=== PATIENT | female | born 2000 | race African-American/Black ===

== ENCOUNTER 2021-12-08 13:44 | Emergency (ER) | payer OTHER ==
--- OUTSIDE RECORDS SUMMARY | 2021-12-08 13:51 | XMS REPORT | Continuity of Care Document ---
:2000 Author Organization [facility] t Address [address] [place] [address] Care Team Providers Name Role Phone No, Pcp [facility] Primary Care Physician Unavailable TONI ALMARAZ Attending Clinician Unavailable TISH LONG Attending Clinician Unavailable KNOW, DOES_NOT Admitting Clinician Unavailable Payers Payer Name Policy Type Policy Number Effective Date Expiration Date S ource Problems Condition Condition Condition Status Onset Resolution Last Treating Co mments Source Name Details Category Date Date Treatment Clinician Date Anxiety Anxiety Disease Active 2018-[address] [facility] LOC (loss LOC (loss Disease Active 2018-[address] [facility] consciousn consciousn 00:00: Me dical ess) ess) 00 Center Seizure-li Seizure-li Disease Active 2018-[address] [facility] activity activity 00:00[facility] Medica l 00 Center Allergies, Adverse Reactions, Alerts Allergy Allergy Status Severity Reaction(s) Onset Inactive Treating Comm ents Source Name Type Date Date Clinician No Known DA Active [facility] 12[facility]20 [facility] d 00 [facility] No Known DA Active [facility] All[facility] 9-28 [facility] d 00 [facility] Social History Social Habit Start Date Stop Date Quantity Comments Source History SDOH [facility] Alcohol Std Drinks [facility]ica [facility] Center History SDOH [facility] Alcohol Binge [facility] History SDOH [facility] Alcohol Comment Medical C enter History of tobacco Smokes tobacco [facility] use daily Hospital Cigarettes smoked 2019-05-20 2019-05-20 Methodi current (pack per 00:00:00 00:00:00 Hospita l day) - Reported Tobacco use and 2019-02-24 2019-02-[address] [facility] [address] [facility] kes exposure 00:00:00 00:00:00 [facility] Alcohol intake 2019-02-24 2019-02-[address] [facility] [facility] es 00:00:00 00:00:00 non-drinker of Medical Ce nter alcohol (finding) History SDOH 2019-02-24 2019-02-[address] [facility] Alcohol Frequency 00:00:00 00:00:00 [facility] Sex [facility]igned At [birth year] [facility] Smoking Status Start Date Stop Date Source Smokes tobacco daily 2019-05-20 00:00:00 [facility] Light tobacco smoker 2019-02-24 00:00:00 [facility] Medications Ordered Filled Start Stop Current Ordering Indication Dosage Frequency Signature Comments Components Source Medication Medication Date Date Medication? Clinician (SIG) Name Name levETIRAcet 2019-0 Yes 500mg Q.5D Take 500 M ethodi am (KEPPRA) 2-[address] 500 MG 22:58: mouth 2 Hospita tablet 51 (two) l times a day. naproxen 2019-0 Yes 250mg Q.5D Take 250 Meth ml (NAPROSYN) 2-[address] 250 MG 22:58: mouth 2 [facility]osp[facility] tablet 51 (two) l times a day with meals. Procedures This patient has no known procedures. Plan of Care Planned Activity Planned Date Details Comments Source Future Scheduled 2021-11-23 INFLUENZA VACCINE (#1) [facility] 00:00[facility]00 [code = INFLUENZA Medical Ce nter VACCINE (#1)] Future Scheduled 2021-03-[address] [facility] Test 00:00:00 (12+) [code = [facility] DEPRESSION SCREENING (12+)] Future Scheduled [address] [facility] Test 00:00:00 (procedure) [code = [facility] [id number]] Future Scheduled 2020-01-29 DTAP/TDAP/TD VACCINES [facility] 00:00[facility]00 (1 - Tdap) [code = Medical C enter DTAP/TDAP/TD VACCINES (1 - Tdap)] Future Scheduled 2019 HEPATITIS C [facility]CRE[facility]ING [facility] 00:00[facility]00 [code = HEPATITIS C Medical Center SCREENING] Future Scheduled [address] [facility] Test 00:00:00 0-64 YRS (1 - PCV) Medical C enter [code = PNEUMOCOCCAL VACCINE 0-64 YRS (1 - PCV)] Future Scheduled 2001 COVID-19 VACCINE (#1) [facility] 00:[facility]:00 [code = COVID-[address] VACCINE (#1)] Encounters Start End Encounter Admission Attending Care Care Encounter Source Date/Time Date/Time Type Type Clinicians Facility Department ID 2019-04-05 Inpatient [facility] KARINA [id number] [facility] 15:40:00 [facility] 2019-05-20 2019-05-20 Emergency [facility] [id number] [place] 00:00:00 00:00:00 [address]ON[address] Results Test Description Test Time Test Comments Results Result Sourc e Comments - XR HAND 3 + V RT 2019-04-05 [place]: St: 18:07:00 REG Name: ALLI GUIDO [facility] : 2000 Age/S: 19/F [address] Unit #: [id number] Loc: [place] [address] Phys: Alfredo Jasso MD Acct: [id number] Dis Date: Status: [facility] ER PHONE #: [phone] Exam Date: 04/05/2019 1740 FAX #: [phone] Reason: [facility] EXAMS: CPT CODE: [id number] XR HAND 3 + V RT [id number] EXAM: Right wrist 3 views Location code: A1 HISTORY: Punched wall COMPARISON: None available FINDINGS: There is no acute fracture or dislocation. There is normal mineralization of the osseous structures. Joint spaces are maintained. Soft tissues are within normal limits. . IMPRESSION: Right wrist No acute osseous abnormality. EXAM: Right hand 3 views Location code: A1 HISTORY: punched wall COMPARISON: None available FINDINGS: There is no acute fracture or dislocation. There is normal mineralization of the osseous structures. Joint spaces are maintained. There is mild soft tissue swelling along the dorsum of the hand. PAGE 1 Signed Report (CONTINUED) [place]: [facility]: REG Name: ALLI GUIDO [facility] : 2000 Age/S: 19/F [address] Unit #: [id number] Loc: [place] [address] Phys: Alfredo Jasso MD Acct: [id number] Dis Date: Status: [facility] ER PHONE #: [phone] Exam Date: 04/05/2019 174 FAX #: [phone] Reason: [facility] EXAMS: CPT CODE: [id number] XR HAND 3 + V RT [id number] (Continued) IMPRESSION: Right hand 1. No acute osseous abnormality. 2. Soft tissue swelling along the dorsum of the hand. at 1807 Reported and signed by: Matthieu Salmeron MD CC: Technologist: Yisel Lin; CEASAR CONNELLY PAGE 2 Signed Report [place]: [facility]: REG Name: ALLI GUIDO [facility] : 2000 Age/S: 19/F [address] Unit #: [id number] Loc: [place] [address] Phys: Alfredo Jasso MD Acct: [id number] Dis Date: Status: REG ER PHONE #: [phone] Exam Date: 04/05/20191739 FAX #: [phone] Reason: puncehd wall EXAMS: CPT CODE: [id number] XR HAND 3 + V RT [id number] (Continued) [facility] Date/Time/By: 04/05/2019 (180) : By: [email or web address] PAGE 3 Signed Report - XR WRIST 3 + V 2019-04-05 [place]: [facility]: RT 18:07:00 REG Name: ALLI GUIDO [facility] : 2000 Age/S: 19/F [address] Unit #: [id number] Loc: [place] [address] Phys: Alfredo Jasso MD Acct: [id number] Dis Date: Status: REG ER PHONE #: [phone] Exam Date: 04/05/20191739 FAX #: [phone] Reason: pain s/p punchthroug wall EXAMS: CPT CODE: [id number] XR WRIST 3 + V RT [id number] EXAM: Right wrist 3 views Location code: A1 HISTORY: Punched wall COMPARISON: None available FINDINGS: There is no acute fracture or dislocation. There is normal mineralization of the osseous structures. Joint spaces are maintained. Soft tissues are within normal limits. . IMPRESSION: Right wrist No acute osseous abnormality. EXAM: Right hand 3 views Location code: A1 HISTORY: punched wall COMPARISON: None available FINDINGS: There is no acute fracture or dislocation. There is normal mineralization of the osseous structures. Joint spaces are maintained. There is mild soft tissue swelling along the dorsum of the hand. PAGE 1 Signed Report (CONTINUED) [place]: [facility]: REG Name: ALLI GUIDO [facility] : 2000 Age/S: 19/F [address] Unit #: [id number] Loc: [place] [address] Phys: Alfredo Jasso MD Acct: [id number] Dis Date: Status: REG ER PHONE #: [phone] Exam Date: 04/05/2019 4130 FAX #: [phone] Reason: pain s/p punchthroug wall EXAMS: CPT CODE: [id number] XR WRIST 3 + V RT [id number] (Continued) IMPRESSION: Right hand 1. No acute osseous abnormality. 2. Soft tissue swelling along the dorsum of the hand. at 1807 Reported and signed by: Matthieu Salmeron MD CC: Technologist: Corina Lin PAGE 2 Signed Report [place]: [facility]: REG Name: ALLI GUIDO [facility] : 2000 Age/S: 19/F [address] Unit #: [id number] Loc: [place] [address] Phys: Alfredo Jasso MD Acct: [id number] Dis Date: Status: REG ER PHONE #: [phone] Exam Date: 04/05/2019 1740 FAX #: [phone] Reason: pain s/p punchthroug wall EXAMS: CPT CODE: [id number] XR WRIST 3 + V RT [id number] (Continued) Trnscrd Date/Time/By: 04/05/2019 (180) : By: [email or web address] PAGE 3 Signed Report HCG POC 2019-04-05 16:36:00 Test Item Value Reference Range Interpretation Comme nts HCG POC <5.0 0-4.9 N Results of (test IU/L 5.0-25.0 IU/L a re indeterminate and do not ruleout . Because code = HCG values doub le approximately every48 hours in a normal , HCGPOC) patients with l ow levels ofHCG should be resampled and retested after 48 hours toconf irm . URINALYSIS [id number] 16:21:00 Test Item Value Reference Range Interpretation Comments UA COLOR (test code = COLU) Straw Yellow UA APPEARANCE (test code = Clear Clear APPU) UA GLUCOSE DIPSTICK (test Negative Negative code = DGLUU) UA BILIRUBIN DIPSTICK (test Negative Negative code = BILU) UA KETONE DIPSTICK (test code Negative mg/dL Negative = KETU) UA SPECIFIC GRAVITY (test 1.002 <1.030 code = SGU) UA BLOOD DIPSTICK (test code Negative Negative = YAS) UA PH DIPSTICK (test code = 7.0 5.0-8.0 MARIANO) UA PROTEIN DIPSTICK (test NEGATIVE mg/dL Negative code = PROU) UA UROBILINOGEN DIPSTICK Negative mg/dL Negative (test code = URO) UA NITRITE DIPSTICK (test Negative Negative code = ONEYDA) UA LEUKOCYTE ESTERASE NEGATIVE Negative DIPSTICK (test code = LEUU) UA WBC (test code = WBCU) 0-3 /HPF <4-5 UA RBC (test code = RBCU) 0-3 /HPF <4-5 UA BACTERIA (test code = Rare /HPF None-Rare BACU) UA SQUAMOUS CELLS (test code 0-5 (RARE) /HPF 0-5 (RARE) = SQU) BASIC METABOLIC [id number] 16:20:00 Test Item Value Reference Range Interpretation Comments SODIUM (test code = 136 mmol/L 137-145 L NA) POTASSIUM (test code 5.1 mmol/L 3.4-5.0 H IS THE SAMPLE = K) HEMOLYZED?:YHEM OLYSIS GRADE:2+ CHLORIDE (test code = 104 mmol/L 98-107 N CL) CARBON DIOXIDE (test 27 mmol/L 22-30 N code = CO2) GLUCOSE (test code = 89 mg/dL 74-106 N GLU) BLOOD UREA NITROGEN 12 mg/dL 7-17 N (test code = BUN) GLOMERULAR FILTRATION 140 >60 The es timated RATE (test code = glomerular filtration GFR) rate is compute d usingpatient ra ce, age (>18), sex, and serum creatinine. If anyof the needed data elements are mi ssing the Laboratory cannot compute an kenzie mation of the glomerul ar filtration rate . CREATININE (test code 0.7 mg/dL 0.5-1.0 N = CREAT) CALCIUM (test code = 8.9 mg/dL 8.4-10.2 N CA) CBC W/AUTO [id number] 16:11:00 Test Item Value Reference Range Interpretation Comments WHITE BLOOD CELL (test code = 5.9 x10 3/uL 5.0-12.0 N WBC) RED BLOOD CELL (test code = 4.52 x10 6/uL 4.20-5.40 N RBC) HEMOGLOBIN (test code = HGB) 11.3 g/dL 12.0-16.0 L HEMATOCRIT (test code = HCT) 33.3 % 36.0-46.0 L MEAN CELL VOLUME (test code = 74 fL 81-99 L MCV) MEAN CELL HGB (test code = MCH) 25.0 pg 27-31 L MEAN CELL HGB CONCENTRATION 33.9 g/dL 33-37 N (test code = MCHC) RED CELL DISTRIBUTION WIDTH 15.5 % 11.5-15.5 N (test code = RDW) PLATELET COUNT (test code = 357 x10 3/uL 130-400 N PLT) MEAN PLATELET VOLUME (test code 10.3 fL 9.4-16.4 N = MPV) NEUTROPHIL % (test code = NT%) 65.7 % 43-65 H IMMATURE GRANULOCYTE % (test 0.3 % 0.0-2.0 N code = IG%) LYMPHOCYTE % (test code = LY%) 24.2 % 20.5-45.5 N MONOCYTE % (test code = MO%) 8.0 % 5.5-11.7 N EOSINOPHIL % (test code = EO%) 1.5 % 0.9-2.9 N BASOPHIL % (test code = BA%) 0.3 % 0.2-1.0 N NUCLEATED RBC % (test code = 0.0 % 0-1.0 N NRBC%) NEUTROPHIL # (test code = NT#) 3.87 x10 3/uL 2.2-4.8 N IMMATURE GRANULOCYTE # (test 0.02 x10 3/uL 0-0.03 N code = IG#) LYMPHOCYTE # (test code = LY#) 1.43 x10 3/uL 1.3-2.9 N MONOCYTE # (test code = MO#) 0.47 x10 3/uL 0.3-0.8 N EOSINOPHIL # (test code = EO#) 0.09 x10 3/uL 0.0-0.2 N BASOPHIL # (test code = BA#) 0.02 x10 3/uL 0.0-0.1 N MR, BRAIN, [id number] 12:12:00Anesthesia:->NoneDeos the patient have an implanted electronic device?->NoFINAL REPORT MRI Brain with and without contrast Clinical History: Seizure, abnormal neuro examseizure protocol Technique: MRI of the brain utilizing axial T1, T2, FLAIR, GRE, DWI, coronal T1, T2, FLAIR, sagittal T1. Postgadolinium axial and coronal T1-weighted images. Comparisons: None Findings: There is no evidence for focal cortical dysplasia or heterotopia. The hippocampal formations are symmetrical in size, shape, and signal intensity. Brain parenchyma is otherwise normal in morphology. No midline shift. No restricted diffusion to suggest recent ischemic insult. No abnormal susceptibility. No hydrocephalus. Orbits are within normal limits. No obstructive paranasal sinus disease. IMPRESSION: No anatomic etiology of seizure identified. Signed: Davon Turnerort Verified Date/Time: 02/25/2019 12:12:10 Reading Location: [facility] B1 C013W Consult Reading Room RAPID DRUG SCREEN, [id number] 15:26:00 Test Item Value Reference Range Interpretation Comments BARBITURATE URINE (BEAKER) (test Negative Negative code = 725) BENZODIAZEPINE SCREEN URINE (BEAKER) Positive Negative A (test code = 726) COCAINE (METAB.) SCREEN (BEAKER) Negative Negative (test code = 1164) METHADONE SCREEN (BEAKER) (test code Negative Negative = 1436) OPIATE SCREEN URINE (BEAKER) (test Negative Negative code = 734) CANNABINOID SCREEN URINE (BEAKER) Positive Negative A (test code = 727) AMPH/METHAMPH SCREEN (BEAKER) (test Negative Negative code = 1438) PHENCYCLIDINE SCREEN URINE (BEAKER) Negative Negative (test code = 608) DRUG CUTOFF CONC.Cocaine 300 ng/mL Cannabinoid 50 ng/mLBenzodiazepine 200 ng/mLBarbiturate 200 ng/mLPhencyclidine 25 ng/mLOpiate 300 ng/mLMethadone 300 ng/mLAmphetamine/ 1000 ng/mL MethamphetamineThis assay provides an unconfirmed qualitative test result for the clinical management of patients in emergency situations. Chain of custody not maintained. Some pvsp-tji-qdzgjcs medications, as well as adulterants, may cause inaccurate results. Clinical correlation should be applied. A more comprehensive drug screen or confirmation of a detected drug may be performed upon request.COMPREHENSIVE METABOLIC PANEL 2019-02-24 14:54:00 Test Item Value Reference Range Interpretation Comments TOTAL PROTEIN 7.4 gm/dL 6.0-8.5 (BEAKER) (test code = 770) ALBUMIN (BEAKER) 4.3 g/dL 3.5-5.0 (test code = 1145) ALKALINE PHOSPHATASE 73 U/L 30-115 (BEAKER) (test code = 346) BILIRUBIN TOTAL 0.5 mg/dL 0.1-1.3 (BEAKER) (test code = 377) SODIUM (BEAKER) 143 meq/L 135-148 (test code = 381) POTASSIUM (BEAKER) 4.1 meq/L 3.5-5.5 (test code = 379) CHLORIDE (BEAKER) 107 meq/L 98-106 H (test code = 382) CO2 (BEAKER) (test 26 meq/L 20-31 code = 355) BLOOD UREA NITROGEN 11 mg/dL 10-26 (BEAKER) (test code = 354) CREATININE (BEAKER) 0.86 mg/dL 0.50-1.20 (test code = 358) GLUCOSE RANDOM 83 mg/dL 70-110 (BEAKER) (test code = 652) CALCIUM (BEAKER) 9.2 mg/dL 8.5-10.5 (test code = 697) AST (SGOT) (BEAKER) 15 U/L 5-40 (test code = 353) ALT (SGPT) (BEAKER) 9 U/L 6-50 (test code = 347) EGFR (BEAKER) (test 104 INSUFFIC IENT code = 1092) mL/min/1.73 sq CLINICAL DATA TO m CALCULATE ESTIM ATED GFR. URINALYSIS W/ [id number] 14:29:00 Test Item Value Reference Range Interpretation Comments COLOR (BEAKER) (test code = 470) Yellow CLARITY (BEAKER) (test code = 469) Hazy SPECIFIC GRAVITY UA (BEAKER) (test 1.030 1.001-1.035 code = 468) PH UA (BEAKER) (test code = 467) 6.0 5.0-8.0 PROTEIN UA (BEAKER) (test code = Negative Negative 464) GLUCOSE UA (BEAKER) (test code = Negative Negative 365) KETONES UA (BEAKER) (test code = Negative Negative 371) BILIRUBIN UA (BEAKER) (test code = Negative Negative 462) BLOOD UA (BEAKER) (test code = 461) Negative Negative NITRITE UA (BEAKER) (test code = Negative Negative 465) LEUKOCYTE ESTERASE UA (BEAKER) Negative Negative (test code = 466) UROBILINOGEN UA (BEAKER) (test code 2.0 mg/dL 0.2-1.0 H = 463) RBC UA (BEAKER) (test code = 519) 1 /HPF WBC UA (BEAKER) (test code = 520) 2 /HPF BACTERIA (BEAKER) (test code = 517) Moderate MUCUS (BEAKER) (test code = 1574) Many SQUAMOUS EPITHELIAL (BEAKER) (test 6 /HPF code = 516) HYALINE CASTS (BEAKER) (test code = 2 /LPF 514) SOURCE(BEAKER) (test code = 2905) CBC W/PLT COUNT & AUTO [id number] 14:22:00 Test Item Value Reference Range Interpretation Comments WHITE BLOOD CELL COUNT 5.5 K/ L 4.0-10.0 (BEAKER) (test code = 775) RED BLOOD CELL COUNT 5.00 M/ L 4.20-5.80 (BEAKER) (test code = 761) HEMOGLOBIN (BEAKER) 12.6 GM/DL 13.0-16.8 L (test code = 410) HEMATOCRIT (BEAKER) 37.0 % 36.0-50.0 (test code = 411) MEAN CORPUSCULAR VOLUME 74.0 fL 82.0-99.0 L (BEAKER) (test code = 753) MEAN CORPUSCULAR 25.2 pg 27.0-33.0 L HEMOGLOBIN (BEAKER) (test code = 751) MEAN CORPUSCULAR 34.1 GM/DL 32.0-36.0 HEMOGLOBIN CONC (BEAKER) (test code = 752) RED CELL DISTRIBUTION 16.0 % 12.0-15.0 H WIDTH (BEAKER) (test code = 412) PLATELET COUNT (BEAKER) 356 K/CU MM 150-430 (test code = 756) MEAN PLATELET VOLUME 10.0 fL 6.0-11.5 MPV-Danilo roximately (BEAKER) (test code = 20% po sitive bias 754) due to method change. NUCLEATED RED BLOOD 0 /100 WBC 0-0 CELLS (BEAKER) (test code = 413) NEUTROPHILS RELATIVE 56 % PERCENT (BEAKER) (test code = 429) LYMPHOCYTES RELATIVE 30 % PERCENT (BEAKER) (test code = 430) MONOCYTES RELATIVE 8 % PERCENT (BEAKER) (test code = 431) EOSINOPHILS RELATIVE 6 % PERCENT (BEAKER) (test code = 432) BASOPHILS RELATIVE 1 % PERCENT (BEAKER) (test code = 437) NEUTROPHILS ABSOLUTE 3.06 K/ L 1.80-8.00 COUNT (BEAKER) (test code = 670) LYMPHOCYTES ABSOLUTE 1.63 K/ L 1.48-4.50 COUNT (BEAKER) (test code = 414) MONOCYTES ABSOLUTE 0.45 K/ L 0.00-1.30 COUNT (BEAKER) (test code = 415) EOSINOPHILS ABSOLUTE 0.33 K/ L 0.00-0.50 COUNT (BEAKER) (test code = 416) BASOPHILS ABSOLUTE 0.03 K/ L 0.00-0.20 COUNT (BEAKER) (test code = 417) IMMATURE 0 % 0-0 GRANULOCYTES-RELATIVE PERCENT (BEAKER) (test code = 2801) CT, BRAIN, WITHOUT [id number] 14:15:00Reason for exam:->seizure activityReason for exam:->h/o pseudoseizuresWhat is the patient's sedation requirement?->No SedationFINAL REPORT CT, BRAIN, WITHOUT CONTRAST CLINICAL INDICATION: seizure activityh/o pseudoseizuresfall yesterday/ head contusion COMPARISON: None TECHNIQUE: Noncontrast axial CT imaging of the brain and skull. DOSE REDUCTION: Dose modulation, iterative reconstruction, and/or weight-based adjustment of the mA/kV was utilized to reduce the radiation dose to as low as reasonably achievable. FINDINGS:No intracranial hemorrhage, midline shift or mass effect. Midline structures are normally developed. No hydrocephalus. Orbits are within normal limits. No obstructive paranasal sinus disease. IMPRESSION: No acute intracranial findings If there is persistent clinical concern for intracranial pathology, MR examination is recommended for further characterization. Signed: Davon Turner MDReport Verified Date/Time: 02/24/2019 14:15:38 Reading Location: [facility] C013V Neuro Reading Room Elec tronically signed by: DAVON TURNER MD on 02/24/2019 02:15 PM
[2021-12-08 15:56] LABS: Urine Blood 1+ (Negative); Urine Glucose Negative (Negative); Urine Protein Trace (Negative); Urine Specific Gravity 1.025 (1.005-1.030)
[2021-12-08 16:19] LABS: Urine Mucus 1+ /HPF (None Seen); Urine RBC <5 /HPF (None Seen)
[2021-12-08] MEDS ORDERED: METOCLOPRAMIDE 10 MG/2mL INJ ONE (16:34)
[2021-12-08] MEDS ORDERED: DIPHENHYDRAMINE 50 MG/ML VIAL ONE (16:34)
[2021-12-08] MEDS ORDERED: NA CHLORIDE 0.9% 1,000 ML ONE (16:34)
[2021-12-08] MEDS ORDERED: dexAMETHasone 10 MG/ML VIAL ONE (16:34)
--- NOTE | 2021-12-08 17:00 | RAD REPORT ---
EXAM DESCRIPTION: CT - Head Brain Wo Cont - 12/08/2021 4:48 pm CLINICAL HISTORY: left side headache COMPARISON: No comparisons TECHNIQUE: All CT scans are performed using dose optimization technique as appropriate and may inclu de automated exposure control or mA/KV adjustment according to patient size. FINDINGS: No intracranial hemorrhage, hydrocephalus or extra-axial fluid collection.No areas of brai n edema or evidence of midline shift. The paranasal sinuses and mastoids are clear. The calvarium is intact. IMPRESSION: No acute intracranial abnormality.
[2021-12-08 17:05] LABS: Absolute Lymphocytes (CBC) 1.8 K/uL (0.7-4.9); Lymphocytes % 24.2 % (15.3-44.8); MCV 76.1 fL (80-100); MPV 8.1 fL (7.6-11.3); RBC Red Blood Cell Count 4.47 M/uL (3.86-4.86)
[2021-12-08] MEDS ORDERED: KETOROLAC 30 MG/ML INJ ONE (17:34)
[2021-12-08 17:35] LABS: Potassium 3.8 mmol/L (3.5-5.1)
--- NOTE | 2021-12-08 18:35 | ER ---
Nurse's Notes [facility] Name: Jocy Claros Age: 21 yrs Sex: Female : 2000 Arrival Date: 12/08/2021 Time: 14:15 Bed 28 Private MD: Diagnosis: Headache Presentation: 12/08 14:35 Chief complaint: Patient states: headache for 3 weeks, continued without relief after kr3 taking ibuprofen 400 mg and then taking anbother 400mg an 1 1/2 later. Coronavirus screen: Vaccine status: Patient reports being unvaccinated. Client denies travel out of the [place] in the last 14 days. Ebola Screen: Patient denies travel to an Ebola-affected area in the 21 days before illness onset. Initial Sepsis Screen: Does the patient meet any 2 criteria? No. Patient's initial sepsis screen is negative. Does the patient have a suspected source of infection? No. Patient's initial sepsis screen is negative. Risk Assessment: Do you want to hurt yourself or someone else? Patient reports no desire to harm self or others. Onset of symptoms was December 08, 2021. 14:35 Method Of Arrival: Ambulatory [facility] 14:35 Acuity: FILEMON 3 kr3 Triage Assessment: 14:41 Headache History: The patient has had previous headaches and this one is different than 3 previous episodes. General: Appears in no apparent distress. uncomfortable, Behavior is calm, cooperative, appropriate for age. Pain: Pain currently is 9 out of 10 on a pain scale. Pain began 3 weeks. Neuro: Level of Consciousness is awake, alert, obeys commands, Oriented to person, place, time. Historical: - Allergies: 14:38 No Known Allergies; kr3 - PMHx: 14:38 epilepsy; kr3 - Immunization history:: Adult Immunizations. - Social history:: Smoking status: Patient reports the use of cigarette tobacco products, denies chronic smoking, but will smoke occasionally, Reported history of juuling and/or vaping. Screenin:44 Abuse screen: Denies threats or abuse. Denies injuries from another. Nutritional hb screening: No deficits noted. Tuberculosis screening: No symptoms or risk factors identified. Fall Risk None identified. Assessment: 15:43 General: Appears in no apparent distress. Behavior is calm, cooperative. Pain: Pain hb currently is 9 out of 10 on a pain scale. Neuro: Level of Consciousness is awake, alert, obeys commands, Oriented to person, place, time, situation. Cardiovascular: Patient's skin is warm and dry. Respiratory: Respiratory effort is even, unlabored, Respiratory pattern is regular, symmetrical. GI: No signs and/or symptoms were reported involving the gastrointestinal system. : No signs and/or symptoms were reported regarding the genitourinary system. EENT: No signs and/or symptoms were reported regarding the EENT system. Derm: Skin is pink, warm \T\ dry. Musculoskeletal: No signs and/or symptoms reported regarding the musculoskeletal system. 16:45 Reassessment: Patient appears in no apparent distress at this time. Patient and/or hb family updated on plan of care and expected duration. Pain level reassessed. Patient is alert, oriented x 3, equal unlabored respirations, skin warm/dry/pink. 17:45 Reassessment: Patient appears in no apparent distress at this time. Patient and/or hb family updated on plan of care and expected duration. Pain level reassessed. Patient is alert, oriented x 3, equal unlabored respirations, skin warm/dry/pink. 18:19 Reassessment: Patient appears in no apparent distress at this time. Patient and/or hb family updated on plan of care and expected duration. Pain level reassessed. Patient is alert, oriented x 3, equal unlabored respirations, skin warm/dry/pink. Vital Signs: 14:35 BP 118 / 80; Pulse 68; Resp 16; Temp 98.4; Pulse Ox 100% on R/A; Weight 88.45 kg; kr3 Height 5 ft. 8 in. (172.72 cm); Pain 9/10; 17:45 BP 124 / 78; Pulse 66; Resp 15; Pulse Ox 99% on R/A; Pain 3/10; hb 14:35 Body Mass Index 29.65 (88.45 kg, 172.72 cm) kr3 ED Course: 14:15 Patient arrived in ED. mr 14:33 Noel Banuelos PA is PHCP. cp 14:33 Jefferson Nichols MD is Attending Physician. cp 14:38 Triage completed. kr3 14:42 Arm band placed on right wrist. kr3 15:36 Rola Chauhan, NICOLE is Primary Nurse. hb 15:44 Patient has correct armband on for positive identification. hb 16:35 Inserted saline lock: 22 gauge in left antecubital area, using aseptic technique. Blood hb collected. 16:50 CT Head Brain wo Cont In Process Unspecified. EDMS 18:33 Lam Chadwick MD is Referral Physician. cp 18:44 No provider procedures requiring assistance completed. IV discontinued, intact, hb bleeding controlled, No redness/swelling at site. Administered Medications: 16:35 Drug: NS 0.9% 1000 ml Route: IV; Rate: 1 bolus; Site: left antecubital; hb 16:35 Drug: Reglan (metoCLOPramide) 10 mg Route: IVP; Site: left antecubital; hb 16:35 Drug: Benadryl (diphenhydrAMINE) 25 mg Route: IVP; Site: left antecubital; hb 16:35 Drug: Dexamethasone 10 mg Route: IVP; Site: left antecubital; hb 18:10 Drug: Ketorolac 30 mg Route: IVP; Site: left antecubital; hb Medication: 18:44 VIS not applicable for this client. hb Outcome: 18:34 Discharge ordered by MD. cp 18:44 Discharged to home ambulatory. hb 18:44 Condition: stable 18:44 Discharge instructions given to patient, Instructed on discharge instructions, follow up and referral plans. medication usage, Demonstrated understanding of instructions, follow-up care, medications, Prescriptions given X 2. 18:45 Patient left the ED. hb Signatures: Dispatcher [employer] EDNY Desiree Beyer mr Noel Banuelos PA PA cp Rola Chauhan RN RN hb Irish Hansen RN RN kr3 Corrections: (The following items were deleted from the chart) 14:41 14:38 PMHx: Diabetes mellitus; kr3 kr3
--- NOTE | 2021-12-08 18:35 | EDPHYS ---
Physician Documentation [facility] Name: oJcy Claros Age: 21 yrs Sex: Female : 2000 Arrival Date: 12/08/2021 Time: 14:15 Bed 28 Private MD: ED Physician Jefferson Nichols HPI: 12/08 15:50 This 21 yrs old Black Female presents to ER via Ambulatory with complaints of Headache. cp 15:50 The patient complains of pain to the left bahai and behind left eye. The patient cp describes the headache as aching, waxing and waning. Onset: The symptoms/episode began/occurred 1 month(s) ago. 15:50 Associated signs and symptoms: Pertinent negatives: altered mental status, fever, neck cp stiffness, paresthesias, sinus congestion, sinus tenderness, vision changes, vomiting, weakness. Severity of symptoms: in the emergency department the pain is unchanged, despite home interventions. Patient reports history of epilepsy. Weaned herself off prescribed seizure meds about 6 months ago and reports last seizure approximately 4 months ago. Historical: - Allergies: 14:38 No Known Allergies; kr3 - PMHx: 14:38 epilepsy; kr3 - Immunization history:: Adult Immunizations. - Social history:: Smoking status: Patient reports the use of cigarette tobacco products, denies chronic smoking, but will smoke occasionally, Reported history of juuling and/or vaping. ROS: 15:55 Constitutional: Negative for body aches, chills, fever, poor PO intake. cp 15:55 Cardiovascular: Negative for chest pain, edema, palpitations. cp 15:55 Respiratory: Negative for cough, shortness of breath, wheezing. 15:55 Eyes: Negative for injury, pain, redness, and discharge. cp 15:55 ENT: Negative for drainage from ear(s), ear pain, sore throat, difficulty swallowing, difficulty handling secretions. 15:55 Abdomen/GI: Negative for abdominal pain, nausea, vomiting, and diarrhea. 15:55 : Negative for urinary symptoms. 15:55 Neuro: Positive for headache, Negative for altered mental status, dizziness, numbness, tingling, weakness. 15:55 All other systems are negative. Exam: 16:10 Constitutional: The patient appears in no acute distress, alert, awake, non-toxic, well cp developed, well nourished. 16:10 Head/Face: Normocephalic, atraumatic. cp 16:10 Eyes: Periorbital structures: appear normal, Pupils: equal, round, and reactive to light and accomodation, Extraocular movements: intact throughout, Conjunctiva: normal, no exudate, no injection, Sclera: no appreciated abnormality, Lids and lashes: appear normal, bilaterally. 16:10 ENT: External ear(s): are unremarkable, Ear canal(s): are normal, clear, TM's: dullness, bilaterally, Nose: is normal, Mouth: Lips: moist, Oral mucosa: pink and intact, moist, Posterior pharynx: Airway: no evidence of obstruction, patent, Tonsils: are normal in appearance, Uvula: normal, erythema, is not appreciated, exudate, is not appreciated. 16:10 Neck: ROM/movement: is normal, is supple, without pain, no range of motions limitations, no meningismus, no nuchal rigidity, Lymph nodes: no appreciated lymphadenopathy. 16:10 Chest/axilla: Inspection: normal. 16:10 Cardiovascular: Rate: normal, Rhythm: regular. 16:10 Respiratory: the patient does not display signs of respiratory distress, Respirations: normal, no use of accessory muscles, no retractions, labored breathing, is not present, Breath sounds: are clear throughout, no decreased breath sounds, no stridor, no wheezing. 16:10 Abdomen/GI: Exam negative for discomfort, distension, guarding, Inspection: abdomen appears normal. 16:10 Back: pain, is absent, ROM is normal. 16:10 Neuro: Orientation: to person, place \T\ time. Mentation: is normal, Cerebellar function: is grossly normal, Motor: moves all fours, strength is normal, Sensation: is normal, Gait: is steady, at a normal pace, without difficulty. Vital Signs: 14:35 BP 118 / 80; Pulse 68; Resp 16; Temp 98.4; Pulse Ox 100% on R/A; Weight 88.45 kg; kr3 Height 5 ft. 8 in. (172.72 cm); Pain 9/10; 17:45 BP 124 / 78; Pulse 66; Resp 15; Pulse Ox 99% on R/A; Pain 3/10; hb 14:35 Body Mass Index 29.65 (88.45 kg, 172.72 cm) kr3 MDM: 15:42 Patient medically screened. cp 18:33 Data reviewed: vital signs, nurses notes, lab test result(s), radiologic studies, CT cp scan. 18:33 Counseling: I had a detailed discussion with the patient and/or guardian regarding: the cp historical points, exam findings, and any diagnostic results supporting the discharge/admit diagnosis, radiology results, the need for outpatient follow up, a neurologist, to return to the emergency department if symptoms worsen or persist or if there are any questions or concerns that arise at home. 12/08 15:42 Order name: Urine Microscopic Only; Complete Time: 17:08 12/08 15:57 Order name: Urine Dipstick-Ancillary; Complete Time: 16:18 EDMS 12/08 16:05 Order name: Urine --Ancillary (enter results) em1 12/08 16:20 Order name: CT Head Brain wo Cont; Complete Time: 17:08 cp 12/08 16:20 Order name: CBC with Diff; Complete Time: 17:08 12/08 17:08 Interpretation: Normal except: HGB 11.6; HCT 34.0; MCV 76.1; MCH 26.0; RDW 16.3; cp EOSINOPHIL % 4.6. 12/08 16:20 Order name: BMP; Complete Time: 18:07 cp 12/08 15:42 Order name: Urine Dipstick-Ancillary (obtain specimen); Complete Time: 16:03 12/08 15:42 Order name: Urine Test (obtain specimen); Complete Time: 16:03 12/08 16:20 Order name: IV; Complete Time: 16:48 cp Administered Medications: 16:35 Drug: NS 0.9% 1000 ml Route: IV; Rate: 1 bolus; Site: left antecubital; hb 16:35 Drug: Reglan (metoCLOPramide) 10 mg Route: IVP; Site: left antecubital; hb 16:35 Drug: Benadryl (diphenhydrAMINE) 25 mg Route: IVP; Site: left antecubital; hb 16:35 Drug: Dexamethasone 10 mg Route: IVP; Site: left antecubital; hb 18:10 Drug: Ketorolac 30 mg Route: IVP; Site: left antecubital; hb Disposition Summary: 12/08/21 18:34 Discharge Ordered Location: Home cp Problem: new cp Symptoms: have improved cp Condition: Stable cp Diagnosis - Headache cp Followup: cp - With: Lam Chadwick MD - When: 1 week - Reason: Recheck today's complaints Discharge Instructions: - Discharge Summary Sheet cp - Migraine Headache cp Forms: - Medication Reconciliation Form cp - Thank You Letter cp - Antibiotic Education cp - Prescription Opioid Use cp Prescriptions: - Fioricet 50-300-40 mg Oral capsule - take 1 capsule by ORAL route every 4 hours as needed; 20 capsule; Refills: 0, cp Product Selection Permitted - promethazine 25 mg Oral Tablet - take 1 tablet by ORAL route every 6 hours As needed; 20 tablet; Refills: 0, cp Product Selection Permitted Signatures: Dispatcher [employer] EDMS Noel Banuelos PA PA cp Rola Chauhan, RN RN Irish Hansen RN RN kr3 Corrections: (The following items were deleted from the chart) 14:41 14:38 PMHx: Diabetes mellitus; kr3 kr3
[2021-12-08 22:15] LABS: Urine Specific Gravity/Preg 1.025 (1.005-1.030)
[2021-12-10 02:16] VITALS: BP 118/80; TEMP 98.4; O2SAT 100
== END 2021-12-08 18:45 | disposition home or self-care (01) ==
LOC: ER 13:44
DX: R51.9 Headache, unspecified (principal); G40.909 Epilepsy, unspecified, not intractable, without status epilepticus; F17.210 Nicotine dependence, cigarettes, uncomplicated
CPT/HCPCS: 85025; 80048; 36415; 81025; 70450; 96375; 96374; 99284; J2765; J1200; J1100; J7030; 81003; 81015

== ENCOUNTER 2022-03-25 20:50 | Emergency (ER) | payer OTHER ==
--- OUTSIDE RECORDS SUMMARY | 2022-03-25 20:54 | XMS REPORT | Continuity of Care Document ---
:2000 Author Organization [facility] t Address [address] [place] [address] Care Team Providers Name Role Phone Asked, No Pcp Primary Care Physician Unavailable TONI ALMARAZ Attending Clinician Unavailable TISH LONG Attending Clinician Unavailable KNOW, DOES_NOT Admitting Clinician Unavailable Payers Payer Name Policy Type Policy Number Effective Date Expiration Date Reanna alvarez [facility] - [id number] [employer] [place] (MEDICAID REPLACEMENT - HMO) Problems Condition Condition Condition Status Onset Resolution [...] Known DA [facility] [place] [facility] No Known DA [facility] [place] [facility] Social History Social Habit Start Date Stop Date Quantity Comments Source History of tobacco Cigarette Smoker [facility] use Hospital History SDTX [facility] Alcohol Std Drinks Medica l Center History SDOH [facility] Alcohol Binge Medical [facility] History SDTX [facility] Alcohol Comment Medical C enter Cigarettes smoked 2019-05-20 2019-05-20 [facility] current (pack per 00:00:00 00:00:00 Hospita l day) - Reported Tobacco use and 2019-02-24 2019-02-[address] [facility] exposure 00:00:00 00:00:00 [facility] Center Alcohol intake 2019-02-24 2019-02-[address] [facility] 00:00:00 00:00:00 non-drinker of Medical Ce nter alcohol (finding) History SDOH 2019-02-24 2019-02-[address] [facility] Alcohol Frequency 00:00:00 00:00:00 [facility] Center Sex Assigned At [birth year] [facility] 00:00:00 00:00:00 Hospital Smoking Status Start Date Stop Date Source Smokes tobacco daily 2019-05-20 00:00:00 [facility] Light tobacco smoker 2019-02-24 00:00:00 [facility] Medications Ordered Filled Start Stop Current Ordering Indication Dosage Frequency Signature Comments Components Source Medication Medication Date Date Medication? Clinician (SIG) Name Name levETIRAcet 2020-0 Yes 500mg Q.5D Take 500 M ethodi am (KEPPRA) 2-[address] 500 MG 22:58: mouth 2 Hospita tablet 51 (two) l times a day. naproxen 2020-0 Yes 250mg Q.5D Take 250 Meth ml (NAPROSYN) 2-[address] 250 MG 22:58: mouth 2 Hospita tablet 51 (two) l times a day with meals. levETIRAcet 2020-0 Yes 500mg Q.5D Take 500 M ethodi am (KEPPRA) 2-[address] 500 MG 22:58: mouth 2 Hospita tablet 51 (two) l times a day. naproxen 2020-0 Yes 250mg Q.5D Take 250 Meth ml [...] [facility] 00:00[facility]00 (12+) [code = Medical Center DEPRESSION SCREENING (12+)] Future Scheduled [address] [facility] Test 00:00:00 (procedure) [code = Medical Center 61022830] Future Scheduled 2020-01-29 DTAP/TDAP/TD VACCINES [facility] [...] Facility Department ID 2019-04-05 Inpatient [facility] K[facility] [id number] [facility] 15:40:00 82 [facility] 2021-06-05 2021-06-05 Outpatient PRIV PRIV [id number] [facility] 12:38:00 12:38:00 [id number] Medica l 2021-06-03 2021-06-03 Outpatient PRIV PRIV [id number] [facility] 06:48:00 06:48:00 [id number] Medica l 2021-05-27 2021-05-27 Outpatient PRIV PRIV [id number] [id number] [facility] 07:06:00 07:06:00 [id number] Medica l 2021-05-27 2021-05-27 Outpatient PRIV PRIV [id number] [id number] [facility] 07:06:00 07:06:00 [id number] Medica l 2019-05-20 2019-05-20 Emergency [facility] [id number] [place] 00:00:00 00:00:00 [facility] [address] [facility] Results Test Description Test Time Test Comments Results Result Ángel e Comments - XR HAND 3 + V RT 2019-04-05 [place]: St: 18:07:00 REG Name: LATAALLI Lucian [facility] : 2000 Age/S: 19/F [address] Unit #: [id number] Loc: [place] [address] Phys: Alfredo Jasso MD Acct: [id number] Dis Date: Status: REG ER PHONE #: [phone] Exam Date: 04/05/2019 1740 FAX #: [phone] Reason: [facility] wall EXAMS: CPT CODE: [id number] XR HAND 3 + V RT [id number] EXAM: Right wrist 3 views Location code: [...] the hand. PAGE 1 Signed Report (CONTINUED) [place]: St: REG Name: ALLI GUIDO [facility] : 2000 Age/S: 19/F [address] Unit #: [id number] Loc: [place] [address] Phys: Alfredo Jasso MD Acct: [id number] Dis Date: Status: REG ER PHONE #: [phone] Exam Date: 04/05/2019 1740 FAX #: [phone] Reason: [place] wall EXAMS: CPT CODE: [id number] XR HAND 3 + V RT [id number] (Continued) IMPRESSION: Right hand 1. No acute osseous abnormality. 2. Soft tissue swelling along the dorsum of the hand. at 1807 Reported and signed by: Matthieu Salmeron MD CC: Technologist: Yisel Lin; CEASAR CONNELLY PAGE 2 Signed Report [place]: [facility]: REG Name: ALLI GUIDO [facility] : 2000 Age/S: 19/F [address] Unit #: [id number] Loc: [place] [address] Phys: Alfredo Jasso MD Acct: [id number] Dis Date: Status: REG ER PHONE #: [phone] Exam Date: 04/05/2019 1740 FAX #: [phone] Reason: [facility] wall EXAMS: CPT CODE: [id number] XR HAND 3 + V RT [id number] (Continued) [facility] Date/Time/By: 04/05/2019 (1807) : By: [email or web address] PAGE 3 Signed Report - XR WRIST 3 + V 2019-04-05 [place]: St: RT 18:07:00 REG Name: ALLI [place] : 2000 Age/S: 19/F [address] Unit #: [id number] Loc: [place] [address] Phys: Alfredo Jasso MD Acct: [id number] Dis Date: Status: REG ER PHONE #: [phone] Exam Date: 04/05/2019 1740 FAX #: [phone] Reason: pain s/p [place] wall EXAMS: CPT CODE: [id number] XR WRIST 3 + V RT [id number] EXAM: Right wrist 3 views Location code: [...] the hand. PAGE 1 Signed Report (CONTINUED) [place]: St: REG Name: ALLI [place]wood : 2000 Age/S: 19/F [address] Unit #: [id number] Loc: [place] [address] Phys: Alfredo Jasso MD Acct: [id number] Dis Date: Status: [facility] ER PHONE #: [phone] Exam Date: 04/05/2019 174 FAX #: [phone] Reason: pain s/p [place] wall EXAMS: CPT CODE: [id number] XR WRIST 3 + V RT [id number] (Continued) IMPRESSION: Right hand 1. No acute osseous abnormality. 2. Soft tissue swelling along the dorsum of the hand. at 1807 Reported and signed by: Matthieu Salmeron MD CC: Technologist: Yisel Lin; CEASAR CONNELLY PAGE 2 Signed Report [place]: St: REG Name: ALLI GUIDO [facility] : 2000 Age/S: 19/F [address] Unit #: [id number] Loc: [place] [address] Phys: Alfredo Jasso MD Acct: [id number] Dis Date: Status: REG ER PHONE #: [phone] Exam Date: 04/05/2019 1740 FAX #: [phone] Reason: pain s/p [place] wall EXAMS: CPT CODE: [id number] XR WRIST 3 + V RT [id number] (Continued) Trnncrd Date/Time/By: 04/05/2019 (180) : By: [email or web address] PAGE [...] after 48 hours toconf irm . URINALYSIS [id number] 16:21:00 Test Item Value Reference Range Interpretation [...] /HPF 0-5 (RARE) = SQU) BASIC METABOLIC [id number] 16:20:00 Test Item Value Reference Range Interpretation [...] 8.9 mg/dL 8.4-10.2 N CA) CBC W/AUTO [id number] 16:11:00 Test Item Value Reference Range Interpretation [...] 0.02 x10 3/uL 0.0-0.1 N MR, BRAIN, [id number] 12:12:00Anesthesia:->NoneDeos the patient have an implanted electronic [...] anatomic etiology of seizure identified. Signed: Davon Turner MDReport Verified Date/Time: 02/25/2019 12:12:10 Reading Location: [facility] C0[facility] Consult Reading Room RAPID DRUG SCREEN, [id number] 15:26:00 Test Item Value Reference Range Interpretation [...] situations. Chain of custody not maintained. Some nvrz-dzx-umuymoh medications, as well as adulterants, may cause [...] m CALCULATE ESTIM ATED GFR. URINALYSIS W/ [id number] 14:29:00 Test Item Value Reference Range Interpretation [...] 2 /LPF 514) SOURCE(BEAKER) (test code = 0426) CBC W/PLT COUNT & AUTO [id number] 14:22:00 Test Item Value Reference Range Interpretation [...] (test code = 2801) CT, BRAIN, WITHOUT [id number] 14:15:00Reason for exam:->seizure activityReason for exam:->h/o pseudoseizuresWhat [...] MDReport Verified Date/Time: 02/24/2019 14:15:38 Reading Location: [facility] C013V Neuro Reading Room Elec tronically signed by: DAVON TURNER MD on 02/24/2019 02:15 PM
[2022-03-25] MEDS ORDERED: LEVETIRACETAM 500 MG/5 ML VIAL IV ONE (22:26)
[2022-03-25] MEDS ORDERED: NA CHLORIDE 0.9% 100 ML IV ONE (22:26)
[2022-03-25] MEDS ORDERED: NA CHLORIDE 0.9% 1,000 ML ONE (22:26)
[2022-03-25 22:27] LABS: Absolute Lymphocytes (CBC) 2.3 K/uL (0.7-4.9); Hematocrit 39.9 % (36.0-45.0); Lymphocytes % 25.8 % (15.3-44.8); MCV 74.3 fL (80-100); MPV 8.5 fL (7.6-11.3); RBC Red Blood Cell Count 5.37 M/uL (3.86-4.86)
--- NOTE | 2022-03-25 22:34 | RAD REPORT ---
EXAM DESCRIPTION: CT - Head Brain Wo Cont - 03/25/2022 10:23 pm CLINICAL HISTORY: Seizure disorder, no clinical change COMPARISON: Head Brain Wo Cont dated 12/08/2021 TECHNIQUE: Axial 5 mm thick images of the head were obtained without IV contrast. All CT scans are performed using dose optimization technique as appropriate and may include automated exposure control or mA/KV adjustment according to patient size. FINDINGS: No intracranial hemorrhage, mass, edema or shift of mid-line structures. No acute infarcti on changes seen. No abnormal extra-axial fluid collections. Ventricles are normal. Mastoid air cells and visualized portions of the paranasal sinuses are clear. No acute bony findings. IMPRESSION: Negative non-contrast CT head examination.
[2022-03-25 22:36] LABS: Protime INR 1.28
[2022-03-25 22:45] LABS: ALT/SGPT 18 U/L (13-56); AST/SGOT 19 U/L (15-37); Albumin 3.8 g/dL (3.4-5.0); Alkaline Phosphatase 80 U/L (45-117); BUN Blood Urea Nitrogen 8 mg/dL (7-18); Bicarbonate 28 mmol/L (21-32); Bilirubin Direct 0.1 mg/dL (0-0.2); Bilirubin Total 0.4 mg/dL (0.2-1.0); Glomerular Filtration Rate 96 ml/min (=/>90); Glucose Level 74 mg/dL (74-106); Potassium 3.6 mmol/L (3.5-5.1); Protein, Total 7.5 g/dL (6.4-8.2); Sodium Level 138 mmol/L (136-145)
[2022-03-25 23:02] LABS: Urine Blood Negative (Negative); Urine Glucose Negative (Negative); Urine Protein 1+ (Negative); Urine Specific Gravity >=1.030 (1.005-1.030); Urine pH 6.5 (5.0-7.0)
--- NOTE | 2022-03-25 23:11 | ER ---
Nurse's Notes [facility] Name: Jocy Claros Age: 22 yrs Sex: Female : 2000 Arrival Date: 03/25/2022 Time: 20:56 Bed 10 Private MD: Diagnosis: Epileptic seizures related to external causes, not intractable;Bipolar disorder, unspecified Presentation: 03/25 21:21 Chief complaint: Patient states: she has been having seizures the last couple of months bb she was diagnosed in the past but did not take medication for years but her psychiatrist put her on Keppra 250mg BID last month. Coronavirus screen: At this time, the client does not indicate any symptoms associated with coronavirus-19. Ebola Screen: No symptoms or risks identified at this time. Initial Sepsis Screen: Does the patient meet any 2 criteria? No. Patient's initial sepsis screen is negative. Does the patient have a suspected source of infection? No. Patient's initial sepsis screen is negative. Risk Assessment: Do you want to hurt yourself or someone else? Patient reports no desire to harm self or others. Onset of symptoms is unknown. 21:21 Method Of Arrival: Ambulatory bb 21:21 Acuity: FILEMON 5 bb Triage Assessment: 21:23 General: Appears in no apparent distress. Behavior is calm, cooperative. Pain: Denies bb pain. Neuro: Level of Consciousness is awake, alert, obeys commands, Oriented to person, place, time, situation. Cardiovascular: No deficits noted. Respiratory: Respiratory effort is even, unlabored. GI: No signs and/or symptoms were reported involving the gastrointestinal system. Derm: Skin is dry, Skin is normal, Skin temperature is warm. Musculoskeletal: Circulation, motion, and sensation intact. 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 - Social history:: Smoking status: Patient reports the use of cigarette tobacco products. - Family history:: not pertinent. Screenin:00 [facility] ED Fall Risk Assessment (Adult) History of falling in the last 3 months, vc1 including since admission No falls in past 3 months (0 pts) Confusion or Disorientation Yes (5 pts) Intoxicated or Sedated No (0 pts) Impaired Gait No (0 pts) Mobility Assist Device Used No (0 pt) Altered Elimination No (0 pt) Score/Fall Risk Level 3 or more points = High Risk Maintained a safe environment, Educated pt \T\ family on fall prevention, incl call for assistance when getting out of bed, Assessed \T\ reinforced patient's understanding of fall precautions. Abuse screen: Denies threats or abuse. 22:00 Nutritional screening: No deficits noted. Tuberculosis screening: No symptoms or risk vc1 factors identified. Assessment: 23:00 Reassessment: Patient and/or family updated on plan of care and expected duration. Pain vc1 level reassessed. Patient is alert, oriented x 3, equal unlabored respirations, skin warm/dry/pink. Patient states feeling better. Patient states symptoms have improved. Vital Signs: 21:21 BP 140 / 73; Pulse 62; Resp 16 S; Temp 99.4(O); Pulse Ox 100% on R/A; Weight 90.72 kg bb (R); Height 5 ft. 8 in. (172.72 cm) (R); 22:00 BP 129 / 80; Pulse 65; Pulse Ox 100% ; vc1 23:00 BP 118 / 78; Pulse 66; Pulse Ox 100% ; vc1 21:21 Body Mass Index 30.41 (90.72 kg, 172.72 cm) bb [place] Coma Score: 21:23 Eye Response: spontaneous(4). Verbal Response: oriented(5). Motor Response: obeys bb commands(6). Total: 15. ED Course: 20:56 Patient arrived in ED. ja2 21:23 Triage completed. bb 21:23 Arm band placed on Patient placed in waiting room, Patient notified of wait time. bb 21:44 Noel Cobos MD is Attending Physician. nico 21:54 Felipa Murray RN is Primary Nurse. vc1 22:00 Patient has correct armband on for positive identification. Bed in low position. Call vc1 light in reach. Pulse ox on. NIBP on. 22:10 Inserted saline lock: 22 gauge in left forearm, using aseptic technique. Blood mb4 collected. 22:10 Initial lab(s) drawn, by nj, sent to lab. mb4 22:25 CT Head Brain wo Cont In Process Unspecified. EDHI 23:11 Lam Chadwick MD is Referral Physician. [facility] 23:18 EKG done, by ED staff, reviewed by Noel Cobos MD. mb4 23:40 No provider procedures requiring assistance completed. IV discontinued, intact, vc1 bleeding controlled, No redness/swelling at site. Pressure dressing applied. Administered Medications: 22:36 Drug: NS 0.9% 1000 ml Route: IV; Rate: 1 bolus; Site: left forearm; vc1 23:41 Follow up: IV Status: Completed infusion; IV Intake: 1000ml vc1 22:36 Drug: Keppra (levETIRAcetam) 1000 mg Route: IV; Rate: per protocol; Site: left forearm; vc1 22:51 Follow up: IV Status: Completed infusion; IV Intake: 100ml vc1 Medication: 23:40 VIS not applicable for this client. vc1 Intake: 22:51 IV: 100ml; Total: 100ml. vc1 23:41 IV: 1000ml; Total: 1100ml. vc1 Outcome: 23:11 Discharge ordered by . nico 23:40 Discharged to home ambulatory. vc1 23:40 Condition: good 23:40 Discharge instructions given to patient, Instructed on discharge instructions, follow up and referral plans. medication usage, Demonstrated understanding of instructions, follow-up care, medications, Prescriptions given X 1. 23:41 Patient left the ED. vc1 Signatures: Dispatcher [employer] EDHI Noel Cobos MD MD cha Ballard, Brenda, RN RN Jennifer Cramer mb4 Janeth Campoverde Vanessa RN RN vc1
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
[2022-03-25 23:56] VITALS: TEMP 99.4; O2SAT 100
[2022-03-25 23:58] VITALS: BP 118/78
--- NOTE | 2022-03-27 08:34 | EKG ---
Test Date: 2022-03-25 Test Time: 23:15:55 Certified Neurodiagnostic Technologist: MB MEASUREMENT RESULTS: Intervals: Rate: 70 CT: 160 QRSD: 78 QT: 380 QTc: 410 [place]: P: 73 CT: 160 QRS: 78 T: 23 INTERPRETIVE STATEMENTS: Normal sinus rhythm Nonspecific T wave abnormality Abnormal ECG No previous ECG available for comparison Electronically Signed On 03-27-22 08:31:23 RISK OFFICER by Eric Caruso
== END 2022-03-25 23:41 | disposition home or self-care (01) ==
LOC: ER 20:50
DX: G40.509 Epileptic seizures related to external causes, not intractable, without status epilepticus (principal); F31.9 Bipolar disorder, unspecified; Z72.0 Tobacco use
CPT/HCPCS: 96361; 93005; 85025; 80048; 36415; 80320; 80329 ×2; 85610; 80076; 85730; 81003; 70450; 96374; 99284; J1953; J7030

== ENCOUNTER 2022-11-13 11:29 | Emergency (ER) | payer OTHER ==
--- OUTSIDE RECORDS SUMMARY | 2022-11-13 11:33 | XMS REPORT | Continuity of Care Document ---
:2000 Author Organization [facility] t Address [address] [facility] [address] [place] [address] Care Team Providers Name Role Phone Asked, No Pcp Primary Care Physician Unavailable ILANA SIMEON Attending Clinician Unavailable Ilana Simeon MD Attending Clinician TONI ALMARAZ Attending Clinician Unavailable TISH LONG Attending Clinician Unavailable KNOW, DOES_NOT Admitting Clinician Unavailable Payers Payer Name Policy Type Policy Number Effective Date Expiration Date [facility] [id number] 2017 00:00:00 [facility] - [id number] [place]MEDICAID REPLACEMENT - HMO) Problems Condition Condition Condition Status Onset Resolution Last Treating Co mments Source Name Details Category Date Date Treatment Clinician Date 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 5-25 ity of [place] [address] [place] [address] 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 00:00: [address] Eating Eating Disease Active Univers disorder disorder 5-25 ity of 00:00: [address] LOC (loss LOC (loss Disease Recurre 2018-[address] [facility]04 [facility] conscious[facility]: Me dical ess) ess) 00 Center Anxiety Anxiety Disease Active 2018-[address] [facility] 00[facility] Medical [facility] Center Seizure-li Seizure-li Disease Recurre 2018-[address] ke ke nce 2-03 [facility] activity activity 00:00: Medica l 00 Center Allergies, Adverse Reactions, Alerts Allergy Allergy Status Severity Reaction(s) Onset Inactive Treating Comm ents Source Name Type Date Date Clinician No Known DA Active U [facility] All[facility]ie 12-20 [facility] s 00:00: d 00 [facility] Center No Known DA Active U [facility] Allergie 12-20 [facility] 00:00: d 00 Medical Center NO KNOWN Drug Active Univers ALLERGIE Class ity of S [facility] Social History Social Habit Start Date Stop Date Quantity Comments Source Gender identity [facility] Sexual orientation [facility] SDOH [facility] Alcohol Std Drinks [facility] History SDOH [facility] Alcohol Binge Medical [place] [facility] History of tobacco Cigarette Smoker University of use [facility] Exposure to 2022-08-06 2022-08-16 Not sure [facility] SARS-CoV-2 (event) 00:00:00 15:09:00 [facility] Cigarette 2022-08-16 2022-08-16 University of pack-years 00:00:00 00:00:00 [facility] Tobacco use and 2022-08-16 2022-08-16 Smokeless Universit y of exposure 00:00:00 00:00:00 tobacco non-user [facility] Alcohol Comment 2019-05-20 2019-05-20 couple of times Meth odist 00:00:00 00:00:00 a month Hospital Cigarettes smoked 2019-05-20 2019-05-[address] current (pack per 00:00:00 00:00:00 Hospita l day) - Reported History of Social 2019-05-20 2019-05-[address] function 00:00:00 00:00:00 Hospital Alcohol intake 2019-02-24 2019-02-[address] [facility] 00:00:00 00:00:00 non-drinker of Medical Ce nter alcohol (finding) History SDOH 2019-02-24 2019-02-24 1 [facility] Alcohol Frequency 00:00:00 00:00:00 [facility] Sex Assigned At [birth year] Muslim 00:00:00 00:00:00 Hospital Smoking Status Start Date Stop Date Source Ex-smoker 2022-08-16 00:00:00 2022-08-16 00:00:00 [facility] [place] Smokes tobacco daily 2019-05-20 00:00:00 [facility] Light tobacco smoker 2019-02-24 00:00:00 [facility] Medications Ordered Filled Start Stop Current Ordering Indication Dosage Frequency Signature Comments Components Source Medication Medication Date Date Medication? Clinician (SIG) Name Name omeprazole Yes [id number] 40mg Take 1 Univers 40 mg 5-25 capsule by ity of capsule 00:00: mouth in [place] 00 the Medical morning. Branch omeprazole Yes [id number] 40mg Take 1 Univers 40 mg 5-25 capsule by ity of capsule 00:00: mouth in [place] the . Branch DECARA Yes [id number] Take 1 Univers 1,250 mcg 5-16 capsule by ity of (50,000 00:00: mouth [place] unit) 00 weekly. Medical capsule Branch DECARA Yes [id number] Take 1 Univers 1,250 mcg 5-16 capsule by ity of (50,000 00:00: mouth [place] unit) 00 weekly. Medical capsule Branch traZODone Yes 1 (EACH) Univ ers 50 mg 5-15 BEDTIME ity of tablet 00:00: ( [place] 00 NEEDED) Medical NEEDED FOR Branch SLEEP ARIPiprazol Yes 5mg Take 1 Univ ers e 5 mg 5-15 tablet by ity of tablet 00:00: mouth at [place] 00 bedtime. Medical Branch traZODone Yes 1 (EACH) Univ ers 50 mg 5-15 BEDTIME ity of tablet 00:00: ( [place] 00 NEEDED) Medical NEEDED FOR Branch SLEEP ARIPiprazol Yes 5mg Take 1 Univ ers e 5 mg 5-15 tablet by ity of tablet 00:00: mouth at [place] 00 bedtime. Medical Branch risperiDONE 2022- No 2 (EACH) U nivers 0.5 mg 4-24 05-25 BEDTIME ity of tablet 00:00: 00:00 [place]KE [place] 00 :00 NIGHT FOR Medical 7 NIGHTS, Branch IF NO SIDE EFFECTS INCREASE TO 2 TABS. risperiDONE 2022- No 2 (EACH) U nivers 0.5 mg 4-24 05-25 BEDTIME ity of tablet 00:00: 00:00 [place]KE EVERY [place] 00 :00 NIGHT FOR Medical 7 NIGHTS, Branch IF NO SIDE EFFECTS INCREASE TO 2 TABS. testosteron Yes INJECT Univ ers e cypionate 4-14 0.25 ML ity o f 200 mg/mL 00:00: [place]AM[place]CU [place] injection 00 LARLY ONCE Medi gulshan WEEKLY Branch testosteron Yes INJECT Univ ers e cypionate 4-14 0.25 ML ity o f 200 mg/mL 00:00: [place]AM[place]CU [place] injection 00 LARLY ONCE Medi gulshan WEEKLY Branch levETIRAcet 2020-0 Yes 500mg Q.5D Take 500 [...] (two) l times a day with meals. Vital Signs Vital Name Observation Time Observation Value Comments Source Systolic blood 2022-08-16 20:14:00 118 mm[Hg] Univer sity of pressure [facility] Diastolic blood 2022-08-16 20:14:00 70 mm[Hg] Unive rsity of [facility] Heart rate 2022-08-16 20:14:00 76 /min General acute hospital Body temperature 2022-08-16 20:14:00 36.67 Trista [facility] Respiratory rate 2022-08-16 20:14:00 18 /min [facility] Body height 2022-08-16 20:14:00 172.7 cm General acute hospital Body weight 2022-08-16 20:14:00 86.773 kg General acute hospital BMI 2022-08-16 20:14:00 29.09 kg/m2 General acute hospital Oxygen saturation in 2022-08-16 20:14:00 99 /min [facility] Arterial blood by [facility] Pulse oximetry Branch Procedures This patient has no known procedures. [...] Test 00:00:00 (procedure) [code = Medical Center 59835171] Future Scheduled 2020-01-29 DTAP/TDAP/TD VACCINES CH I [...] Facility Department ID 2019-04-05 Inpatient HCAKW KARINA [id number] [facility] 15:40:00 82 [facility] 2022-10-11 2022-10-11 Outpatient R [facility] [id number] Univers 10:20:00 10:20:00 , ILANA it [facility] 2022-08-16 2022-08-16 Office [facility] [id number] Univers 15:40:00 15:53:34 Visit , Ilana [facility] [id number] ity Vince RAMÍREZ [id number] Malcolm as NANO?BLEA [id number] Ny t[address] MEDICAL OFFICE BUILDING 2022-08-16 2022-08-16 Outpatient R [facility] [id number] Univers 15:40:00 15:53:34 , ILANA [facility] 2021-06-05 2021-06-05 Outpatient PRIV PRIV [id number] [id number] [facility] 12:38:00 12:38:00 [id number] Medica l 2021-06-03 2021-06-03 Outpatient PRIV PRIV [id number] [id number] [facility] 06:48:00 06:48:00 [id number] Medica l 2021-05-27 2021-05-27 Outpatient PRIV PRIV [id number] [id number] [facility] 07:06:00 07:06:00 [id number] Medica l 2021-05-27 2021-05-27 Outpatient PRIV PRIV [id number] 4-2 [facility] 07:06:00 07:06:00 [id number] Medica l 2019-05-20 2019-05-20 Emergency [facility] [id number] 9986 [place] 00:00:00 00:00:[address] [place] [address] Results Test Description Test Time Test Comments Results Result Sour e Comments - XR HAND 3 + V RT 2019-04-05 [facility]: St: 18:07:00 REG Name: ALLI GUIDO : 2000 Age/S: 19/F [address] Unit #: [id number] Loc: [place] [address] Phys: Alfredo Jasso MD Acct: [id number] Dis Date: Status: [facility] PHONE #: [phone] Exam Date: 04/05/2019 1740 FAX #: [phone] Reason: puncehd wall EXAMS: CPT CODE: [id number] XR HAND 3 + V RT 76624 EXAM: Right wrist 3 views Location code: [...] the hand. PAGE 1 Signed Report (CONTINUED) [facility]: [facility]: REG Name: ALLI GUIDO : 2000 Age/S: 19/F [address] Unit #: [id number] Loc: [place] [address] Phys: Alfredo Jasso MD Acct: [id number] Dis Date: Status: [facility] PHONE #: [phone] Exam Date: 04/05/20191739 FAX #: [phone] Reason: puncehd wall EXAMS: CPT CODE: [id number] XR HAND 3 + V RT 05543 (Continued) IMPRESSION: Right hand 1. No acute osseous abnormality. 2. Soft tissue swelling along the dorsum of the hand. at 1807 Reported and signed by: Matthieu Salmeron MD CC: Technologist: Yisel Lin; CEASAR CONNELLY PAGE 2 Signed Report [facility]: [facility]: REG Name: ALLI GUIDO [facility] : 2000 Age/S: 19/F [address] Unit #: [id number] Loc: [place] [address] Phys: Alfredo Jasso MD Acct: [id number] Dis Date: Status: [facility] PHONE #: [phone] Exam Date: 04/05/20191739 FAX #: [phone] Reason: critical access hospital wall EXAMS: CPT CODE: [id number] XR HAND 3 + V RT 59123 (Continued) [facility] Date/Time/By: 04/05/2019 (1806) : By: [email or web address] PAGE 3 Signed Report - XR WRIST 3 + V 2019-04-05 [facility]: St: RT 18:07:00 REG Name: ALLI GUIDO [facility] : 2000 Age/S: 19/F [address] Unit #: [id number] Loc: [place] [address] Phys: Alfredo Jasso MD Acct: [id number] Dis Date: Status: REG ER PHONE #: [phone] Exam Date: 04/05/2019 1740 FAX #: [phone] Reason: pain s/p punchthroug wall EXAMS: CPT CODE: [id number] XR WRIST 3 + V RT 17936 EXAM: Right wrist 3 views Location code: [...] the hand. PAGE 1 Signed Report (CONTINUED) [facility]: St: REG Name: ALLI GUIDO [facility] : 2000 Age/S: 19/F [address] [facility] [address] Unit #: [id number] Loc: [place] [address] Phys: Alfredo Jasso MD Acct: [id number] Dis Date: Status: [facility] PHONE #: [phone] Exam Date: 04/05/2019 1740 FAX #: [phone] Reason: pain s/p punch[place] wall EXAMS: CPT CODE: [id number] XR WRIST 3 + V RT 60100 (Continued) IMPRESSION: Right hand 1. No acute osseous abnormality. 2. Soft tissue swelling along the dorsum of the hand. at 1807 Reported and signed by: Matthieu Salmeron MD CC: Technologist: Yisel Lin; CEASAR CONNELLY PAGE 2 Signed Report [facility]: St: REG Name: ALLI GUIDO [facility] : 2000 Age/S: 19/F [address] Unit #: [id number] Loc: [place] [address] Phys: Alfredo Jasso MD Acct: [id number] Dis Date: Status: REG ER PHONE #: [phone] Exam Date: 04/05/2019 1740 FAX #: [phone] Reason: pain s/p punchthr[place] wall EXAMS: CPT CODE: [id number] XR WRIST 3 + V RT 19503 (Continued) Trnscrd Date/Time/By: 04/05/2019 (1806) : By: [email or web address] PAGE 3 Signed Report HCG POC 2019-04-05 [...] after 48 hours toconf irm . URINALYSIS [id number] 16:21:00 Test Item Value Reference Range Interpretation [...] /HPF 0-5 (RARE) = SQU) BASIC METABOLIC [id number] 16:20:00 Test Item Value Reference Range Interpretation [...] 8.9 mg/dL 8.4-10.2 N CA) CBC W/AUTO [id number] 16:11:00 Test Item Value Reference Range Interpretation [...] 0.02 x10 3/uL 0.0-0.1 N MR, BRAIN, [id number] 12:12:00Anesthesia:->NoneDeos the patient have an implanted electronic [...] MDReport Verified Date/Time: 02/25/2019 12:12:10 Reading Location: [address] Consult Reading Room RAPID DRUG SCREEN, [id number] 15:26:00 Test Item Value Reference Range Interpretation [...] situations. Chain of custody not maintained. Some qjnx-rmi-lkhkism medications, as well as adulterants, may cause [...] m CALCULATE ESTIM ATED GFR. URINALYSIS W/ [id number] 14:29:00 Test Item Value Reference Range Interpretation [...] 2 /LPF 514) SOURCE(BEAKER) (test code = 2795) CBC W/PLT COUNT & AUTO [id number] 14:22:00 Test Item Value Reference Range Interpretation [...] (test code = 2801) CT, BRAIN, WITHOUT [id number] 14:15:00Reason for exam:->seizure activityReason for exam:->h/o pseudoseizuresWhat [...] MDReport Verified Date/Time: 02/24/2019 14:15:38 Reading Location: [facility] B1 C013V Neuro Reading Room Elec tronically signed by: DAVON TURNER MD on 02/24/2019 02:15 PM Notes Date/Time Note Provider Source 2019-04-05 15:47:00-00:00 [facility] EMERGENCY PROVIDER REPORT REPORT#:[id number] REPORT STATUS: Signed DATE:04/05/19 TIME: 1546 PATIENT: ALLI GUIDO UNIT #: [id number] ROOM/BED: AGE: 19 SEX: F PCP PHYS: No Primary or Family P hysician SERVICE AUTHOR: Alfredo Jasso MD * ALL edits or amendments must be made on the [facility]/computer document * HPI-Seizure General Confirmed Patient Yes Patient Type New patient Initial Greet Date/Time 04/05/19 154 Presentation Chief Complaint Seizure, generalized Seizure Anatomic Location Generalized Hx Obtained From Patient Onset Occurred Today Symptom Duration Brief Progression since Onset Intermittent Quality Painful Severity: Onset Moderate Associated with Reports: Headache. Denies: Bladder incontinence, Bleeding from mouth, Nausea, Shortness of breath, Vomiting. Exacerbated by Nothing Relieved by Nothing Free Text HPI Notes Free Text HPI Notes 19 y/o female with pmhx of Epilepsy presents to ED due to multiple seizures onset today. Pt notes associated [place]. Paramedics reports the pt had 7 seizures today and they were going take her this morning but she refused to come in by EMS. Paramedics also reports that the pt's father told the pt to stop messing up or he will put "a thumb up her but". Pt denies a ny urinary incontinence. Pt states she does not remember having the seizures . Portions of this section were scribed by Louis Hernandez on 04/05/19 at 1705 Review of Systems ROS Statements All systems rev neg except as marked. Focused Review of Systems Constitutional Denies: Chills, Fever. Eyes Denies: Photophobia, Redness bilat. Ears/Nose/Throat Denies: Nasal congestion, Sinus problem. Respiratory Denies: Cough, non-productive, Cough, productive , Shortness of breath. Cardiovascular Denies: Chest pain, Edema. Musculoskeletal Denies: Back pain, Neck pain. Skin Denies: Rash, Swelling. Neurologic Reports: Headache. Denies: Generalized weakness, Lightheaded. Additional Review of Systems GI Denies: Abdominal pain, Nausea, Vomiting. Female Denies: Urinary frequency, Urinary urgency. Portions of this section were scribed by Louis Hernandez on 04/05/19 at 1638 Past Medical History - Adult Stated Complaint SEIZURE Allergies Coded Allergies: No Known Allergies (12/21/15) Home Medications Reported Medications No Known Home Medications Review of Nursing Notes Rev avail, and agree Past Medical History: Reports: Seizure disorder (Epilepsy). Additional Medical History bipolar, depression Additional Surgical History denies Drug Use Marijuana Smoking status for patients 13 years old or olde r: Current some day smoker Other Social History Local resident Ambulatory Status Independent Portions of this section were scribed by Louis Hernandez on 04/05/19 at 1638 Physical Exam Vital Signs Vital Signs First Documented: Result Date Time Pulse Ox 100 04/05 1542 B/P 137/66 04/05 1542 B/P Mean 89 04/05 1542 O2 Delivery Room air 04/05 1542 Temp 36.9 04/05 1542 Pulse 85 04/05 1542 Resp 14 04/05 1542 Last Documented: Result Date Time Pulse Ox 100 04/05 1542 B/P 137/66 04/05 1542 B/P Mean 89 04/05 1542 O2 Delivery Room air 04/05 1542 Temp 36.9 04/05 1542 Pulse 85 04/05 1542 Resp 14 04/05 1542 Review of Vital Signs Reviewed Focused PE General/Const General/Const Awake, Alert, No acute distress, Cooperative MS Head Head Atraumatic, Normocephalic Eyes Eyes PERRL, EOMI, No nystagmus, Conjunctiva NL, Eyelids NL Ears/Nose/Throat Ears/Nose/Throat Atraumatic, Airway patent, Muc ous membranes moist, No sinus tenderness, No facial swelling MS Neck Neck Supple, No meningismus, Full range of patria on, No adenopathy Resp/Chest Respiratory/Chest Breath sounds NL, Breath soun ds = bilat, No respiratory distress, No rales, No rhonchi, No wheezing, No retractions Cardiovascular Cardiovascular Heart rate NL, Regular rhythm, H eart sounds NL, No gallop, No murmurs, No rubs Abdomen/GI Abdomen/GI Soft, Non-tender, McBurney's non-ten andrea, No guarding, No rebound, No distention Skin Skin Color NL, No rash, Warm, Dry, Intact Neurologic Neurologic Oriented X3, Speech NL, No m otor deficits, No sensory deficits, CN II - XII intact Portions of this section were scribed by Louis Hernandez on 04/05/19 at 1705 Interpretation Diagnostics Lab Results Interpretation Results Laboratory Tests 04/05/19 1555: [Embedded Image Not Available] Laboratory Tests: 04/05 04/05 1618 1555 Chemistry Sodium (137 - 145 mmol/L) 136 L Potassium (3.4 - 5.0 mmol/L) 5.1 H Chloride (98 - 107 mmol/L) 104 Carbon Dioxide (22 - 30 mmol/L) 27 BUN (7 - 17 mg/dL) 12 Creatinine (0.5 - 1.0 mg/dL) 0.7 Glomerular Filtr Rate (>60) 140 Glucose (74 - 106 mg/dL) 89 Calcium (8.4 - 10.2 mg/dL) 8.9 Beta HCG, Quant (0 - 4.9 IU/L) <5.0 Hematology WBC (5.0 - 12.0 x10 3/uL) 5.9 RBC (4.20 - 5.40 x10 6/uL) 4.52 Hgb (12.0 - 16.0 g/dL) 11.3 L Hct (36.0 - 46.0 %) 33.3 L MCV (81 - 99 fL) 74 L MCH (27 - 31 pg) 25.0 L MCHC (33 - 37 g/dL) 33.9 RDW (11.5 - 15.5 %) 15.5 Plt Count (130 - 400 x10 3/uL) 357 MPV (9.4 - 16.4 fL) 10.3 Neut % (Auto) (43 - 65 %) 65.7 H Lymph % (Auto) (20.5 - 45.5 %) 24.2 Iron % (Auto) (5.5 - 11.7 %) 8.0 Eos % (Auto) (0.9 - 2.9 %) 1.5 Baso % (Auto) (0.2 - 1.0 %) 0.3 Neut # (Auto) (2.2 - 4.8 x10 3/uL) 3.87 Lymph # (Auto) (1.3 - 2.9 x10 3/uL) 1.43 Iron # (Auto) (0.3 - 0.8 x10 3/uL) 0.47 Eos # (Auto) (0.0 - 0.2 x10 3/uL) 0.09 Baso # (Auto) (0.0 - 0.1 x10 3/uL) 0.02 Immature Gran % (0.0 - 2.0 %) 0.3 Nucleated RBC % (0 - 1.0 %) 0.0 Urines Urine Color (Yellow) Straw Urine Appearance (Clear) Clear Urine pH (5.0 - 8.0) 7.0 Ur Specific [place] (<1.030) 1.002 Urine Protein (Negative mg/dL) NEGATIVE Urine Glucose (UA) (Negative) Negative Urine Ketones (Negative mg/dL) Negative Urine Blood (Negative) Negative Urine Nitrite (Negative) Negative Urine Bilirubin (Negative) Negative Urine Urobilinogen (Negative mg/dL) Negative Ur Leukocyte Esterase (Negative) NEGATIVE Urine RBC (<4 - 5 /HPF) 0-3 Urine WBC (<4 - 5 /HPF) 0-3 Ur Squamous Epith Cells (0 - 5 (RARE) /HPF) 0-5 (RARE) Urine Bacteria (None - Rare /HPF) Rare Recent Impressions: RADIOLOGY - XR HAND 3 + V RT 04/05 1025 Report Impression - Status: SIGNED Entered: 04/05/2019 1810 IMPRESSION: Right wrist No acute osseous abnormality. EXAM: Right hand 3 views Location code: A1 HISTORY: punched wall COMPARISON: None available FINDINGS: There is no acute fracture or dislocation. There is normal mineralization of the osseous st ructures. Joint spaces are maintained. There is mild soft tissue swelling along the raquel sum of the hand. IMPRESSION: Right hand 1. No acute osseous abnormality. 2. Soft tissue swelling along the dorsum of the hand. Impression By: Matthieu Carrillo MD RADIOLOGY - XR WRIST 3 + V RT 04/05 1735 Report Impression - Status: SIGNED Entered: 04/05/2019 1810 IMPRESSION: Right wrist No acute osseous abnormality. EXAM: Right hand 3 views Location code: A1 HISTORY: punched wall COMPARISON: None available FINDINGS: There is no acute fracture or dislocation. There is normal mineralization of the osseous st ructures. Joint spaces are maintained. There is mild soft tissue swelling along the raquel sum of the hand. IMPRESSION: Right hand 1. No acute osseous abnormality. 2. Soft tissue swelling along the dorsum of the hand. Impression By: Matthieu Carrillo MD Lab Statement Laboratory studies reviewed and considered in e medical decision-making. Point of Care Testing Pulse Oximetry Pulse Ox % 100 On: Room air Interpretation Interpreted by me, Pulse oximetr y normal Time 1542 ECG #1 Interpretation Text/Dict Note T-wave inversion in V3 ECG Documented in MUSE Yes Date 04/05/19 Time 1610 Interpreted by ED physician NL ECG Interpretation Normal sinus rhythm, No ST ABIMAEL, Normal intervals Rate 71 Portions of this section were scribed by Louis Hernandez on 04/05/19 at 1705 Re-Evaluation MDM Re-Evaluation/Progress #1 Text/Dict Note I asked repeatedly about how she felt at home du e to the thumb in the but comment. Pt stated that her dad was just joking. Due to pt being 19, sound of mind, and able to maker her own decisions I have to take this at face value. EMS were concerned and will file a police report. I will refill kepra prescription. Time of Re-Eval 1631 ED Course Medication(s) Ordered Medication(s) Ordered: Central Nervous System Agents Sig/Jarett Start time Last Medication Dose Route Stop Time Status Admin Acetaminophen 650 MG X1ED STA 04/05 1635 DC PO 04/05 1636 Levetiracetam 1,000 MG X1ED STA 04/05 1632 DC 0 04/05 Sodium Chloride 90 ML IV 04/05 1646 1702 Electrolytic, Caloric, And Reid Sig/Jarett Start time Last Medication Dose Route Stop Time Status Admin Sodium Chloride 1,000 ML X1ED STA 04/05 1549 DC 04/05 IV 04/05 1550 1614 Portions of this section were scribed by Louis Hernandez on 04/05/19 at 1652 Patient Discharge Departure Vital Signs/Condition Vital Signs First Documented: Result Date Time Pulse Ox 100 04/05 1542 B/P 137/66 04/05 1542 B/P Mean 89 04/05 1542 O2 Delivery Room air 04/05 1542 Temp 36.9 04/05 1542 Pulse 85 04/05 1542 Resp 14 04/05 1542 Last Documented: Result Date Time Pulse Ox 100 04/05 1542 B/P 137/66 04/05 1542 B/P Mean 89 04/05 1542 O2 Delivery Room air 04/05 1542 Temp 36.9 04/05 1542 Pulse 85 04/05 1542 Resp 14 04/05 1542 All vital signs available at the time of this en try have been reviewed. Condition Stable Clinical Impression Clinical Impression Primary Impression: Seizure-like activity Disposition Decision Discharge )( Discharged to Home Yes )( Time 1633 )( Date 04/05/19 Discharge/Care Plan Counseled Regarding Diagnosis, Lab resul ts, Need for follow-up, When to return to ED Discharge Note I have spoken with the patie nt and/or caregivers. I have explained the patient's condition, diagnoses and sydni atment plan based on the information available to me at this time. I have answered the patient's and/ or caregiver's questions and addressed any concerns. The patient and/or careg vick have as good an understanding of the patient 's diagnosis, condition and treatment plan as can be expected at this point. The vital signs have bee n stable. The patient's condition is stable and appr opriate for discharge from the emergency department. The patient will pursue further outpatient evalu ation with the primary care physician or other designated or consulting phys ician as outlined in the discharge instructions. The patient and/or caregivers are agreeable to this plan of care and follow-up instructions have been exp lained in detail. The patient and/or caregivers have received these instructio ns in written format and have expressed an understanding of the discharge inst ructions. The patient and/or caregivers are aware that any significant change in condition or worsening of symptoms should prompt an immediate return to mather hospital or the closest emergency department or a call to 911. Supervising Physician Note Scribe Statement Louis Hernandez, 04/05/19 1547 , scribing for and in the presence of [Dr. Jasso]. Signed By: Louis Hernandez, 04/05/19 1547 Provider Scribed Statement I personally performed the s ervices described in this documentation and reviewed the documentation that was dictated to the scrib e(s) in my presence, and it accurately records my words and actions. Alfredo Jasso, 04/09/19 Portions of this section were scribed by Louis Hernandez on 04/05/19 at 1705 Electronically Signed by Alfredo Jasso MD on at 2100 RPT #:[id number] END OF REPORT
[2022-11-13 12:09] LABS: Specific Gravity 1.023 (1.005-1.030)
[2022-11-13 12:10] LABS: Specific Gravity 1.023 (1.005-1.030); Urine Bacteria <20 /HPF (<20); Urine Bilirubin NEGATIVE (Negative); Urine Blood Negative (Negative); Urine Clarity Turbid (Clear); Urine Color Light-Yellow (Yellow); Urine Glucose NEGATIVE (Negative); Urine Mucus Slight /HPF (None Seen); Urine Protein TRACE (Negative); Urine RBC <5 /HPF (None Seen); Urine Urobilinogen Normal (Normal); Urine pH 7.5 (5.0-7.0)
--- NOTE | 2022-11-13 12:49 | EDPHYS ---
Physician Documentation [facility] Name: Jocy Claros Age: 22 yrs Sex: Female : 2000 Arrival Date: 11/13/2022 Time: 11:29 Bed 9 Private MD: ED Physician Froilan Leblanc HPI: 11/13 11:44 This 22 yrs old Black Female presents to ER via Ambulatory with complaints of ms3 Lactating, Nausea. 11:44 22-year-old female with past medical history of anxiety, bipolar, epilepsy presents for ms3 nausea and . Patient is unsure how long she has had medicating as she just noticed it yesterday. Patient denies headache or vision changes. Patient states she may be . Patient states her last menstrual period was September 2022. Patient denies alleviating or inciting factors.. 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 - Social history:: Smoking status: Patient reports the use of cigarette tobacco products, 5 cigarettes a day . ROS: 11:44 Constitutional: Negative for fever, and chills. Cardiovascular: Negative for chest ms3 pain, and palpitations. Respiratory: Negative for shortness of breath, cough, wheezing, and pleuritic chest pain. 11:44 Skin: Negative for injury, rash, and discoloration. 11:44 Abdomen/GI: Positive for nausea. 11:44 Abdomen/GI: Positive for abdominal pain. 11:44 All other systems are negative. Exam: 11:44 Constitutional: This is a well developed, well nourished patient who is awake, alert, ms3 and in no acute distress. Head/Face: Normocephalic, atraumatic. Neck: Trachea midline, no cervical lymphadenopathy. Supple, full range of motion without nuchal rigidity, or vertebral point tenderness. No Meningismus. Chest/axilla: Normal chest wall appearance and motion. Nontender with no deformity. Cardiovascular: Regular rate and rhythm with a normal S1 and S2. No gallops, murmurs, or rubs. Normal PMI, no JVD. No pulse deficits. Respiratory: Lungs have equal breath sounds bilaterally, clear to auscultation and percussion. No rales, rhonchi or wheezes noted. No increased work of breathing, no retractions or nasal flaring. Abdomen/GI: Soft, non-tender, with normal bowel sounds. No distension or tympany. No guarding or rebound. No evidence of tenderness throughout. Skin: Warm, dry with normal turgor. Normal color with no rashes, no lesions, and no evidence of cellulitis. MS/ Extremity: Pulses equal, no cyanosis. Neurovascular intact. Full, normal range of motion. Vital Signs: 11:35 BP 117 / 91; Pulse 91; Resp 18 S; Temp 97.7(TE); Pulse Ox 97% on R/A; Weight 88.45 kg aa5 (R); Height 5 ft. 8 in. (R); 12:56 BP 97 / 55; Pulse 72; Resp 17; Pulse Ox 97% ; aa5 11:35 Body Mass Index 29.65 (88.45 kg, 172.72 cm) aa5 MDM: 11:41 Patient medically screened. ms3 11:44 Differential Diagnosis vs UTI vs Prolactinoma. ms3 12:48 Data reviewed: vital signs, nurses notes, lab test result(s), and as a result, I will ms3 discharge patient. Counseling: I had a detailed discussion with the patient and/or guardian regarding the historical points, exam findings, and any diagnostic results supporting the discharge/admit diagnosis, lab results, the need for outpatient follow up, to return to the emergency department if symptoms worsen or persist or if there are any questions or concerns that arise at home. Special discussion: I discussed with the patient/guardian in detail that at this point there is no indication for admission to the hospital. It is understood, however, that if the symptoms persist or worsen the patient needs to return immediately for re-evaluation. ED course: Discussed labs with patient. possibly secondary to patient's use of respite all which can increase prolactin levels. Patient to follow-up with Dr. Casiano in 2 to 3 days. Patient understands and agrees with plan. All questions were answered. Return precautions discussed include worsening symptoms, or any other concerns.. 11/13 11:42 Order name: Test, Urine; Complete Time: 12:41 ms3 11/13 11:47 Order name: Urinalysis W/Microscopic; Complete Time: 12:41 ms3 Administered Medications: No medications were administered Disposition Summary: 11/13/22 12:48 Discharge Ordered Location: Home ms3 Condition: Stable ms3 Diagnosis - Unspecified disorders of ms3 - Proteinuria, unspecified ms3 Followup: ms3 - With: Rolly Casiano MD - When: 2 - 3 days - Reason: Recheck today's complaints Discharge Instructions: - Discharge Summary Sheet ms3 - Proteinuria ms3 Forms: - Medication Reconciliation Form ms3 - Thank You Letter ms3 - Antibiotic Education ms3 - Prescription Opioid Use ms3 - Patient Portal Instructions ms3 - Leadership Thank You Letter ms3 Signatures: Dispatcher [employer] Nneka Drew, RN RN aa5 Froilan Leblanc DO DO ms3
--- NOTE | 2022-11-13 12:49 | ER ---
Nurse's Notes [facility] Name: Jocy Claros Age: 22 yrs Sex: Female : 2000 Arrival Date: 11/13/2022 Time: 11:29 Bed 9 Private MD: Diagnosis: Unspecified disorders of ;Proteinuria, unspecified Presentation: 11/13 11:35 Chief complaint: Patient states: abd pain that began yesterday. Pt states "I am also aa5 having some ". Pt also reports nausea and breast tenderness. 11:35 Method Of Arrival: Ambulatory aa5 11:35 Coronavirus screen: At this time, the client does not indicate any symptoms associated aa5 with coronavirus-19. Ebola Screen: Patient denies travel to an Ebola-affected area in the 21 days before illness onset. Initial Sepsis Screen: Does the patient meet any 2 criteria? No. Patient's initial sepsis screen is negative. Does the patient have a suspected source of infection? No. Patient's initial sepsis screen is negative. Risk Assessment: Do you want to hurt yourself or someone else? Patient reports no desire to harm self or others. Onset of symptoms was 2022. 11:35 Acuity: FILEMON 3 aa5 Triage Assessment: 12:57 General: Appears in no apparent distress. Behavior is calm, cooperative, appropriate aa5 for age. Pain: Denies pain. 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 - Social history:: Smoking status: Patient reports the use of cigarette tobacco products, 5 cigarettes a day . Screenin:56 [facility] ED Fall Risk Assessment (Adult) Score/Fall Risk Level 0 - 2 = Low Risk aa5 Oriented to surroundings, Maintained a safe environment, Educated pt \\T\\ family on fall prevention, incl call for assistance when getting out of bed, Hourly rounding (assess needs \\T\\ fall precautionary measures) done. Abuse screen: Denies threats or abuse. Nutritional screening: No deficits noted. Tuberculosis screening: No symptoms or risk factors identified. Assessment: 12:56 Reassessment: No changes from previously documented assessment. Patient and/or family aa5 updated on plan of care and expected duration. Pain level reassessed. Patient is alert, oriented x 3, equal unlabored respirations, skin warm/dry/pink. 12:57 GI: Bowel sounds present X 4 quads. Abd is soft and non tender X 4 quads. aa5 Vital Signs: 11:35 BP 117 / 91; Pulse 91; Resp 18 S; Temp 97.7(TE); Pulse Ox 97% on R/A; Weight 88.45 kg aa5 (R); Height 5 ft. 8 in. (R); 12:56 BP 97 / 55; Pulse 72; Resp 17; Pulse Ox 97% ; aa5 11:35 Body Mass Index 29.65 (88.45 kg, 172.72 cm) aa5 ED Course: 11:30 Patient arrived in ED. rg4 11:31 Froilan Leblanc DO is Attending Physician. ms3 11:35 Arm band placed on. aa5 11:37 Triage completed. aa5 12:03 Urinalysis W/Microscopic Sent. aa5 12:03 Test, Urine Sent. aa5 12:34 rBea Beckett, RN is Primary Nurse. tf2 12:47 Rolly Casiano MD is Referral Physician. ms3 12:57 No provider procedures requiring assistance completed. Patient did not have IV access aa5 during this emergency room visit. 12:58 Patient has correct armband on for positive identification. Bed in low position. aa5 Provided Education on: n/a. Administered Medications: No medications were administered Medication: 12:58 VIS not applicable for this client. aa5 Outcome: 12:48 Discharge ordered by . ms3 12:57 Discharged to home ambulatory. aa5 12:57 Condition: stable 12:57 Discharge instructions given to patient, Instructed on discharge instructions, follow up and referral plans. Demonstrated understanding of instructions, follow-up care. 12:58 Patient left the ED. aa5 Signatures: Nneka Alex, NICOLE RN aa5 Judy Sadler rg4 Froilan Leblanc DO DO ms3 Brea Beckett, NICOLE RN tf2 Corrections: (The following items were deleted from the chart) 11:37 11:35 Chief complaint: Patient states: abd pain that began yesterday. Pt states "I am aa5 also having some ". aa5
[2022-11-13 13:05] VITALS: TEMP 97.7; O2SAT 97
[2022-11-13 13:07] VITALS: BP 97/55
== END 2022-11-13 12:58 | disposition home or self-care (01) ==
LOC: ER 11:29
DX: R80.9 Proteinuria, unspecified (principal); O92.70 Unspecified disorders of lactation; F17.210 Nicotine dependence, cigarettes, uncomplicated; F31.9 Bipolar disorder, unspecified
CPT/HCPCS: 81001; 81025; 99283

== ENCOUNTER 2022-12-11 13:19 | Emergency (ER) | payer OTHER ==
--- OUTSIDE RECORDS SUMMARY | 2022-12-11 13:33 | XMS REPORT | Continuity of Care Document ---
:2000 Author Organization [facility] t Address [address] [place] [address] Care Team Providers Name Role Phone Asked, No Pcp Primary Care Physician Unavailable ILANA HAWKINS Attending Clinician Unavailable Ilana Hawkins MD Attending Clinician [phone] TONI ALMARAZ Attending Clinician Unavailable TISH LONG Attending Clinician Unavailable KNOW, DOES_NOT Admitting Clinician Unavailable Payers Payer Name Policy Type Policy Number Effective Date Expiration Date Reanna alvarez [facility] [id number] 2017 00:00:00 [facility] - [id number] [place] (MEDICA[place] REPLACEMENT - HMO) Problems Condition Condition Condition Status Onset Resolution Last Treating Co mments Source Name Details Category Date Date Treatment Clinician Date 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 5-25 [place] [place] [facility] [place] [address] [place] [address] 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 00:00: [address] Eating Eating Disease Active Univers disorder disorder 5-25 ity of 00:00: [address] LOC (loss LOC (loss Disease Recurre 2018-[address] [facility] conscious[facility] consciousn [facility]: Me dical ess) ess) 00 Center Anxiety Anxiety Disease Active 2018-[address] [facility] 00[facility] Medical 00 Center Seizure-li Seizure-li Disease Recurre 2018-[address] ke ke fle 2-03 [facility] activity activity 00:00: Medica l 00 Center Allergies, Adverse Reactions, Alerts Allergy Allergy Status Severity Reaction(s) Onset Inactive Treating Comm ents Source Name Type Date Date Clinician No Known DA Active [facility] [place] [facility] No Known DA Active U [facility] 12[facility]20 [place] [facility]:[place] NO KNOWN Drug Active Univers ALLERGIE Class ity of [facility] Social History Social Habit Start Date Stop Date Quantity Comments Source Gender identity [facility] Sexual orientation [facility] History [facility] Alcohol Std Drinks Medica l Center History [facility] Alcohol Binge Medical [address] [facility] History of tobacco Cigarette Smoker University of use [facility] Exposure to 2022-08-06 2022-08-16 Not sure [facility] SARS-CoV-2 (event) 00:00:00 15:09:00 [facility] Cigarette 2022-08-16 2022-08-16 University of pack-years 00:00:00 00:00:00 [facility] Tobacco use and 2022-08-16 2022-08-16 Smokeless Universit y of exposure 00:00:00 00:00:00 tobacco non-user [facility] Alcohol Comment 2019-05-20 2019-05-20 couple of [...] [facility] Alcohol Frequency 00:00:00 00:00:00 [facility] Sex Assigned At [birth year] Jew 00:00:00 00:00:00 Hospital Smoking Status Start Date Stop Date Source Ex-smoker 2022-08-16 00:00:00 2022-08-16 00:00:00 [facility] Branch Smokes tobacco daily 2019-05-20 00:00:00 [facility] Light tobacco smoker 2019-02-24 00:00:00 [facility] Medications Ordered Filled Start Stop Current Ordering Indication Dosage Frequency Signature Comments Components Source Medication Medication Date Date Medication? Clinician (SIG) Name Name omeprazole Yes [id number] 40mg Take 1 Univers 40 mg 5-25 capsule by ity of capsule 00:00: mouth in [place] 00 the Medical morning. Branch omeprazole Yes [id number] 40mg Take 1 Univers 40 mg 5-25 capsule by ity of capsule 00:00: mouth in [place] the morning. Branch DECARA Yes [id number] Take 1 Univers 1,250 mcg 5-16 capsule by ity of (50,000 00:00: mouth [place] unit) 00 weekly. Medical capsule Branch DECARA Yes [id number] Take 1 Univers 1,250 mcg 5-16 capsule by ity of (50,000 00:00: mouth [place] unit) 00 weekly. Medical capsule Branch traZODone Yes 1 (EACH) Univ ers 50 mg 5-15 BEDTIME ity of tablet 00:00: ( [place] 00 NEEDED) Medical NEEDED FOR Branch SLEEP ARIPiprazol Yes 5mg Take 1 Univ ers e 5 mg 5-15 tablet by ity of tablet 00:00: mouth at [place] 00 bedtime. Medical Branch traZODone Yes 1 (EACH) Univ ers 50 mg 5-15 BEDTIME ity of tablet 00:00: ( [place] 00 NEEDED) Medical NEEDED FOR Branch SLEEP ARIPiprazol Yes 5mg Take 1 Univ ers e 5 mg 5-15 tablet by ity of tablet 00:00: mouth at [place] 00 bedtime. Medical Branch risperiDONE 2022- No 2 (EACH) U nivers 0.5 mg 4-24 05-25 BEDTIME ity of tablet 00:00: 00:00 [place]KE [place]00 NIGHT FOR Medical 7 NIGHTS, Branch IF NO SIDE EFFECTS INCREASE TO 2 TABS. risperiDONE 2022- No 2 (EACH) U nivers 0.5 mg -24 05-25 BEDTIME ity of tablet 00:00: 00:00 [...] Source Systolic blood 2022-08-16 20:14:00 118 mm[Hg] [facility] [place] [facility] Diastolic blood 2022-08-16 20:14:00 70 mm[Hg] Unive [facility] [place] Heart rate 2022-08-16 20:14:00 76 /min [facility] Body temperature 2022-08-16 20:14:00 36.67 [facility] Respiratory rate 2022-08-16 20:14:00 18 /min [facility] Body height 2022-08-16 20:14:00 172.7 cm [facility] Body weight 2022-08-16 20:14:00 86.773 kg [facility] BMI 2022-08-16 20:14:00 29.09 kg/m2 [facility] Oxygen saturation in 2022-08-16 20:14:00 99 /min [facility] Arterial blood by [facility] Pulse oximetry Branch Procedures This patient has no known procedures. Plan of Care Planned Activity Planned Date Details Comments Source Future Scheduled 2021-11-23 INFLUENZA VACCINE (#1) [facility] 00:00:00 [code = INFLUENZA Medical Ce nter VACCINE (#1)] Future Scheduled 2021-03-[address] [facility] Test 00:00:00 (12+) [code = [facility] DEPRESSION SCREENING (12+)] Future Scheduled [address] [facility] Test 00:00:00 (procedure) [code = [facility] 07326846] Future Scheduled 2020-01-29 DTAP/TDAP/TD VACCINES CH I [...] Facility Department ID 2019-04-05 Inpatient HCAKW KARINA [id number] [facility] 15:40:[address] [place] [address] 2022-10-11 2022-10-11 Outpatient [facility] [id number] Univers 10:20:00 10:20:00 [facility] 2022-08-16 2022-08-[address] [facility] [id number] Univers 15:40:00 15:53:34 Visit Ilana [facility] [id number] Martinez RAMÍREZ [id number] Malcolm as NANO?BLEA [id number] [address] [facility] 2022-08-16 2022-08-16 Outpatient [facility] [id number] Univers 15:40:00 15:53:34 , ILANA york [facility] 2021-06-05 2021-06-05 Outpatient PRIV PRIV [id number] [facility] 12:38:00 12:38:00 [id number] Medica l 2021-06-03 2021-06-03 Outpatient PRIV PRIV [id number] [id number] [facility] 06:48:00 06:48:00 [id number] Medica l 2021-05-27 2021-05-27 Outpatient PRIV PRIV [id number] [id number] [facility] 07:06:00 07:06:00 [id number] Medica l 2021-05-27 2021-05-27 Outpatient [facility] [id number] [id number] [facility] 07:06:00 07:06:00 [id number] Medica l 2019-05-20 2019-05-[address] [facility] [id number] [place] 00:00:00 00:00:[address] [place] [address] Results Test Description Test Time Test Comments Results Result Sour e Comments - XR HAND 3 + V RT 2019-04-05 [place]: St: 18:07:00 REG Name: ALLI GUIDO [facility] : 2000 Age/S: 19/F [address] Unit #: [id number] Loc: [place] [address] Phys: Alfredo Jasso MD Acct: [id number] Dis Date: Status: REG ER PHONE #: [phone] Exam Date: 04/05/2019 1740 FAX #: [phone] Reason: punce[place] wall EXAMS: CPT CODE: [id number] XR HAND 3 + V RT [id number] EXAM: Right wrist 3 views Location code: [...] the hand. PAGE 1 Signed Report (CONTINUED) [place]: St: REG [facility] [place] [facility] 2000 Age/S: 19/F [address] Unit #: [id number] Loc: [place] [address] Phys: Alfredo Jasso MD Acct: [id number] Dis Date: Status: REG ER PHONE #: [phone] Exam Date: 04/05/2019 1740 FAX #: [phone] Reason: formerly [facility] wall EXAMS: CPT CODE: [id number] XR HAND 3 + V RT 68252 (Continued) IMPRESSION: Right hand 1. No acute osseous abnormality. 2. Soft tissue swelling along the dorsum of the hand. at 1807 Reported and signed by: Matthieu Salmeron MD CC: Technologist: Yisel Lin; CEASAR CONNELLY PAGE 2 Signed Report [place]: [facility]: REG Name: ALLI GUIDO [facility] : 2000 Age/S: 19/F [address] Unit #: [id number] Loc: [place] [address] Phys: Alfredo Jasso MD Acct: [id number] Dis Date: Status: REG ER PHONE #: [phone] Exam Date: 04/05/2019 1740 FAX #: [phone] Reason: formerly [facility] wall EXAMS: CPT CODE: [id number] XR HAND 3 + V RT 46650 (Continued) [facility] Date/Time/By: 04/05/2019 (1807) : By: [email or web address] PAGE 3 Signed Report - XR WRIST 3 + V 2019-04-05 [place]: St: RT 18:07:00 REG Name: ALLI GUIDO : 2000 Age/S: 19/F [address] Unit #: [id number] Loc: [place] [address] Phys: Alfredo Jasso MD Acct: [id number] Dis Date: Status: REG ER PHONE #: [phone] Exam Date: 04/05/2019 6600 FAX #: [phone] Reason: pain s/p [place] wall EXAMS: CPT CODE: [id number] XR WRIST 3 + V RT [id number] EXAM: Right wrist 3 views Location code: [...] the hand. PAGE 1 Signed Report (CONTINUED) [place]: St: REG Name: ALLI GUIDO : 2000 Age/S: 19/F [address] Unit #: [id number] Loc: [place] [address] Phys: Alfredo Jasso MD Acct: [id number] Dis Date: Status: REG ER PHONE #: [phone] Exam Date: 04/05/20191739 FAX #: [phone] Reason: pain s/p [place] wall EXAMS: CPT CODE: [id number] XR WRIST 3 + V RT 82975 (Continued) IMPRESSION: Right hand 1. No acute osseous abnormality. 2. Soft tissue swelling along the dorsum of the hand. at 1807 Reported and signed by: Matthieu Salmeron MD CC: Technologist: Yisel Lin; CEASAR CONNELLY PAGE 2 Signed Report [place]: St: REG Name: ALLI GUIDO [facility] : 2000 Age/S: 19/F [address] Unit #: [id number] Loc: [place] [address] Phys: Alfredo Jasso MD Acct: [id number] Dis Date: Status: REG ER PHONE #: [phone] Exam Date: 04/05/20191739 FAX #: [phone] Reason: pain s/p [place] wall EXAMS: CPT CODE: [id number] XR WRIST 3 + V RT 13952 (Continued) [facility] Date/Time/By: 04/05/2019 (1806) : By: [email or web address] PAGE 3 Signed Report HCG POC 2019-04-05 [...] after 48 hours toconf irm . URINALYSIS [id number] 16:21:00 Test Item Value Reference Range Interpretation [...] /HPF 0-5 (RARE) = SQU) BASIC METABOLIC [id number] 16:20:00 Test Item Value Reference Range Interpretation [...] 8.9 mg/dL 8.4-10.2 N CA) CBC W/AUTO [id number] 16:11:00 Test Item Value Reference Range Interpretation [...] 0.02 x10 3/uL 0.0-0.1 N MR, BRAIN, [id number] 12:12:00Anesthesia:->NoneDeos the patient have an implanted electronic [...] anatomic etiology of seizure identified. Signed: Davon Gallegos MDReport Verified Date/Time: 02/25/2019 12:12:10 Reading Location: [facility] C013W Consult Reading Room RAPID DRUG SCREEN, [id number] 15:26:00 Test Item Value Reference Range Interpretation [...] ng/mLOpiate 300 ng/mLMethadone 300 ng/mLAmphetamine/ 1000 ng/mL MethamphetamineThisassay provides an unconfirmed qualitative test result for the clinical management of patients in emergency situations. Chain of custody not maintained. Some itah-xpf-phlxdko medications, as well as adulterants, may cause [...] m CALCULATE ESTIM ATED GFR. URINALYSIS W/ [id number] 14:29:00 Test Item Value Reference Range Interpretation [...] 2 /LPF 514) SOURCE(BEAKER) (test code = 7199) CBC W/PLT COUNT & AUTO [id number] 14:22:00 Test Item Value Reference Range Interpretation [...] (test code = 2801) CT, BRAIN, WITHOUT [id number] 14:15:00Reason for exam:->seizure activityReason for exam:->h/o pseudoseizuresWhat [...] is recommended for further characterization. Signed: Davon Gallegos Verified Date/Time: 02/24/2019 14:15:38 Reading Location: [facility] C013 Neuro Reading Room Ama ctronically signed by: DAVON GALLEGOS MD on 02/24/2019 02:15 PM Notes Date/Time Note Provider Source 2019-04-05 15:47:00-00:00 [facility] EMERGENCY PROVIDER REPORT REPORT#:[id number] REPORT STATUS: Signed DATE:04/05/19 TIME: 1546 PATIENT: ALLI GUIDO UNIT #: [id number] ROOM/BED: AGE: 19 SEX: F PCP PHYS: No Primary or Family Ph ysician SERVICE AUTHOR: Alfredo Jasso MD * ALL edits or amendments must be made on the [place]/computer document * HPI-Seizure General Confirmed Patient Yes Patient Type New patient Initial Greet Date/Time 04/05/19 1547 Presentation Chief Complaint Seizure, generalized Seizure Anatomic [...] % (Auto) (20.5 - 45.5 %) 24.2 [place]alier % (Auto) (5.5 - 11.7 %) 8.0 Eos % (Auto) (0.9 - 2.9 %) 1.5 Baso % (Auto) (0.2 - 1.0 %) 0.3 Neut # (Auto) (2.2 - 4.8 x10 3/uL) 3.87 Lymph # (Auto) (1.3 - 2.9 x10 3/uL) 1.43 [place]alier # (Auto) (0.3 - 0.8 x10 3/uL) 0.47 Eos # (Auto) (0.0 - 0.2 x10 3/uL) 0.09 Baso # (Auto) (0.0 - 0.1 x10 3/uL) 0.02 Immature Gran % (0.0 - 2.0 %) 0.3 Nucleated RBC % (0 - 1.0 %) 0.0 Urines Urine Color (Yellow) Straw Urine Appearance (Clear) Clear Urine pH (5.0 - 8.0) 7.0 Ur Specific [place] (<1.030) 1.002 Urine Protein (Negative mg/dL) NEGATIVE [...] XR HAND 3 + V RT 04/05 3618 Report Impression - Status: SIGNED Entered: 04/05/2019 [...] 1735 Report Impression - Status: SIGNED Entered: 04/05/20191809 IMPRESSION: Right wrist No acute osseous abnormality. [...] symptoms should prompt an immediate return to [facility] or the closest emergency department or [...] by Alfredo Jasso MD on at 2100 [facility] #:[id number] END OF REPORT
--- NOTE | 2022-12-11 13:45 | RAD REPORT ---
EXAM DESCRIPTION: RAD - Chest Pa And Lat (2 Views) - 12/11/2022 1:39 pm CLINICAL HISTORY: CHEST PAIN Chest pain. COMPARISON: <Comparisons> FINDINGS: The lungs are clear. The heart is normal in size. No displaced fractures. IMPRESSION: No acute or concerning finding suspected.
[2022-12-11 14:26] LABS: Absolute Lymphocytes (CBC) 2.8 K/uL (0.7-4.9); Lymphocytes % 39.1 % (15.3-44.8); MCV 76.5 fL (80-100); MPV 8.6 fL (7.6-11.3); Platelets 267 thou/uL (152-406); RBC Red Blood Cell Count 5.36 M/uL (3.86-4.86)
[2022-12-11 14:53] LABS: Potassium 3.9 mEq/L (3.5-5.1); Troponin High Sensitivity 4.2 pg/mL (<58.9)
--- NOTE | 2022-12-11 15:45 | ER ---
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 My nose was running a couple days ago". Coronavirus screen: Vaccine status: Patient reports receiving the 2nd dose of the covid vaccine. Ebola Screen: No symptoms or risks identified at this time. Initial Sepsis Screen: Does the patient meet any 2 criteria? No. Patient's initial sepsis screen is negative. Does the patient have a suspected source of infection? No. Patient's initial sepsis screen is negative. Risk Assessment: Do you want to hurt yourself or someone else? Patient reports no desire to harm self or others. Onset of symptoms was December 11, 2022. 13:26 Method Of Arrival: Ambulatory mb9 13:26 Acuity: FILEMON 3 mb9 Triage Assessment: 13:28 General: Appears in no apparent distress. Behavior is calm, cooperative. Pain: mb9 Complains of pain in chest Quality of pain is described as tightness Pain began suddenly, Is continuous. Neuro: Santana Agitation-Sedation Scale (RASS): 0 - Alert and Calm Level of Consciousness is awake, alert, obeys commands, Oriented to person, place, time, situation, Appropriate for age. Cardiovascular: Reports chest pain, diaphoresis, Patient's skin is warm and dry. Respiratory: Airway is patent Respiratory effort is even, unlabored, Respiratory pattern is regular, symmetrical. GI: Reports nausea. Derm: Skin is pink, warm \\T\\ dry. Musculoskeletal: Range of motion: intact in all extremities. Historical: - Allergies: 13:27 No Known Allergies; mb9 - PMHx: 13:27 Anxiety; Bipolar disorder; epilepsy; mb9 - PSHx: 13:27 None; mb9 - Immunization history:: Adult Immunizations up to date. - Social history:: Smoking status: Reported history of juuling and/or vaping. Screenin:22 [facility] ED Fall Risk Assessment (Adult) History of falling in the last 3 months, cp4 including since admission No falls in past 3 months (0 pts) Confusion or Disorientation No (0 pts) Intoxicated or Sedated No (0 pts) Impaired Gait No (0 pts) Mobility Assist Device Used No (0 pt) Altered Elimination No (0 pt) Score/Fall Risk Level 0 - 2 = Low Risk. Abuse screen: Denies threats or abuse. Nutritional screening: No deficits noted. Tuberculosis screening: No symptoms or risk factors identified. Assessment: 13:34 Reassessment: EKG done in triage. mb9 14:22 General: Appears in no apparent distress. Behavior is calm, cooperative, appropriate cp4 for age. Pain: Complains of pain in chest pressure Pain does not radiate. Neuro: No deficits noted. Cardiovascular: No deficits noted. Respiratory: No deficits noted. GI: No deficits noted. : No deficits noted. EENT: No deficits noted. Derm: No deficits noted. Musculoskeletal: No deficits noted. Vital Signs: 13:26 BP 116 / 70; Pulse 66; Resp 18; Temp 97.9; Pulse Ox 96% on R/A; Weight 94.35 kg; Height mb9 5 ft. 8 in. ; Pain 8/10; 14:33 BP 111 / 71; Pulse 61; Resp 18; Pulse Ox 100% on R/A; ld1 15:12 BP 107 / 62; Pulse 65; Resp 18; Pulse Ox 100% on R/A; ld1 13:26 Body Mass Index 31.63 (94.35 kg, 172.72 cm) mb9 13:26 Pain Scale: Adult mb9 ED Course: 13:15 EKG done, by ED staff, reviewed by Froilan Leblanc DO. mb9 13:23 Patient arrived in ED. mg5 13:25 Adele Thomson, CARLOS is PHCP. aj3 13:25 Froilan Leblanc DO is Attending Physician. aj3 13:27 Triage completed. mb9 13:27 Arm band placed on. mb9 13:40 Chest Pa And Lat (2 Views) XRAY In Process Unspecified. EDMS 14:05 Corona Guerrero, NICOLE is Primary Nurse. jl7 14:21 Basic Metabolic Panel Sent. cp4 14:21 CBC with Diff Sent. cp4 14:21 Troponin HS Sent. cp4 14:22 Bed in low position. Call light in reach. Side rails up X 1. Client placed on cp4 continuous cardiac and pulse oximetry monitoring. NIBP monitoring applied. 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 Pulse ox on. NIBP on. 14:22 Inserted saline lock: 20 gauge in left antecubital area, using aseptic technique. Blood cp4 collected. 14:33 Patient maintains SpO2 saturation greater than 95% on room air. ld1 15:44 Radhames Good MD is Referral Physician. ms3 15:56 No provider procedures requiring assistance completed. IV discontinued, intact, kc6 bleeding controlled, No redness/swelling at site. Pressure dressing applied. Administered Medications: No medications were administered Medication: 14:22 VIS not applicable for this client. cp4 Outcome: 15:45 Discharge ordered by . ms3 15:56 Discharged to home ambulatory, kc6 15:56 Condition: stable 15:56 Discharge instructions given to patient, Instructed on discharge instructions, follow up and referral plans. Demonstrated understanding of instructions, follow-up care, 16:01 Patient left the ED. kc6 Signatures: Dispatcher [employer] EDMS Corona Guerrero RN RN jl7 Froilan Leblanc, DO ms3 Marina Leblanc RN RN ld1 Sobia Neff RN RN kc6 Adele Thomson, CARLOS GLOBAL RECRUITER Desiree Bye, RN RN mb9 Jillian De 5 Jennie Read cp4
--- NOTE | 2022-12-11 15:45 | EDPHYS ---
Physician Documentation [facility] Name: Jocy Claros Age: 22 yrs Sex: Female : 2000 Arrival Date: 12/11/2022 Time: 13:19 Bed 8 Private MD: ED Physician Froilan Leblanc HPI: 12/11 14:20 This 22 yrs old Black Female presents to ER via Ambulatory with complaints of Chest ms3 Pain, Abdominal Pain. 14:20 22-year-old female with past medical history of anxiety, bipolar, epilepsy presents for ms3 chest tightness that began while at work prior to arrival. Patient endorses nausea. Patient denies fevers or chills. Patient states her pain is an 8/10 located in the center of her chest. Patient denies alleviating or inciting factors. Patient denies family history of sudden cardiac .. Historical: - Allergies: 13:27 No Known Allergies; mb9 - PMHx: 13:27 Anxiety; Bipolar disorder; epilepsy; mb9 - PSHx: 13:27 None; mb9 - Immunization history:: Adult Immunizations up to date. - Social history:: Smoking status: Reported history of juuling and/or vaping. ROS: 14:20 Constitutional: Negative for fever, and chills. Neck: Negative for injury, pain, and ms3 swelling, 14:20 MS/Extremity: Negative for injury and deformity, Skin: Negative for injury, rash, and discoloration, 14:20 Cardiovascular: Positive for chest pain, 14:20 All other systems are negative, Exam: 14:20 Constitutional: This is a well developed, well nourished patient who is awake, alert, ms3 and in no acute distress. Head/Face: Normocephalic, atraumatic. Neck: Trachea midline, no cervical lymphadenopathy. Supple, full range of motion without nuchal rigidity, or vertebral point tenderness. No Meningismus. Chest/axilla: Normal chest wall appearance and motion. Nontender with no deformity. Cardiovascular: Regular rate and rhythm with a normal S1 and S2. No gallops, murmurs, or rubs. Normal PMI, no JVD. No pulse deficits. Respiratory: Lungs have equal breath sounds bilaterally, clear to auscultation and percussion. No rales, rhonchi or wheezes noted. No increased work of breathing, no retractions or nasal flaring. Abdomen/GI: Soft, non-tender, with normal bowel sounds. No distension or tympany. No guarding or rebound. No evidence of tenderness throughout. Skin: Warm, dry with normal turgor. Normal color with no rashes, no lesions, and no evidence of cellulitis. MS/ Extremity: Pulses equal, no cyanosis. Neurovascular intact. Full, normal range of motion. 14:20 ECG was reviewed by the Attending Physician. Vital Signs: 13:26 BP 116 / 70; Pulse 66; Resp 18; Temp 97.9; Pulse Ox 96% on R/A; Weight 94.35 kg; Height mb9 5 ft. 8 in. ; Pain 8/10; 14:33 BP 111 / 71; Pulse 61; Resp 18; Pulse Ox 100% on R/A; ld1 15:12 BP 107 / 62; Pulse 65; Resp 18; Pulse Ox 100% on R/A; ld1 13:26 Body Mass Index 31.63 (94.35 kg, 172.72 cm) mb9 13:26 Pain Scale: Adult mb9 MDM: 13:29 Patient medically screened. ms3 15:45 Differential diagnosis: abnormal EKG, acute myocardial infarction, coronary artery ms3 disease. HEART Score: History: Slightly Suspicious (0), ECG: Normal (0), Age: < or = 45 years (0), Risk Factors: No Risk Factors Known (0), Troponin: < or = 1 x Normal Limit (0), Total Score = 0. Data reviewed: vital signs, nurses notes, lab test result(s), EKG, radiologic studies, and as a result, I will discharge patient. Consideration of Admission/Observation Escalation of care including admission/observation considered. Heart score = 0. I considered the following discharge prescriptions or medication management in the emergency department. Independent interpretation of the following test(s) in the Emergency Department X-Ray: My interpretation is CXR images reviewed by me do not show PNA or PTX. Counseling: I had a detailed discussion with the patient and/or guardian regarding the historical points, exam findings, and any diagnostic results supporting the discharge/admit diagnosis, lab results, radiology results, the need for outpatient follow up, to return to the emergency department if symptoms worsen or persist or if there are any questions or concerns that arise at home. Special discussion: Based on the patient's history, exam, and Dx evaluation, there is no indication for emergent intervention or inpatient Tx. It is understood by the patient/guardian that if the Sx's persist or worsen they need to return immediately for re-evaluation. ED course: Discussed EKG, labs, chest x-ray findings with patient. Patient to follow-up with Dr. Good in 2 to 3 days. Patient understands and agrees with plan. All questions were answered. Return precautions discussed include worsening symptoms, or any other concerns. 12/11 14:05 Order name: Basic Metabolic Panel; Complete Time: 15:19 ms3 12/11 14:05 Order name: CBC with Diff; Complete Time: 15: ms3 12/11 14:05 Order name: Troponin HS; Complete Time: 15: ms3 12/11 13:28 Order name: Chest Pa And Lat (2 Views) XRAY; Complete Time: 14:03 ms3 12/11 13:28 Order name: EKG; Complete Time: 13:29 ms3 12/11 14:05 Order name: Cardiac monitoring; Complete Time: 14:11 ms3 12/11 14:05 Order name: EKG - Nurse/Tech; Complete Time: 14:11 ms3 12/11 14:05 Order name: IV Saline Lock; Complete Time: 14:21 ms3 12/11 14:05 Order name: Labs collected and sent; Complete Time: 14:21 ms3 12/11 14:05 Order name: O2 Per Protocol; Complete Time: 14:11 ms3 12/11 14:05 Order name: O2 Sat Monitoring; Complete Time: 14:11 ms3 EC:20 Rate is 83 beats/min. Rhythm is regular. QRS [place] is Normal. [place] interval is normal. QRS ms3 interval is normal. Clinical impression: NSR w/ Non-specific ST/T Changes. Interpreted by me. Reviewed by me. Administered Medications: No medications were administered Disposition Summary: 12/11/22 15:45 Discharge Ordered Notes: Location: Home ms3 Condition: Stable ms3 Diagnosis - Chest pain, unspecified ms3 Followup: ms3 - With: Radhames Good MD - When: 2 - 3 days - Reason: Recheck today's complaints Discharge Instructions: - Discharge Summary Sheet ms3 - Nonspecific Chest Pain, Adult ms3 Forms: - Medication Reconciliation Form ms3 - Thank You Letter ms3 - Antibiotic Education ms3 - Prescription Opioid Use ms3 - Patient Portal Instructions ms3 - Leadership Thank You Letter ms3 - Work release form kc6 Signatures: Dispatcher [employer] Dylon Huitron MD MD rn Froilan Leblanc DO DO ms3 Desiree Bailey RN RN mb9
[2022-12-11 16:53] VITALS: TEMP 97.9
[2022-12-11 16:54] VITALS: O2SAT 100
[2022-12-11 16:55] VITALS: BP 107/62
--- NOTE | 2022-12-12 14:33 | EKG ---
Test Date: 2022-12-11 Test Time: 13:34:00 Marketing Researcher: MB MEASUREMENT RESULTS: Intervals: Rate: 83 ME: 152 QRSD: 84 QT: 358 QTc: 420 [place]: P: 68 ME: 152 QRS: 68 T: 39 INTERPRETIVE STATEMENTS: Normal sinus rhythm Cannot rule out Anterior infarct, age undetermined Abnormal ECG Compared to ECG 03/25/2022 23:15:55 Myocardial infarct finding now present T-wave abnormality no longer present Electronically Signed On 12-12-22 14:31:12 CDT by Radhames Good
== END 2022-12-11 16:01 | disposition home or self-care (01) ==
LOC: ER 13:19
DX: R07.89 Other chest pain (principal)
CPT/HCPCS: 36415; 71046; 80048; 84484; 85025; 93005

== ENCOUNTER 2023-01-01 15:59 | Emergency (ER) | payer OTHER ==
--- OUTSIDE RECORDS SUMMARY | 2023-01-01 16:03 | XMS REPORT | Continuity of Care Document ---
:2000 Author Organization [facility] t Address [address] [place] [address] Care Team Providers Name Role Phone ILANA SIMEON Primary Care Physician Unavailable ILANA SIMEON Attending Clinician Unavailable Ilana Simeon MD Attending Clinician TONI ALMARAZ Attending Clinician Unavailable TISH LONG Attending Clinician Unavailable KNOW, DOES_NOT Admitting Clinician Unavailable Payers Payer Name Policy Type Policy Number Effective Date Expiration Date S kim [facility] [id number] 2017 00:00:00 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 00:00: [address] Eating Eating Disease Active Univers disorder disorder 5-25 ity of 00:00: [address] LOC (loss LOC (loss Disease Recurre [...] Known DA Active [facility] [facility] No Known DA Active U [facility] 12-20 [facility] 00:00: d 00 [facility] NO KNOWN Drug Active Univers ALLERGIE Class ity of S [facility] Social History Social Habit Start Date Stop Date Quantity Comments Source Sexual orientation [facility] History [facility] Alcohol Std Drinks Medica l [place] History [facility] Alcohol Binge Medical [facility] Gender identity [facility] History of tobacco Cigarette Smoker University of use [facility] Exposure to 2022-08-06 2022-08-16 Not sure University SARS-CoV-2 (event) 00:00:00 15:09:00 [facility] Cigarette 2022-08-16 2022-08-16 University of pack-years 00:00:00 00:00:00 [facility] Tobacco use and 2022-08-16 2022-08-16 Smokeless Universit y of exposure 00:00:00 00:00:00 tobacco non-user [facility] Alcohol Comment 2019-05-20 2019-05-20 couple of [...] alcohol (finding) History SDOH 2019-02-24 2019-02-24 1 [facility] Alcohol Frequency 00:00:00 00:00:00 [facility] Sex Assigned At [birth year] [facility] 00:00:00 00:00:00 Hospital Smoking Status Start Date Stop Date Source Ex-smoker 2022-08-16 00:00:00 2022-08-16 00:00:00 [facility] [place] Smokes tobacco daily 2019-05-20 00:00:00 [facility] Light tobacco smoker 2019-02-24 00:00:00 [facility] Medications Ordered Filled Start Stop Current Ordering Indication Dosage Frequency Signature Comments Components Source Medication Medication Date Date Medication? Clinician (SIG) Name Name omeprazole Yes [id number] 40mg Take 1 Univers 40 mg 5-25 capsule by ity of capsule 00:00: mouth in [place] 00 the morning. Branch omeprazole Yes [id number] 40mg Take 1 Univers 40 mg 5-25 capsule by ity of capsule 00:00: mouth in [place] the . Branch DECARA Yes [id number] Take 1 Univers 1,250 mcg 5-16 capsule by ity of (50,000 00:00: mouth [place] unit) 00 weekly. Medical capsule Branch DECARA Yes [id number] Take 1 Univers 1,250 mcg 5-16 capsule by ity of (50,000 00:00: mouth [place] unit) 00 weekly. Medical capsule Branch traZODone Yes 1 (EACH) Univ ers 50 mg 5-15 BEDTIME ity of tablet 00:00: ( [place] 00 NEEDED) Medical NEEDED FOR Branch SLEEP ARIPiprazol Yes 5mg Take 1 Univ ers e 5 mg 5-15 tablet by ity of tablet 00:00: mouth at [place] 00 bedtime. Medical Branch traZODone Yes 1 (EACH) Univ ers 50 mg 5-15 BEDTIME ity of tablet 00:00: ( [place] 00 NEEDED) Medical NEEDED FOR Branch SLEEP ARIPiprazol Yes 5mg Take 1 Univ ers e 5 mg 5-15 tablet by ity of tablet 00:00: mouth at [place] [address] bedtime. Medical Branch risperiDONE 2022- No 2 [...] Source Systolic blood 2022-08-16 20:14:00 118 mm[Hg] [facility] [place] Diastolic blood 2022-08-16 20:14:00 70 mm[Hg] [facility] Heart rate 2022-08-16 20:14:00 76 /min [facility] Body temperature 2022-08-16 20:14:00 36.67 Trista [facility] Respiratory rate 2022-08-16 20:14:00 18 /min [facility] Body height 2022-08-16 20:14:00 172.7 cm [facility] Body weight 2022-08-16 20:14:00 86.773 kg [facility] BMI 2022-08-16 20:14:00 29.09 kg/m2 [facility] Oxygen saturation in 2022-08-16 20:14:00 99 /min [facility] Arterial blood by [facility] Pulse oximetry Branch Procedures This patient has [...] Test 00:00:00 (procedure) [code = Medical Center 43525669] Future Scheduled 2020-01-29 DTAP/TDAP/TD VACCINES CH I [...] Facility Department ID 2019-04-05 Inpatient HCAKW KARINA [id number] [facility] 15:40:00 82 [facility] 2022-10-11 2022-10-11 Outpatient R [facility] [id number] Univers 10:20:00 10:20:00 ILANA [facility] 2022-08-16 2022-08-16 Office [facility] [id number] Univers 15:40:00 15:53:34 Visit , Ilana NOBLE [id number] ity of Ayah OBEDGOYO [id number] Malcolm as NANO?BLEA [id number] [address] MEDICAL OFFICE BUILDING 2022-08-16 2022-08-16 Outpatient R [facility] [id number] Univers 15:40:00 15:53:34 , ILANA collins [facility] 2021-06-05 2021-06-05 Outpatient PRIV PRIV [id number] [facility] 12:38:00 12:38:00 [id number] Medica l 2021-06-03 2021-06-03 Outpatient PRIV PRIV [id number] [facility] 06:48:00 06:48:00 [id number] Medica l 2021-05-27 2021-05-27 Outpatient PRIV PRIV [id number] [facility] 07:06:00 07:06:00 [id number] Medica l 2021-05-27 2021-05-27 Outpatient PRIV PRIV [id number] [facility] 07:06:00 07:06:00 [id number] Medica l 2019-05-20 2019-05-20 Emergency ESTIVEN, [facility] [id number] [address] [place] 00:00:00 00:00:[address] [place] [address] Results Test Description Test Time Test Comments Results Result [facility] e Comments - XR HAND 3 + V RT 2019-04-05 [place]: St: 18:07:00 REG Name: ALLI GUIDO [facility] : 2000 Age/S: 19/F [address] Unit #: [id number] Loc: [place] [address] Phys: Alfredo Jasso MD Acct: [id number] Dis Date: Status: REG ER PHONE #: [phone] Exam Date: 04/05/2019 1740 FAX #: [phone] Reason: puncehd wall EXAMS: CPT CODE: [id number] XR HAND 3 + V RT [id number] EXAM: Right wrist 3 views Location code: [...] the hand. PAGE 1 Signed Report (CONTINUED) [place]: [facility]: REG Name: ALLI GUIDO [facility] : 2000 Age/S: 19/F [address] Unit #: [id number] Loc: [place] [address] Phys: Alfredo Jasso MD Acct: [id number] Dis Date: Status: [facility] ER PHONE #: [phone] Exam Date: 04/05/2019 4015 FAX #: [phone] Reason: [facility] EXAMS: CPT CODE: [id number] XR HAND 3 + V RT [id number] (Continued) IMPRESSION: Right hand 1. No acute osseous abnormality. 2. Soft tissue swelling along the dorsum of the hand. at 1807 Reported and signed by: Matthieu Salmeron MD CC: Technologist: Yisel Lin; CEASAR CONNELLY PAGE 2 Signed Report [place]: [facility]: REG Name: ALLI GUIDO [facility] : 2000 Age/S: 19/F [address] Unit #: [id number] Loc: [place] [address] Phys: Alfredo Jasso MD Acct: [id number] Dis Date: Status: REG ER PHONE #: [phone] Exam Date: 04/05/20191739 FAX #: [phone] Reason: puncehd wall EXAMS: CPT CODE: [id number] XR HAND 3 + V RT 68874 (Continued) [facility] Date/Time/By: 04/05/2019 (1807) : By: [email or web address] PAGE 3 Signed Report - XR WRIST 3 + V 2019-04-05 [place]: St: RT 18:07:00 REG Name: ALLI GUIDO [facility] : 2000 Age/S: 19/F [address] Unit #: [id number] Loc: [place] [address] Phys: Alfredo Jasso MD Acct: [id number] Dis Date: Status: REG ER PHONE #: [phone] Exam Date: 04/05/20191739 FAX #: [phone] Reason: pain s/p punchthroug wall EXAMS: CPT CODE: [id number] XR WRIST 3 + V RT [id number] EXAM: Right wrist 3 views Location code: [...] the hand. PAGE 1 Signed Report (CONTINUED) [place]: St: REG Name: ALLI GUIDO [facility] : 2000 Age/S: 19/F [address] Unit #: [id number] Loc: [place] [address] Phys: Alfredo Jasso MD Acct: [id number] Dis Date: Status: REG ER PHONE #: [phone] Exam Date: 04/05/2019 174 FAX #: [phone] Reason: pain s/p punchthroug wall EXAMS: CPT CODE: [id number] XR WRIST 3 + V RT 40457 (Continued) IMPRESSION: Right hand 1. No acute osseous abnormality. 2. Soft tissue swelling along the dorsum of the hand. at 1807 Reported and signed by: Matthieu Salmeron MD CC: Technologist: Yisel Lin; CEASAR CONNELLY PAGE 2 Signed Report [place]: St: REG Name: ALLI GUIDO [facility] : 2000 Age/S: 19/F [address] Unit #: [id number] Loc: [place] [address] Phys: Alfredo Jasso MD Acct: [id number] Dis Date: Status: REG ER PHONE #: [phone] Exam Date: 04/05/2019 174 FAX #: [phone] Reason: pain s/p punchthroug wall EXAMS: CPT CODE: [id number] XR WRIST 3 + V RT 17338 (Continued) Trnsc[facility] Date/Time/By: 04/05/2019 (1807) : By: [email or web address] PAGE 3 Signed Report [facility] 2019-04-05 16:36:00 Test Item Value Reference Range Interpretation Comme nts HCG POC <5.0 0-4.9 N Results of (test IU/L 5.0-25.0 IU/L a re indeterminate and do not ruleout . Because code = HCG values doub le approximately every48 hours in a normal , HCGPOC) patients with l ow levels ofHCG should be resampled and retested after 48 hours toconf irm . URINALYSIS [id number] 16:21:00 Test Item Value Reference Range Interpretation [...] /HPF 0-5 (RARE) = SQU) BASIC METABOLIC [id number] 16:20:00 Test Item Value Reference Range Interpretation [...] 8.9 mg/dL 8.4-10.2 N CA) CBC W/AUTO [id number] 16:11:00 Test Item Value Reference Range Interpretation [...] 0.02 x10 3/uL 0.0-0.1 N MR, BRAIN, [id number] 12:12:00Anesthesia:->NoneDeos the patient have an implanted electronic [...] MDReport Verified Date/Time: 02/25/2019 12:12:10 Reading Location: [facility] C013W Consult Reading Room RAPID DRUG SCREEN, [id number] 15:26:00 Test Item Value Reference Range Interpretation [...] situations. Chain of custody not maintained. Some jrwh-bxq-hrujmlr medications, as well as adulterants, may cause [...] m CALCULATE ESTIM ATED GFR. URINALYSIS W/ [id number] 14:29:00 Test Item Value Reference Range Interpretation [...] 2 /LPF 514) SOURCE(BEAKER) (test code = 1897) CBC W/PLT COUNT & AUTO [id number] 14:22:00 Test Item Value Reference Range Interpretation [...] (test code = 2801) CT, BRAIN, WITHOUT [id number] 14:15:00Reason for exam:->seizure activityReason for exam:->h/o pseudoseizuresWhat [...] MDReport Verified Date/Time: 02/24/2019 14:15:38 Reading Location: [facility] C013V Neuro Reading Room Elec tronically signed by: DAVON TURNER MD on 02/24/2019 02:15 PM
--- NOTE | 2023-01-01 17:57 | ER ---
Nurse's Notes [facility] Name: Jocy Claros Age: 22 yrs Sex: Female : 2000 Arrival Date: 01/01/2023 Time: 15:59 Bed Waiting Private MD: Diagnosis: Presentation: 01/01 16:28 Note Not in WR when called by ED provider. nj1 16:35 Note Not in WR when called for triage. [facility] ED Course: 16:00 Patient arrived in ED. rg4 16:00 Becky Carr FNP-C [facility] kb 16:00 Dylon Turner MD is Attending Physician. kb 17:35 Patient's name was called from ER lobby. No response. hb 17:56 Patient's name was called from ER lobby. No response. Unable to locate patient. Will hb disposition as left without being seen by a provider. Administered Medications: No medications were administered Outcome: 17:57 Patient left the ED. hb Signatures: Becky Carr FNP-C FNP-Rola Ortiz, RN RN Judy Duffy 4 Anna Silva RN RN nj1
--- NOTE | 2023-01-01 17:57 | EDPHYS ---
Physician Documentation [facility] Name: Jocy Claros Age: 22 yrs Sex: Female : 2000 Arrival Date: 01/01/2023 Time: 15:59 Bed Waiting Private MD: ED Physician MDM: 01/01 16:16 ED course: Unable to located pt in the lobby. Called number on file and [facility] Administered Medications: No medications were administered Disposition Summary: 01/01/23 17:57 Eloped Notes: Disposition: Before Triage hb Reason: unknown hb Signatures: Becky Carr, BRENTON-C CHEMICAL MIXER-Rola Ortiz RN RN hb Corrections: (The following items were deleted from the chart) 16:16 16:03 Patient medically screened. kb kb
== END 2023-01-01 17:57 | disposition left against medical advice (07) ==
LOC: ER 15:59
DX: Z02.9 Encounter for administrative examinations, unspecified (principal)

== ENCOUNTER 2023-01-01 18:19 | Emergency (ER) | payer OTHER ==
--- OUTSIDE RECORDS SUMMARY | 2023-01-01 18:23 | XMS REPORT | Continuity of Care Document ---
:[address] [facility] t Address [address] [facility] [address] [place] [address] Care Team Providers Name Role Phone Asked, No Pcp Primary Care Physician Unavailable ILANA HAWKINS Attending Clinician Unavailable Ilana Hawkins MD Attending Clinician [phone] TONI ALMARAZ Attending Clinician Unavailable TISH LONG Attending Clinician Unavailable KNOW, DOES_NOT Admitting Clinician Unavailable Payers Payer Name Policy Type Policy Number Effective Date Expiration Date Reanna alvarez [employer] [id number] 2017 00:00:00 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 00:00: [address] Eating Eating Disease Active Univers disorder disorder 5-25 ity of 00:00: [address] LOC (loss LOC (loss Disease Recurre 2018-[address] [facility]04 [facility] conscious[facility] consciousn [facility]: Me dical ess) ess) 00 Center Anxiety Anxiety Disease Active 2018-[address] [facility] 00[facility] Medical 00 Center Seizure-li Seizure-li Disease Recurre 2018-[address] ke ke cae 2-03 [facility] activity activity 00:00: Medica l 00 Center Allergies, Adverse Reactions, Alerts Allergy Allergy Status Severity Reaction(s) Onset Inactive Treating Comm ents Source Name Type Date Date Clinician No Known DA Active U [facility] [place] [facility] No Known DA Active [facility] [place] [facility]:[place] [facility] NO KNOWN Drug Active Univers ALLERGIE Class ity of S [facility] Social History Social Habit Start Date Stop Date Quantity Comments Source Gender identity [facility] Sexual orientation Method ist Hospital History [facility] Alcohol Std Drinks Medica l Center History [facility] Alcohol Binge Medical [facility] [facility] History of tobacco Cigarette Smoker University of use [facility] Exposure to 2022-08-06 2022-08-16 Not sure [facility] SARS-CoV-2 (event) 00:00:00 15:09:00 [facility] Cigarette 2022-08-16 2022-08-16 University of pack-years 00:00:00 00:00:00 [facility] Tobacco use and 2022-08-16 2022-08-16 Smokeless Universit y of exposure 00:00:00 00:00:00 tobacco non-user [facility] Alcohol Comment 2019-05-20 2019-05-20 couple of times [...] [facility] Alcohol Frequency 00:00:00 00:00:00 [facility] Center Sex Assigned At [birth year] [facility] 00:00:00 00:00:00 Hospital Smoking Status Start Date Stop Date Source Ex-smoker 2022-08-16 00:00:00 2022-08-16 00:00:00 [facility] Smokes tobacco daily 2019-05-20 00:00:00 [facility] Light tobacco smoker 2019-02-24 00:00:00 [facility] Medications Ordered Filled Start Stop Current Ordering Indication Dosage Frequency Signature Comments Components Source Medication Medication Date Date Medication? Clinician (SIG) Name Name omeprazole Yes [id number] 40mg Take 1 Univers 40 mg 5-25 capsule by ity of capsule 00:00: mouth in [place] 00 the Medical morning. Branch omeprazole Yes [id number] 40mg Take 1 Univers 40 mg 5-25 capsule by ity of capsule 00:00: mouth in [place] the morning. Branch DECARA Yes [id number] Take 1 Univers 1,250 mcg 5-16 capsule by ity of (50,000 00:00: mouth [place] unit) 00 weekly. Medical capsule Branch DECARA Yes [id number] Take 1 Univers 1,250 mcg 5-16 capsule by ity of (50,000 00:00: mouth [place] unit) 00 weekly. Medical capsule Branch traZODone Yes 1 (EACH) Univ ers 50 mg 5-15 BEDTIME ity of tablet 00:00: ( [place] 00 NEEDED) Medical NEEDED FOR Branch SLEEP ARIPiprazol Yes 5mg Take 1 Univ ers e 5 mg 5-15 tablet by ity of tablet 00:00: mouth at [place] 00 bedtime. Medical Branch traZODone Yes 1 (EACH) Univ ers 50 mg 5-15 BEDTIME ity of tablet 00:00: ( [place] 00 NEEDED) Medical NEEDED FOR Branch SLEEP ARIPiprazol Yes 5mg Take 1 Univ ers e 5 mg 5-15 tablet by ity of tablet 00:00: mouth at [place] 00 bedtime. Medical Branch risperiDONE 2022- No [...] 00 LARLY ONCE Medi gulshan WEEKLY Branch naproxen 2020-0 Yes 250mg Q.5D Take 250 [...] 2020-0 Yes 250mg Q.5D Take 250 Meth lm (NAPROSYN) 2-[address] 250 MG 22:58: mouth 2 Hosp[facility] tablet 51 (two) l times a day with meals. levETIRAcet 2020-0 Yes 500mg Q.5D Take 500 M ethodi am (KEPPRA) 2-[address] 500 MG 22:58: mouth 2 Hospita tablet 51 (two) l times a day. Vital Signs Vital Name Observation Time Observation Value Comments Source Systolic blood 2022-08-16 20:14:00 118 [facility] Diastolic [facility] 2022-08-16 20:14:00 70 mm[facility]Hg[facility] [place] Heart rate 2022-08-16 20:14:00 76 /min [facility] Body temperature 2022-08-16 20:14:00 36.67 Trista [facility] Respiratory rate 2022-08-16 20:14:00 18 /min [facility] Body height 2022-08-16 20:14:00 172.7 cm [facility] Body weight 2022-08-16 20:14:00 86.773 kg [facility] BMI 2022-08-16 20:14:00 29.09 kg/m2 Universi ty of [facility] Oxygen saturation in 2022-08-16 20:14:00 99 /min [facility] Arterial blood by [facility] Pulse oximetry Branch Procedures This patient [...] Luke s Test 00:00:00 (procedure) [code = [facility] [id number]] Future Scheduled 2020-01-29 DTAP/TDAP/TD VACCINES CH I [...] Facility Department ID 2019-04-05 Inpatient HCAKW KARINA [id number] [facility] 15:40:[address] [place] [address] 2022-10-11 2022-10-11 Outpatient R SHRUTHI [facility] [id number] [facility] 10:20:00 10:20:00 ILANA of [facility] 2022-08-16 2022-08-16 Office Shruthi [facility] [id number] [facility] 15:40:00 15:53:34 Visit Ilana [id number] Martinez RAMÍREZ [id number] Malcolm as NANO?BLEA [id number] [place] [address] MEDICAL OFFICE BUILDING 2022-08-16 2022-08-16 Outpatient R SHRUTHI [facility] [id number] Univers 15:40:00 15:53:34 , ILANA [place] karina of [facility] 2021-06-05 2021-06-05 Outpatient PRIV PRIV [id number] [facility] 12:38:00 12:38:00 [id number] Medica l 2021-06-03 2021-06-03 Outpatient PRIV PRIV [id number] [facility] 06:48:00 06:48:00 [id number] Medica l 2021-05-27 2021-05-27 Outpatient PRIV PRIV [id number] [facility] 07:06:00 07:06:00 [id number] Medica l 2021-05-27 2021-05-27 Outpatient PRIV PRIV [id number] [facility] 07:06:00 07:06:00 [id number] Medica l 2019-05-20 2019-05-20 Emergency [facility] [id number] 1428 [place] 00:00:00 00:00:[address] Results Test Description Test Time Test Comments Results Result [facility] e Comments - XR HAND 3 + V RT 2019-04-05 [place]: St: 18:07:00 REG Name: JOCY CLAROS Lucian [facility] : 2000 Age/S: 19/F [address] Unit #: [id number] Loc: [place] [address] Phys: Alfredo Jasso MD Acct: [id number] Dis Date: Status: REG ER PHONE #: [phone] Exam Date: 04/05/2019 1740 FAX #: [phone] Reason: puncehd wall EXAMS: CPT CODE: [id number] XR HAND 3 + V RT [id number] EXAM: Right wrist 3 views Location code: [...] the hand. PAGE 1 Signed Report (CONTINUED) [place]: St: REG Name: JOCY CLAROS [facility] : 2000 Age/S: 19/F [address] Unit #: [id number] Loc: [place] [address] Phys: Alfredo Jasso MD Acct: [id number] Dis Date: Status: REG ER PHONE #: [phone] Exam Date: 04/05/2019 1740 FAX #: [phone] Reason: [facility] EXAMS: CPT CODE: [id number] XR HAND 3 + V RT [id number] (Continued) IMPRESSION: Right hand 1. No acute osseous abnormality. 2. Soft tissue swelling along the dorsum of the hand. at 1807 Reported and signed by: Matthieu Salmeron MD CC: Technologist: Yisel Lin; CEASAR CONNELLY PAGE 2 Signed Report [place]: St: REG Name: JOCY CLAROS [facility] : 2000 Age/S: 19/F [address] Unit #: [id number] Loc: [place] [address] Phys: Alfredo Jasso MD Acct: [id number] Dis Date: Status: REG ER PHONE #: [phone] Exam Date: 04/05/20191739 FAX #: [phone] Reason: puncehd wall EXAMS: CPT CODE: [id number] XR HAND 3 + V RT [id number] (Continued) [facility] Date/Time/By: 04/05/2019 (180) : By: [email or web address] PAGE 3 Signed Report - XR WRIST 3 + V 2019-04-05 [place]: St: RT 18:07:00 REG Name: JOCY CLAROS [facility] : 2000 Age/S: 19/F [address] Unit #: [id number] Loc: [place] [address] Phys: Alfredo Jasso MD Acct: [id number] Dis Date: Status: REG ER PHONE #: [phone] Exam Date: 04/05/20191739 FAX #: [phone] Reason: pain s/p punchthroug wall EXAMS: CPT CODE: [id number] XR WRIST 3 + V RT 10724 EXAM: Right wrist 3 views Location code: [...] the hand. PAGE 1 Signed Report (CONTINUED) [place]: [facility]: REG Name: JOCY CLAROS [facility] : 2000 Age/S: 19/F [address] Unit #: [id number] Loc: [place] [address] Phys: Alfredo Jasso MD Acct: [id number] Dis Date: Status: [facility] ER PHONE #: [phone] Exam Date: 04/05/2019 8029 FAX #: [phone] Reason: pain s/p punchthroug wall EXAMS: CPT CODE: [id number] XR WRIST 3 + V RT 55613 (Continued) IMPRESSION: Right hand 1. No acute osseous abnormality. 2. Soft tissue swelling along the dorsum of the hand. at 1807 Reported and signed by: Matthieu Salmeron MD CC: Technologist: Yisel Lin; CEASAR CONNELLY PAGE 2 Signed Report [place]: [facility]: REG Name: JOCY CLAROS [facility] : 2000 Age/S: 19/F [address] Unit #: [id number] Loc: [place] [address] Phys: Alfredo Jasso MD Acct: [id number] Dis Date: Status: [facility] ER PHONE #: [phone] Exam Date: 04/05/2019 1740 FAX #: [phone] Reason: pain s/p punchthroug wall EXAMS: CPT CODE: [id number] XR WRIST 3 + V RT 70738 (Continued) Trnscrd Date/Time/By: 04/05/2019 (180) : By: [...] after 48 hours toconf irm . URINALYSIS [id number] 16:21:00 Test Item Value Reference Range Interpretation [...] /HPF 0-5 (RARE) = SQU) BASIC METABOLIC [id number] 16:20:00 Test Item Value Reference Range Interpretation [...] 8.9 mg/dL 8.4-10.2 N CA) CBC W/AUTO [id number] 16:11:00 Test Item Value Reference Range Interpretation [...] 0.02 x10 3/uL 0.0-0.1 N MR, BRAIN, [id number] 12:12:00Anesthesia:->NoneDeos the patient have an implanted electronic [...] MDReport Verified Date/Time: 02/25/2019 12:12:10 Reading Location: [address] Consult Reading Room RAPID DRUG SCREEN, [id number] 15:26:00 Test Item Value Reference Range Interpretation [...] situations. Chain of custody not maintained. Some fmbn-jwi-qocpktz medications, as well as adulterants, may cause [...] m CALCULATE ESTIM ATED GFR. URINALYSIS W/ [id number] 14:29:00 Test Item Value Reference Range Interpretation [...] 2 /LPF 514) SOURCE(BEAKER) (test code = 7305) CBC W/PLT COUNT & AUTO [id number] 14:22:00 Test Item Value Reference Range Interpretation [...] (test code = 2801) CT, BRAIN, WITHOUT [id number] 14:15:00Reason for exam:->seizure activityReason for exam:->h/o pseudoseizuresWhat [...] recommended for further characterization. Signed: Davon Gallegos MDReport Verified Date/Time: 02/24/2019 14:15:38 Reading Location: [facility] Neuro Reading Room Elec tronically signed by: DAVON GALLEGOS MD on 02/24/2019 02:15 PM
[2023-01-01] MEDS ORDERED: METOCLOPRAMIDE 10 MG/2mL INJ ONE (19:06)
[2023-01-01] MEDS ORDERED: KETOROLAC 30 MG/ML INJ ONE (19:06)
[2023-01-01] MEDS ORDERED: dexAMETHasone 10 MG/ML VIAL ONE (19:06)
[2023-01-01] MEDS ORDERED: DIPHENHYDRAMINE 50 MG/ML VIAL ONE (19:07)
[2023-01-01] MEDS ORDERED: NA CHLORIDE 0.9% 1,000 ML ONE (19:07)
--- NOTE | 2023-01-01 20:02 | ER ---
Nurse's Notes [facility] Name: Jocy Claros Age: 22 yrs Sex: Female : 2000 Arrival Date: 01/01/2023 Time: 18:19 Bed 4 Private MD: Diagnosis: Headache Presentation: 01/01 18:23 Chief complaint: Patient states: headache to right congregational that started this morning. hb reports runny nose as well. 18:23 Method Of Arrival: Ambulatory hb 18:24 Coronavirus screen: At this time, the client does not indicate any symptoms associated hb with coronavirus-19. Ebola Screen: No symptoms or risks identified at this time. Initial Sepsis Screen: Does the patient meet any 2 criteria? No. Patient's initial sepsis screen is negative. Does the patient have a suspected source of infection? No. Patient's initial sepsis screen is negative. Risk Assessment: Do you want to hurt yourself or someone else? Patient reports no desire to harm self or others. Onset of symptoms was January 01, 2023. 18:24 Acuity: FILEMON 3 hb Historical: - Allergies: 18:25 No Known Allergies; hb - Home Meds: 18:25 testosterone cypionate intramuscular [Active]; Risperdal Oral [Active]; Invega Sustenna hb intramuscular [Active]; - PMHx: 18:25 Anxiety; Bipolar disorder; epilepsy; hb - PSHx: 18:25 None; hb - Immunization history:: Adult Immunizations up to date. - Social history:: Smoking status: Reported history of juuling and/or vaping. Screenin:40 [facility] ED Fall Risk Assessment (Adult) History of falling in the last 3 months, aa5 including since admission No falls in past 3 months (0 pts) Confusion or Disorientation No (0 pts) Intoxicated or Sedated No (0 pts) Impaired Gait No (0 pts) Mobility Assist Device Used No (0 pt) Altered Elimination No (0 pt) Score/Fall Risk Level 0 - 2 = Low Risk Oriented to surroundings, Maintained a safe environment, Educated pt \\T\\ family on fall prevention, incl call for assistance when getting out of bed. Abuse screen: Denies threats or abuse. Nutritional screening: No deficits noted. Tuberculosis screening: No symptoms or risk factors identified. Assessment: 18:45 General: Appears comfortable, Behavior is calm, cooperative. Pain: Complains of pain in aa5 forehead and right congregational Pain currently is 9 out of 10 on a pain scale. Quality of pain is described as aching, throbbing, Pain began today Is continuous. Neuro: Level of Consciousness is awake, alert, obeys commands, Oriented to person, place, time, situation, Deputy Court are equal bilaterally Moves all extremities. Gait is steady, Speech is normal, Facial symmetry appears normal, Pupils are PERRLA, Reports headache frontal area. Cardiovascular: Heart tones S1 S2 present Rhythm is regular. Respiratory: Airway is patent Respiratory effort is even, unlabored, Respiratory pattern is regular, symmetrical. GI: Abdomen is round non-distended, Bowel sounds present X 4 quads. Abd is soft and non tender X 4 quads. : No signs and/or symptoms were reported regarding the genitourinary system. EENT: Reports nasal discharge that is watery Pt states "I am pretty sure it's allergies". Pt denies feeling ill or recent illness. Derm: Skin is dry, Skin is normal, Skin temperature is warm. Musculoskeletal: Range of motion: intact in all extremities. 18:53 Reassessment: Pt refused swabs. FURNACE ROASTER notified. . aa5 19:52 General: Appears in no apparent distress. comfortable, Behavior is calm, cooperative. lg3 Pain: Complains of pain in right congregational Pain currently is 3 out of 10 on a pain scale. Quality of pain is described as aching, Alleviated by medications. Neuro: No deficits noted. Santana Agitation-Sedation Scale (RASS): 0 - Alert and Calm Level of Consciousness is awake, alert, obeys commands, Oriented to person, place, time, situation. Cardiovascular: No deficits noted. Denies chest pain, shortness of breath, Capillary refill < 3 seconds Clubbing of nail beds is absent JVD is absent Patient's skin is warm and dry. Respiratory: No deficits noted. Airway is patent Respiratory effort is even, unlabored, Respiratory pattern is regular, symmetrical. GI: No deficits noted. No signs and/or symptoms were reported involving the gastrointestinal system. : No deficits noted. No signs and/or symptoms were reported regarding the genitourinary system. EENT: No deficits noted. No signs and/or symptoms were reported regarding the EENT system. Derm: No deficits noted. No signs and/or symptoms reported regarding the dermatologic system. Skin is intact, is healthy with good turgor, Skin is dry, Skin is normal, Skin temperature is warm. Musculoskeletal: No deficits noted. No signs and/or symptoms reported regarding the musculoskeletal system. Circulation, motion, and sensation intact. Range of motion: intact in all extremities. Vital Signs: 18:24 BP 124 / 79; Pulse 71; Resp 16; Temp 98.2(TE); Pulse Ox 98% on R/A; Weight 94.35 kg; hb Height 5 ft. 8 in. ; Pain 9/10; 19:52 BP 122 / 84; Pulse 68; Resp 15 S; Pulse Ox 99% on R/A; Pain 3/10; lg3 20:29 BP 143 / 82; Pulse 63; Resp 16; Pulse Ox 100% on R/A; Pain 0/10; km8 18:24 Body Mass Index 31.63 (94.35 kg, 172.72 cm) hb 18:24 Pain Scale: Adult hb 19:52 Pain Scale: Adult lg3 20:29 Pain Scale: Adult km8 Artemio Coma Score: 21:09 Eye Response: spontaneous(4). Motor Response: obeys commands(6). Verbal Response: kb oriented(5). Total: 15. ED Course: 18:21 Patient arrived in ED. mr 18:22 Becky Carr, OLAYINKA [facility] kb 18:22 Daniel Velasco MD is Attending Physician. kb 18:25 Triage completed. hb 18:27 Arm band placed on. hb 18:40 Patient has correct armband on for positive identification. Bed in low position. Call aa5 light in reach. Side rails up X 1. Pulse ox on. NIBP on. 18:47 Inserted saline lock: 22 gauge in left antecubital area, using aseptic technique. aa5 18:52 Nneka Alex, RN is Primary Nurse. aa5 19:17 Primary Nurse role handed off by Nneka Alex, NICOLE km8 19:17 Marleni Ward, NICOLE is Primary Nurse. km8 19:52 Door closed. Noise minimized. Warm blanket given. lg3 19:52 Patient maintains SpO2 saturation greater than 95% on room air. lg3 20:39 No provider procedures requiring assistance completed. IV discontinued, intact, km8 bleeding controlled, No redness/swelling at site. Pressure dressing applied. Administered Medications: 09:02 Drug: diphenhydrAMINE IVP 12.5 mg IVP once Route: IVP; Site: left antecubital; rs5 19:50 Follow up: Response: No adverse reaction lg3 19:02 Drug: NS 0.9% IV 1000 ml IV at 1000 ml once Route: IV; Rate: 1000 ml; Site: left rs5 antecubital; 19:46 Follow up: Response: No adverse reaction; IV Status: Completed infusion; IV Intake: lg3 1000ml 19:02 Drug: metoCLOPramide IVP 10 mg IVP once; over 1 to 2 minutes Route: IVP; Site: left rs5 antecubital; 19:47 Follow up: Response: No adverse reaction lg3 19:02 Drug: Ketorolac IVP 15 mg IVP once Route: IVP; Site: left antecubital; rs5 19:50 Follow up: Response: No adverse reaction lg3 19:02 Drug: Decadron - Dexamethasone IVP 10 mg IVP once Route: IVP; Site: left antecubital; rs5 19:50 Follow up: Response: No adverse reaction lg3 Medication: 20:39 VIS not applicable for this client. km8 Intake: 19:46 IV: 1000ml; Total: 1000ml. lg3 Outcome: 20:01 Discharge ordered by MD. hughes 20:39 Discharged to home ambulatory, km8 20:39 Condition: good 20:39 Discharge instructions given to patient, Instructed on discharge instructions, follow up and referral plans. Demonstrated understanding of instructions, follow-up care, 20:40 Patient left the ED. km8 Signatures: Becky Carr, CREPING MACHINE OPERATOR HELPER-C CREPING MACHINE OPERATOR HELPER-Desiree Brady, [facility] Reg mr AlexNneka, RN RN aa5 Rola Chauhan RN RN Miriam Pugh RN RN lg3 Sarath Joshua RN RN rs5 Marleni Ward RN RN km8
--- NOTE | 2023-01-01 20:02 | EDPHYS ---
Physician Documentation [facility] Name: Jocy Claros Age: 22 yrs Sex: Female : 2000 Arrival Date: 01/01/2023 Time: 18:19 Bed 4 Private MD: ED Physician Daniel Velasco HPI: 01/01 21:10 This 22 yrs old Black Female presents to ER via Ambulatory with complaints of Headache. kb 21:10 The patient complains of pain to the right sikh. The patient describes the headache kb as constant. Onset: The symptoms/episode began/occurred this morning. Associated signs and symptoms: The patient has no apparent associated signs or symptoms. Severity of symptoms: At its worst the pain was moderate, in the emergency department the pain is unchanged. Headache History: The patient has had previous headaches and this one is similar to previous episodes. The symptoms are alleviated by nothing. the symptoms are aggravated by nothing. The patient has not experienced similar symptoms in the past. The patient has not recently seen a physician. Historical: - Allergies: 18:25 No Known Allergies; hb - Home Meds: 18:25 testosterone cypionate intramuscular [Active]; Risperdal Oral [Active]; Invega Sustenna hb intramuscular [Active]; - PMHx: 18:25 Anxiety; Bipolar disorder; epilepsy; hb - PSHx: 18:25 None; hb - Immunization history:: Adult Immunizations up to date. - Social history:: Smoking status: Reported history of juuling and/or vaping. ROS: 21:09 Constitutional: Negative for fever, chills, and weight loss, kb 21:09 Neuro: Positive for headache, 21:09 All other systems are negative, Exam: 21:09 Constitutional: This is a well developed, well nourished patient who is awake, alert, kb and in no acute distress. Head/Face: Normocephalic, atraumatic. Eyes: Pupils equal round and reactive to light, extra-ocular motions intact. Lids and lashes normal. Conjunctiva and sclera are non-icteric and not injected. Cornea within normal limits. Periorbital areas with no swelling, redness, or edema. ENT: Moist Mucous membranes Cardiovascular: Regular rate Respiratory: Respirations even and unlabored. No increased work of breathing. Talking in full sentences Abdomen/GI: Soft, non-tender. No distention Skin: Warm, dry with normal turgor. Normal color. MS/ Extremity: Pulses equal, no cyanosis. Neurovascular intact. Full, normal range of motion. Neuro: Awake and alert, GCS 15, oriented to person, place, time, and situation. Moves all extremities. Normal gait. Vital Signs: 18:24 BP 124 / 79; Pulse 71; Resp 16; Temp 98.2(TE); Pulse Ox 98% on R/A; Weight 94.35 kg; hb Height 5 ft. 8 in. ; Pain 9/10; 19:52 BP 122 / 84; Pulse 68; Resp 15 S; Pulse Ox 99% on R/A; Pain 3/10; lg3 20:29 BP 143 / 82; Pulse 63; Resp 16; Pulse Ox 100% on R/A; Pain 0/10; km8 18:24 Body Mass Index 31.63 (94.35 kg, 172.72 cm) hb 18:24 Pain Scale: Adult hb 19:52 Pain Scale: Adult lg3 20:29 Pain Scale: Adult km8 [place] Coma Score: 21:09 Eye Response: spontaneous(4). Motor Response: obeys commands(6). Verbal Response: kb oriented(5). Total: 15. MDM: 18:26 Patient medically screened. kb 21:09 Differential diagnosis: cluster headache, migraine, sinusitis, tension headache. Data kb reviewed: vital signs, nurses notes. Test considered but Not performed: CT: CT considered but pt has no neuro deficits. Counseling: I had a detailed discussion with the patient and/or guardian regarding the historical points, exam findings, and any diagnostic results supporting the discharge/admit diagnosis, the need for outpatient follow up, a family practitioner, to return to the emergency department if symptoms worsen or persist or if there are any questions or concerns that arise at home. Response to treatment: the patient's symptoms have resolved after treatment, the patient's pain is gone. 01/01 18:27 Order name: IV Start; Complete Time: 18:52 kb Administered Medications: 09:02 Drug: diphenhydrAMINE IVP 12.5 mg IVP once Route: IVP; Site: left antecubital; rs5 19:50 Follow up: Response: No adverse reaction lg3 19:02 Drug: NS 0.9% IV 1000 ml IV at 1000 ml once Route: IV; Rate: 1000 ml; Site: left rs5 antecubital; 19:46 Follow up: Response: No adverse reaction; IV Status: Completed infusion; IV Intake: lg3 1000ml 19:02 Drug: metoCLOPramide IVP 10 mg IVP once; over 1 to 2 minutes Route: IVP; Site: left rs5 antecubital; 19:47 Follow up: Response: No adverse reaction lg3 19:02 Drug: Ketorolac IVP 15 mg IVP once Route: IVP; Site: left antecubital; rs5 19:50 Follow up: Response: No adverse reaction lg3 19:02 Drug: Decadron - Dexamethasone IVP 10 mg IVP once Route: IVP; Site: left antecubital; rs5 19:50 Follow up: Response: No adverse reaction lg3 Disposition Summary: 01/01/23 20:01 Discharge Ordered Notes: Location: Home kb Condition: Stable kb Diagnosis - Headache kb Followup: kb - With: Emergency Department - When: As needed - Reason: Worsening of condition Followup: kb - With: Private Physician - When: 2 - 3 days - Reason: Recheck today's complaints, Continuance of care, Re-evaluation by your physician Discharge Instructions: - Discharge Summary Sheet kb - General Headache Without Cause, Hdht-bh-Hqeh kb Forms: - Work release form kb - Medication Reconciliation Form kb - Thank You Letter kb - Antibiotic Education kb - Prescription Opioid Use kb - Patient Portal Instructions kb - Leadership Thank You Letter kb Addendum: 01/02/2023 22:07 Co-signature as Attending Physician, Daniel Velasco MD I reviewed the patient's care r t provided by the Advanced Practice Provider and agree with the diagnosis and treatment plan. Signatures: Dispatcher [employer] EDMS Becky Carr, ADOPTION SPECIALIST-C ADOPTION SPECIALIST-Ckb Rola Chauhan, NICOLE RN Daniel Velasco MD MD rt Sarath Joshua RN RN rs5 Miriam Pugh RN lg3 Corrections: (The following items were deleted from the chart) 01/01 18:57 18:28 Influenza Screen (A \T\ B)+BA.LAB.BRZ ordered. EDMS EDMS 18:57 18:28 SARS-COV-2 RT PCR+MOL.LAB.BRZ ordered. EDMS EDMS
[2023-01-01 20:49] VITALS: TEMP 98.2
[2023-01-01 21:01] VITALS: BP 143/82; O2SAT 100
== END 2023-01-01 20:40 | disposition home or self-care (01) ==
LOC: ER 18:19
DX: R51.9 Headache, unspecified (principal); F31.9 Bipolar disorder, unspecified
CPT/HCPCS: 96361; 96375; 96374; 99285; J2765; J1200; J1100; J7030

== ENCOUNTER 2023-01-19 11:53 | Emergency (ER) | payer OTHER ==
--- OUTSIDE RECORDS SUMMARY | 2023-01-19 11:56 | XMS REPORT | Continuity of Care Document ---
:2000 Author Organization [facility] t Address [address] [place] [address] Care Team Providers Name Role Phone Asked, No Pcp Primary Care Physician Unavailable ILANA HAWKINS Attending Clinician Unavailable Ilana Hawkins MD Attending Clinician TONI ALMARAZ Attending Clinician Unavailable TISH LONG Attending Clinician Unavailable KNOW, DOES_NOT Admitting Clinician Unavailable Payers Payer Name Policy Type Policy Number Effective Date Expiration Date S kim [facility] [id number] 2017 00:00:00 [facility] - [id number] [place] (MEDICAID REPLACEMENT - HMO) Problems Condition Condition Condition Status Onset Resolution Last Treating Co mments Source Name Details Category Date Date Treatment Clinician Date 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 5-25 ity [place] [facility] [address] [place] [address] 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 Social History Social Habit Start Date Stop Date Quantity Comments Source Sexual orientation [facility] History [facility]SC [facility] Alcohol Std Drinks Medica l [place] History [facility] Alcohol Binge Medical [facility] [facility] Gender identity [facility] History of tobacco Cigarette Smoker University of use [facility] Exposure to 2022-08-06 2022-08-16 Not sure [facility] SARS-CoV-2 (event) 00:00:00 15:09:00 [facility] Cigarette 2022-08-16 2022-08-16 University of pack-years 00:00:00 00:00:00 [facility] Tobacco use and 2022-08-16 2022-08-16 Smokeless Universit y of exposure 00:00:00 00:00:00 tobacco non-user [facility] Alcohol Comment 2019-05-20 2019-05-20 couple of times [...] alcohol (finding) History SDOH 2019-02-24 2019-02-24 1 [facility] Alcohol Frequency 00:00:00 00:00:00 [facility] Sex Assigned At [birth year] [facility] Smoking Status Start Date Stop Date Source Ex-smoker 2022-08-16 00:00:00 2022-08-16 00:00:00 [facility] [place] Smokes tobacco daily 2019-05-20 00:00:00 [facility] tobacco smoker 2019-02-24 00:00:00 [facility] Medications Ordered Filled Start Stop Current Ordering Indication Dosage Frequency Signature Comments Components Source Medication Medication Date Date Medication? Clinician (SIG) Name Name omeprazole Yes [id number] 40mg Take 1 Univers 40 mg 5-25 capsule by ity of capsule 00:00: mouth in [place] 00 the morning. Branch omeprazole Yes [id number] 40mg Take 1 Univers 40 mg 5-25 capsule by ity of capsule 00:00: mouth in [place] the . Branch DECARA Yes [id number] Take 1 Univers 1,250 mcg 5-16 capsule by ity of (50,000 00:00: mouth [place] unit) 00 weekly. Medical capsule Branch DECARA Yes [id number] Take 1 Univers 1,250 mcg 5-16 capsule by ity of (50,000 00:00: mouth [place] unit) 00 weekly. Medical capsule Branch traZODone Yes 1 (EACH) Univ ers 50 mg 5-15 BEDTIME ity of tablet 00:00: ( [place] 00 NEEDED) Medical NEEDED FOR Branch SLEEP ARIPiprazol Yes 5mg Take 1 Univ ers e 5 mg 5-15 tablet by ity of tablet 00:00: mouth at [place] 00 bedtime. Medical Branch traZODone Yes 1 (EACH) Univ ers 50 mg 5-15 BEDTIME ity of tablet 00:00: ( [place] 00 NEEDED) Medical NEEDED FOR Branch SLEEP ARIPiprazol Yes 5mg Take 1 Univ ers e 5 mg 5-15 tablet by ity of tablet 00:00: mouth at [place] 00 bedtime. Medical Branch risperiDONE 2022- No [...] tablet 51 (two) l times a day. levETIRAcet 2020-0 Yes 500mg Q.5D Take 500 M ethodi am (KEPPRA) 2-[address] 500 MG 22:58: mouth [facility] Hosp[facility] tablet 51 (two) l times a day. naproxen 2020-0 Yes 250mg Q.5D Take 250 Meth ml (NAPROSYN) 2-[address] 250 MG 22:58: mouth 2 Hospita tablet 51 (two) l times a day with meals. naproxen 2020-0 Yes 250mg Q.5D Take 250 [...] blood 2022-08-16 20:14:00 118 mm[Hg] Univer sity [facility] Diastolic blood 2022-08-16 20:14:00 70 mm[Hg] Unive [facility] Heart rate 2022-08-16 20:14:00 76 /min [facility] Body temperature 2022-08-16 20:14:00 36.67 Trista [facility] Respiratory rate 2022-08-16 20:14:00 18 /min [facility] Body height 2022-08-16 20:14:00 172.7 cm [facility] Body weight 2022-08-16 20:14:00 86.773 kg [facility] BMI 2022-08-16 20:14:00 29.09 kg/m2 [facility] Oxygen saturation in 2022-08-16 20:14:00 99 /min [facility] Arterial blood by [facility] Pulse oximetry Branch Procedures This patient has no known procedures. Plan of Care Planned Activity Planned Date Details Comments Source Future Scheduled 2021-11-23 INFLUENZA VACCINE (#1) [facility] 00:[facility]00 [code = INFLUENZA Medical Ce nter VACCINE (#1)] Future Scheduled 2021-03-[address] [facility] Test 00:00:00 (12+) [code = [facility] DEPRESSION SCREENING (12+)] Future Scheduled [address] [facility] Test 00:00:00 (procedure) [code = [facility] [id number]] Future Scheduled 2020-01-29 DTAP/TDAP/TD VACCINES CH I [...] Clinicians Facility Department ID 2019-04-05 Inpatient [facility] [id number] [facility] 15:40:00 82 [facility] 2022-10-11 2022-10-11 Outpatient R [facility] [id number] Univers 10:20:00 10:20:00 , ILANA collins [facility] 2022-08-16 2022-08-16 Office [facility] [id number] Univers 15:40:00 15:53:34 Visit , Ilana [facility] [id number] ity Vince RAMÍREZ [id number] Malcolm as NANO?BLEA [id number] [address] MEDICAL OFFICE BUILDING 2022-08-16 2022-08-16 Outpatient R [facility] [id number] Univers 15:40:00 15:53:34 , ILANA collins [facility] 2021-06-05 2021-06-05 Outpatient PRIV PRIV [id number] [facility] 12:38:00 12:38:00 [id number] Medica l 2021-06-03 2021-06-03 Outpatient PRIV PRIV [id number] [id number] [facility] 06:48:00 06:48:00 [id number] Medica l 2021-05-27 2021-05-27 Outpatient PRIV PRIV [id number] 4-2 [facility] 07:06:00 07:06:00 [id number] Medica l 2021-05-27 2021-05-27 Outpatient PRIV PRIV [id number] 4-2 [facility] 07:06:00 07:06:00 [id number] Medica l 2019-05-20 2019-05-20 Emergency [facility] [id number] [address] [place] 00:00:00 00:00:[address] [place] [address] Results Test Description Test Time Test Comments Results Result [facility] e Comments - XR HAND 3 + V RT 2019-04-05 [place]: St: 18:07:00 REG Name: ALLI GUIDOH [place] : 2000 Age/S: 19/F [address] Unit #: [id number] Loc: [place] [address] Phys: Alfredo Jasso MD Acct: [id number] Dis Date: Status: REG ER PHONE #: [phone] Exam Date: 04/05/2019 1740 FAX #: [phone] Reason: [facility] wall EXAMS: CPT CODE: [id number] XR HAND 3 + V RT [id number] EXAM: Right wrist 3 views Location code: [...] the hand. PAGE 1 Signed Report (CONTINUED) [place]: St: REG Name: ALLI GUIDO [facility] : 2000 Age/S: 19/F [address] Unit #: [id number] Loc: [place] [address] Phys: Alfredo Jasso MD Acct: [id number] Dis Date: Status: REG ER PHONE #: [phone] Exam Date: 04/05/2019 1740 FAX #: [phone] Reason: [facility] EXAMS: CPT CODE: [id number] XR HAND 3 + V RT [id number] (Continued) IMPRESSION: Right hand 1. No acute osseous abnormality. 2. Soft tissue swelling along the dorsum of the hand. at 1807 Reported and signed by: Matthieu Salmeron MD CC: Technologist: Yisel Lin; CEASAR CNONELLY PAGE 2 Signed Report [place]: [facility]: REG Name: ALLI GUIDO [facility] : 2000 Age/S: 19/F [address] Unit #: [id number] Loc: [place] [address] Phys: Alfredo Jasso MD Acct: [id number] Dis Date: Status: [facility] ER PHONE #: [phone] Exam Date: 04/05/2019 174 FAX #: [phone] Reason: [facility] EXAMS: CPT CODE: [id number] XR HAND 3 + V RT [id number] (Continued) [facility] Date/Time/By: 04/05/2019 (1806) : By: [email or web address] PAGE 3 Signed Report - XR WRIST 3 + V 2019-04-05 [place]: [facility]: RT 18:07:00 REG Name: LATAALLI Epstein [facility] : 2000 Age/S: 19/F [address] Unit #: [id number] Loc: [place] [address] Phys: Alfredo Jasos MD Acct: [id number] Dis Date: Status: [facility] ER PHONE #: [phone] Exam Date: 04/05/2019 1740 FAX #: [phone] Reason: pain s/p [place] [facility] EXAMS: CPT CODE: [id number] XR WRIST 3 + V RT [id number] EXAM: Right wrist 3 views Location code: [...] the hand. PAGE 1 Signed Report (CONTINUED) [place]: St: REG Name: ALLI GUIDO [facility] : 2000 Age/S: 19/F [address] Unit #: [id number] Loc: [place] [address] Phys: Alfredo Jasso MD Acct: [id number] Dis Date: Status: REG ER PHONE #: [phone] Exam Date: 04/05/2019 1740 FAX #: [phone] Reason: pain s/p [place] [facility] EXAMS: CPT CODE: [id number] XR WRIST 3 + V RT [id number] (Continued) IMPRESSION: Right hand 1. No acute osseous abnormality. 2. Soft tissue swelling along the dorsum of the hand. at 1807 Reported and signed by: Matthieu Salmeron MD CC: Technologist: Corina Lin PAGE 2 Signed Report [place]: St: REG Name: ALLI GUIDO [facility] [place] : 2000 Age/S: 19/F [address] Unit #: [id number] Loc: [place] [address] Phys: Alfredo Jasso MD Acct: [id number] Dis Date: Status: REG ER PHONE #: [phone] Exam Date: 04/05/2019 4886 FAX #: [phone] Reason: pain s/p [place] [facility] EXAMS: CPT CODE: [id number] XR WRIST 3 + V RT 89953 (Continued) [facility] Date/Time/By: 04/05/2019 (1806) : By: [email or web address] PAGE [...] after 48 hours toconf irm . URINALYSIS [id number] 16:21:00 Test Item Value Reference Range Interpretation [...] /HPF 0-5 (RARE) = SQU) BASIC METABOLIC [id number] 16:20:00 Test Item Value Reference Range Interpretation [...] 8.9 mg/dL 8.4-10.2 N CA) CBC W/AUTO [id number] 16:11:00 Test Item Value Reference Range Interpretation [...] 0.02 x10 3/uL 0.0-0.1 N MR, BRAIN, [id number] 12:12:00Anesthesia:->NoneDeos the patient have an implanted electronic [...] etiology of seizure identified. Signed: Davon Gallegos Verified Date/Time: 02/25/2019 12:12:10 Reading Location: [facility] C013W Consult Reading Room RAPID DRUG SCREEN, [id number] 15:26:00 Test Item Value Reference Range Interpretation [...] situations. Chain of custody not maintained. Some ajwv-zzv-fesrcqu medications, as well as adulterants, may cause [...] m CALCULATE ESTIM ATED GFR. URINALYSIS W/ [id number] 14:29:00 Test Item Value Reference Range Interpretation [...] = 2795) CBC W/PLT COUNT & AUTO [id number] 14:22:00 Test Item Value Reference Range Interpretation [...] (test code = 2801) CT, BRAIN, WITHOUT [id number] 14:15:00Reason for exam:->seizure activityReason for exam:->h/o pseudoseizuresWhat [...] MDReport Verified Date/Time: 02/24/2019 14:15:38 Reading Location: [facility] C013V Neuro Reading Room Elec tronically signed by: DAVON GALLEGOS MD on 02/24/2019 02:15 PM
[2023-01-19] MEDS ORDERED: KETOROLAC 30 MG/ML INJ ONE (12:38)
[2023-01-19] MEDS ORDERED: METOCLOPRAMIDE 5 MG TAB ONE (12:38)
[2023-01-19 13:51] LABS: Specific Gravity > 1.030 (1.005-1.030)
[2023-01-19 13:56] LABS: Specific Gravity > 1.030 (1.005-1.030); Transitional Epithelial <5 /HPF (None Seen); Urine Bacteria 20-50 /HPF (<20); Urine Bilirubin NEGATIVE (Negative); Urine Blood 1+ (Negative); Urine Clarity Extremely Turbid (Clear); Urine Color Yellow (Yellow); Urine Glucose NEGATIVE (Negative); Urine Mucus 4+ /HPF (None Seen); Urine Protein 2+ (Negative); Urine RBC >50 /HPF (None Seen); Urine Urobilinogen 2+ (Normal)
--- NOTE | 2023-01-19 14:25 | ER ---
Nurse's Notes [facility] Name: Jocy Claros Age: 22 yrs Sex: Female : 2000 Arrival Date: 01/19/2023 Time: 11:53 Bed DIS1 Private MD: Diagnosis: UTI/ Urinary tract infection, site not specified Presentation: 01/19 12:17 Chief complaint: Fever, headache, sinus congestion, nausea, and pain with urination x 2 hb days. Coronavirus screen: At this time, the client does not indicate any symptoms associated with coronavirus-19. Ebola Screen: No symptoms or risks identified at this time. 12:17 Method Of Arrival: Ambulatory hb 12:18 Initial Sepsis Screen: Does the patient meet any 2 criteria? No. Patient's initial hb sepsis screen is negative. Does the patient have a suspected source of infection? No. Patient's initial sepsis screen is negative. Risk Assessment: Do you want to hurt yourself or someone else? Patient reports no desire to harm self or others. Onset of symptoms was January 17, 2023. 12:18 Acuity: FILEMON 4 hb Historical: - Allergies: 12:18 No Known Allergies; hb - Home Meds: 12:18 Invega Sustenna intramuscular [Active]; Risperdal Oral [Active]; testosterone cypionate hb intramuscular [Active]; - PMHx: 12:18 Anxiety; Bipolar disorder; epilepsy; hb 14:51 Transitioning from female to male; jl7 - PSHx: 12:18 None; hb - Immunization history:: Adult Immunizations up to date. - Social history:: Smoking status: Patient denies any tobacco usage or history of. Screenin:49 [facility] ED Fall Risk Assessment (Adult) Score/Fall Risk Level 0 - 2 = Low Risk jl7 Oriented to surroundings, Maintained a safe environment. Abuse screen: Denies threats or abuse. Denies injuries from another. Nutritional screening: No deficits noted. Tuberculosis screening: No symptoms or risk factors identified. Vital Signs: 12:17 BP 121 / 71; Pulse 76; Resp 16; Temp 99; Pulse Ox 98% on R/A; Weight 90.72 kg; Height 5 hb ft. 8 in. ; Pain 8/10; 12:17 Body Mass Index 30.41 (90.72 kg, 172.72 cm) hb 12:17 Pain Scale: Adult hb ED Course: 11:55 Patient arrived in ED. im 11:59 Ramon Gonzalez MD is Attending Physician. ec2 12:18 Arm band placed on. hb 12:19 Triage completed. hb 14:42 Corona Guerrero, RN is Primary Nurse. jl7 14:49 Patient has correct armband on for positive identification. Provided Education on: use jl7 of medication. 14:49 No provider procedures requiring assistance completed. Patient did not have IV access jl7 during this emergency room visit. Administered Medications: 12:29 Drug: Ketorolac IM 30 mg IM once Route: IM; Site: right deltoid; hb 14:49 Follow up: Response: No adverse reaction jl7 12:29 Drug: MetoCLOPramide PO 10 mg PO once Route: PO; hb 14:49 Follow up: Response: No adverse reaction jl7 14:48 Drug: Cephalexin PO 500 mg PO once Route: PO; jl7 14:49 Follow up: Response: Medication administered at discharge. jl7 Medication: 14:49 VIS not applicable for this client. jl7 Outcome: 14:24 Discharge ordered by . ec2 14:49 Discharged to home ambulatory, jl7 14:49 Condition: stable 14:49 Discharge instructions given to patient, Instructed on discharge instructions, follow up and referral plans. medication usage, Demonstrated understanding of instructions, follow-up care, medications, Prescriptions given X 1, 14:53 Patient left the ED. jl7 Signatures: Rola Chauhan RN RN Corona Guerrero, NICOLE RIVERA jl7 Gabrielle Geiger Ramon Gonzalez MD MD ec2 Corrections: (The following items were deleted from the chart) 12:20 12:17 BP 121 / 71; Pulse 76bpm; Resp 16bpm; Pulse Ox 98% RA; Temp 99F; hb hb 14:53 14:52 LMP N/A - transgender, Not jl7 jl7
--- NOTE | 2023-01-19 14:25 | EDPHYS ---
Physician Documentation [facility] Name: Jocy Claros Age: 22 yrs Sex: Female : 2000 Arrival Date: 01/19/2023 Time: 11:53 Bed DIS1 Private MD: ED Physician Ramon Gonzalez HPI: 01/19 12:21 This 22 yrs old Black Female presents to ER via Ambulatory with complaints of Pain With ec2 Urination, Urinary Retention, Fever. 12:21 Patient arrives today due to concern for dysuria as well as cough and cold symptoms. ec2 Patient is having subjective fevers and chills with associated increased urinary frequency and discomfort. Some associated nausea as well as headache, no vomiting, no diarrhea, no abdominal pain. Patient with no medical problems.. Historical: - Allergies: 12:18 No Known Allergies; hb - Home Meds: 12:18 Invega Sustenna intramuscular [Active]; Risperdal Oral [Active]; testosterone cypionate hb intramuscular [Active]; - PMHx: 12:18 Anxiety; Bipolar disorder; epilepsy; hb 14:51 Transitioning from female to male; jl7 - PSHx: 12:18 None; hb - Immunization history:: Adult Immunizations up to date. - Social history:: Smoking status: Patient denies any tobacco usage or history of. ROS: 12:21 Constitutional: as per hpi ec2 Exam: 12:21 Constitutional: GEN: NAD Head: atraumatic Eyes: EOMI Ears: External ears are ec2 normal. CV: regular rate LUNGS: no respiratory distress ABD: non-distended, soft, nontender, no guarding, not rigid, negative flanks bilaterally. SKIN: no evidence of rashes MSK: no evidence of trauma NEURO: moves all extremities equally Vital Signs: 12:17 BP 121 / 71; Pulse 76; Resp 16; Temp 99; Pulse Ox 98% on R/A; Weight 90.72 kg; Height 5 hb ft. 8 in. ; Pain 8/10; 12:17 Body Mass Index 30.41 (90.72 kg, 172.72 cm) hb 12:17 Pain Scale: Adult hb MDM: 11:59 Patient medically screened. ec2 12:21 ED course: Patient arrives today due to concern for cough and cold symptoms as well as ec2 dysuria. Examination remarkable for well-appearing nontoxic dividual is otherwise in no acute distress with a benign abdomen. From a cough and cold symptom perspective I suspect she has a viral process, I do not feel viral swabs will be beneficial in this setting. From a urinary standpoint I will send urine studies to evaluate for UTI.. 14:24 ED course: Urine is infectious appearing. We will start the patient on antibiotics and ec2 discharged home. Return precautions given. . 14:27 Data reviewed: vital signs. ec2 01/19 11:59 Order name: Urinalysis w/ reflexes; Complete Time: 14:24 ec2 01/19 11:59 Order name: Test, Urine; Complete Time: 14:24 ec2 01/19 14:00 Order name: Urine Culture EDMS Administered Medications: 12:29 Drug: Ketorolac IM 30 mg IM once Route: IM; Site: right deltoid; hb 14:49 Follow up: Response: No adverse reaction jl 12:29 Drug: MetoCLOPramide PO 10 mg PO once Route: PO; hb 14:49 Follow up: Response: No adverse reaction jl 14:48 Drug: Cephalexin PO 500 mg PO once Route: PO; jl 14:49 Follow up: Response: Medication administered at discharge. jl7 Disposition Summary: 01/19/23 14:24 Discharge Ordered Notes: Location: Home ec2 Condition: Stable ec2 Diagnosis - UTI/ Urinary tract infection, site not specified ec2 Discharge Instructions: - Discharge Summary Sheet ec2 - Urinary Tract Infection, Adult ec2 Forms: - Work release form ec2 - Medication Reconciliation Form ec2 - Thank You Letter ec2 - Antibiotic Education ec2 - Prescription Opioid Use ec2 - Patient Portal Instructions ec2 - Leadership Thank You Letter ec2 Prescriptions: - Cephalexin 500 mg Oral Capsule - take 1 capsule ORAL route every 12 hours for 10 days; 20 capsule; Refills: 0, ec2 Product Selection Permitted Signatures: Dispatcher [employer] Rola Malcolm RN RN Corona Guerrero RN RN jl7 Ramon Gonzalez MD MD ec2
[2023-01-19 14:57] VITALS: BP 121/71; TEMP 99; O2SAT 98
[2023-01-19] MEDS ORDERED: CEPHALEXIN 250 MG CAP ONE (14:59)
== END 2023-01-19 14:53 | disposition home or self-care (01) ==
LOC: ER 11:53
DX: N39.0 Urinary tract infection, site not specified (principal); F31.9 Bipolar disorder, unspecified
CPT/HCPCS: 81001; 81025; 87086; 87088; 96372; 99284

== ENCOUNTER 2023-01-22 15:38 | Emergency (ER) | payer OTHER ==
--- OUTSIDE RECORDS SUMMARY | 2023-01-22 15:42 | XMS REPORT | Continuity of Care Document ---
:2000 Author Organization [facility] t Address [address] [place] [address] Care Team Providers Name Role Phone Asked, No Pcp Primary Care Physician Unavailable ILANA SIMEON Attending Clinician Unavailable Ilana Simeon MD Attending Clinician TONI ALMARAZ Attending Clinician Unavailable TISH LONG Attending Clinician Unavailable KNOW, DOES_NOT Admitting Clinician Unavailable Payers Payer Name Policy Type Policy Number Effective Date Expiration Date Reanna alvarez [facility] [id number] 2017 00:00:00 [facility] - [id number] [place] (MEDICAID REPLACEMENT - HMO) Problems Condition Condition Condition Status Onset Resolution Last Treating Co mments Source Name Details Category Date Date Treatment Clinician Date 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 5-25 ity [place] [facility] [place] [address] [place] [address] 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 00:00: [address] Eating Eating Disease Active Univers disorder disorder 5-25 ity of 00:00: [address] LOC (loss LOC (loss Disease Recurre 2018-[address] [facility]04 [facility] conscious[facility] consciousn [facility]:00: Me dical ess) ess) 00 Center Anxiety Anxiety Disease Active 2018-[address] [facility] 00[facility] Medical [facility] Center Seizure-li Seizure-li Disease Recurre 2018-[address] ke ke tne 2[facility]03 [facility] activity activity 00:00: Medica l 00 Center Allergies, Adverse Reactions, Alerts Allergy Allergy Status Severity Reaction(s) Onset Inactive Treating Comm ents Source Name Type Date Date Clinician No Known DA Active [facility] No Known DA Active U [facility] 12-20 [facility] 00:00: d 00 [facility] NO KNOWN Drug Active Univers ALLERGIE Class ity of S [facility] Social History Social Habit Start Date Stop Date Quantity Comments Source Sexual orientation Method ist Hospital History SDOH [facility] Alcohol Std Drinks Medica l Salters History SDOH [facility] Alcohol Binge [facility] Gender identity [facility] History of tobacco Cigarette Smoker University of use [facility] Exposure to 2022-08-06 2022-08-16 Not sure [facility] SARS-CoV-2 (event) 00:00:00 15:09:00 [facility] Cigarette 2022-08-16 2022-08-16 University of pack-years 00:00:00 00:00:00 [facility] Tobacco use and 2022-08-16 2022-08-16 Smokeless Universit y of exposure 00:00:00 00:00:00 tobacco non-user [facility] Alcohol Comment 2019-05-20 2019-05-20 couple of times [...] [facility] Alcohol Frequency 00:00:00 00:00:00 [facility] Center Sex Assigned At [birth year] [facility] 00:00:00 00:00:00 Hospital Smoking Status Start Date Stop Date Source Ex-smoker 2022-08-16 00:00:00 2022-08-16 00:00:00 [facility] [place] Smokes tobacco daily 2019-05-20 00:00:00 [facility] Light tobacco smoker 2019-02-24 00:00:00 [facility] Medications Ordered Filled Start Stop Current Ordering Indication Dosage Frequency Signature Comments Components Source Medication Medication Date Date Medication? Clinician (SIG) Name Name omeprazole Yes [id number] 40mg Take 1 Univers 40 mg 5-25 capsule by ity of capsule 00:00: mouth in [place] 00 the Medical morning. Branch omeprazole Yes [id number] 40mg Take 1 Univers 40 mg 5-25 capsule by ity of capsule 00:00: mouth in [place] the . Branch DECARA Yes [id number] Take 1 Univers 1,250 mcg 5-16 capsule by ity of (50,000 00:00: mouth [place] unit) 00 weekly. Medical capsule Branch DECARA Yes [id number] Take 1 Univers 1,250 mcg 5-16 capsule by ity of (50,000 00:00: mouth [place] unit) 00 weekly. Medical capsule Branch traZODone Yes 1 (EACH) Univ ers 50 mg 5-15 BEDTIME ity of tablet 00:00: ( [place] 00 NEEDED) Medical NEEDED FOR Branch SLEEP ARIPiprazol Yes 5mg Take 1 Univ ers e 5 mg 5-15 tablet by ity of tablet 00:00: mouth at [place] 00 bedtime. Medical Branch traZODone Yes 1 (EACH) Univ ers 50 mg 5-15 BEDTIME ity of tablet 00:00: ( [place] 00 NEEDED) Medical NEEDED FOR Branch SLEEP ARIPiprazol Yes 5mg Take 1 Univ ers e 5 mg 5-15 tablet by ity of tablet 00:00: mouth at [place] 00 bedtime. Medical Branch risperiDONE 2022- No [...] 20:14:00 118 mm[Hg] Univer sity of pressure [facility] Diastolic blood 2022-08-16 20:14:00 70 mm[Hg] Unive rsity of [facility] Heart rate 2022-08-16 20:14:00 76 /min [facility] Body temperature 2022-08-16 20:14:00 36.67 [facility] Respiratory rate 2022-08-16 20:14:00 18 /min [facility] Body height 2022-08-16 20:14:00 172.7 cm [facility] Body weight 2022-08-16 20:14:00 86.773 kg [facility] BMI 2022-08-16 20:14:00 29.09 kg/m2 [facility] Oxygen saturation in 2022-08-16 20:14:00 99 /min [facility] Arterial blood by [facility] Pulse oximetry Branch Procedures This patient has [...] Test 00:00:00 (procedure) [code = Medical Center 44209965] Future Scheduled 2020-01-29 DTAP/TDAP/TD VACCINES CH I [...] Facility Department ID 2019-04-05 Inpatient [facility] KARINA [id number] [facility] 15:40:00 82 [facility] 2022-10-11 2022-10-11 Outpatient R [facility] [id number] Univers 10:20:00 10:20:00 , ILANA [facility] 2022-08-16 2022-08-16 Office [facility] [id number] Univers 15:40:00 15:53:34 Visit , Ilana [facility] [id number] ity Vince RAMÍREZ [id number] Malcolm as NANO?BLEA [id number] [address] MEDICAL OFFICE BUILDING 2022-08-16 2022-08-16 Outpatient R [facility] [id number] Univers 15:40:00 15:53:34 , ILANA [facility] 2021-06-05 2021-06-05 Outpatient PRIV PRIV [id number] [facility] 12:38:00 12:38:00 [id number] Medica l 2021-06-03 2021-06-03 Outpatient PRIV PRIV [id number] 4-2 [facility] 06:48:00 06:48:00 [id number] Medica l 2021-05-27 2021-05-27 Outpatient PRIV PRIV [id number] 4-2 [facility] 07:06:00 07:06:00 [id number] Medica l 2021-05-27 2021-05-27 Outpatient PRIV PRIV [id number] [id number] [facility] 07:06:00 07:06:00 [id number] Medica l 2019-05-20 2019-05-20 Emergency [facility] [id number] [place] 00:00:00 00:00:[address] [place] [address] Results Test Description Test Time Test Comments Results Result Sourc e Comments - XR HAND 3 + V RT 2019-04-05 [place]: St: 18:07:00 REG Name: ALLI GUIDOwood : 2000 Age/S: 19/F [address] Unit #: [id number] Loc: [place] [address] Phys: Alfredo Jasso MD Acct: [id number] Dis Date: Status: REG ER PHONE #: [phone] Exam Date: 04/05/2019 174 FAX #: [phone] Reason: puncehd wall EXAMS: CPT CODE: [id number] XR HAND 3 + V RT [id number] EXAM: Right wrist 3 views Location code: [...] the hand. PAGE 1 Signed Report (CONTINUED) [place]: [facility]: REG Name: ALLI GUIDO : 2000 Age/S: 19/F [address] Unit #: [id number] Loc: [place] [address] Phys: Alfredo Jasso MD Acct: [id number] Dis Date: Status: REG ER PHONE #: [phone] Exam Date: 04/05/20191739 FAX #: [phone] Reason: punce wall EXAMS: CPT CODE: [id number] XR HAND 3 + V RT 33455 (Continued) IMPRESSION: Right hand 1. No acute osseous abnormality. 2. Soft tissue swelling along the dorsum of the hand. at 1807 Reported and signed by: Matthieu Salmeron MD CC: Technologist: Yisel Lin; CEASAR CONNELLY PAGE 2 Signed Report [place]: [facility]: REG Name: ALLI GUIDO [facility] : 2000 Age/S: 19/F [address] Unit #: [id number] Loc: [place] [address] Phys: Alfredo Jasso MD Acct: [id number] Dis Date: Status: [facility] ER PHONE #: [phone] Exam Date: 04/05/20191739 FAX #: [phone] Reason: [facility] wall EXAMS: CPT CODE: [id number] XR HAND 3 + V RT 40020 (Continued) [facility] Date/Time/By: 04/05/2019 (1806) : By: [email or web address] PAGE 3 Signed Report - XR WRIST 3 + V 2019-04-05 [place]: St: RT 18:07:00 REG Name: ALLI GUIDO [facility] : 2000 Age/S: 19/F [address] Unit #: [id number] Loc: [place] [address] Phys: Alfredo Jasso MD Acct: [id number] Dis Date: Status: [facility] ER PHONE #: [phone] Exam Date: 04/05/2019 1740 FAX #: [phone] Reason: pain s/p [place] wall EXAMS: CPT CODE: [id number] XR WRIST 3 + V RT [id number] EXAM: Right wrist 3 views Location code: [...] the hand. PAGE 1 Signed Report (CONTINUED) [place]: St: REG Name: ALLI GUIDO [facility] : 2000 Age/S: 19/F [address] Unit #: [id number] Loc: [place] [address] Phys: Alfredo Jasso MD Acct: [id number] Dis Date: Status: [facility] ER PHONE #: [phone] Exam Date: 04/05/2019 1740 FAX #: [phone] Reason: pain s/p [place] wall EXAMS: CPT CODE: [id number] XR WRIST 3 + V RT [id number] (Continued) IMPRESSION: Right hand 1. No acute osseous abnormality. 2. Soft tissue swelling along the dorsum of the hand. at 1807 Reported and signed by: Matthieu Salmeron MD CC: Technologist: Yisel Lin; CEASAR CONNELLY PAGE 2 Signed Report [place]: St: REG Name: ALLI GUIDO [facility] : 2000 Age/S: 19/F [address] Unit #: [id number] Loc: [place] [address] Phys: Alfredo Jasso MD Acct: [id number] Dis Date: Status: REG ER PHONE #: [phone] Exam Date: 04/05/2019 1740 FAX #: [phone] Reason: pain s/p [place] wall EXAMS: CPT CODE: [id number] XR WRIST 3 + V RT 31473 (Continued) Trnscrd Date/Time/By: 04/05/2019 (1806) : By: [email or web address] PAGE [...] after 48 hours toconf irm . URINALYSIS [id number] 16:21:00 Test Item Value Reference Range Interpretation [...] /HPF 0-5 (RARE) = SQU) BASIC METABOLIC [id number] 16:20:00 Test Item Value Reference Range Interpretation [...] 8.9 mg/dL 8.4-10.2 N CA) CBC W/AUTO [id number] 16:11:00 Test Item Value Reference Range Interpretation [...] 0.02 x10 3/uL 0.0-0.1 N MR, BRAIN, [id number] 12:12:00Anesthesia:->NoneDeos the patient have an implanted electronic [...] MDReport Verified Date/Time: 02/25/2019 12:12:10 Reading Location: [address] Consult Reading Room RAPID DRUG SCREEN, [id number] 15:26:00 Test Item Value Reference Range Interpretation [...] situations. Chain of custody not maintained. Some ztsk-loh-lppinzr medications, as well as adulterants, may cause [...] m CALCULATE ESTIM ATED GFR. URINALYSIS W/ [id number] 14:29:00 Test Item Value Reference Range Interpretation [...] = 2795) CBC W/PLT COUNT & AUTO [id number] 14:22:00 Test Item Value Reference Range Interpretation [...] (test code = 2801) CT, BRAIN, WITHOUT [id number] 14:15:00Reason for exam:->seizure activityReason for exam:->h/o pseudoseizuresWhat [...] recommended for further characterization. Signed: Davon Turner Verified Date/Time: 02/24/2019 14:15:38 Reading Location: [facility] C013 Neuro Reading Room Elec tronically signed by: DAVON TURNER MD on 02/24/2019 02:15 PM
--- NOTE | 2023-01-22 17:11 | EDPHYS ---
Physician Documentation [facility] Name: Jocy Claros Age: 22 yrs Sex: Female : 2000 Arrival Date: 01/22/2023 Time: 15:38 Bed IW2 Private MD: ED Physician Dylon Turner HPI: 01/22 17:20 This 22 yrs old Black Female presents to ER via Ambulatory with complaints of Pain With snw Urination. 17:20 The patient's rash thought to be caused by Dermatitis. The rash is located on the groin snw bilaterally. The rash can be described as erythematous, papular, patchy. Onset: The symptoms/episode began/occurred acutely. Associated signs and symptoms: Pertinent positives: burning sensation, itching. Severity of symptoms: At their worst the symptoms were moderate. The patient has not experienced similar symptoms in the past. The patient has been recently seen by a physician: The patient has been recently seen at the [facility] Emergency Department, this week, for unrelated complaints, started abx for UTI, fever resolved but pt with rash to groin. Historical: - Allergies: 15:53 No Known Allergies; jl7 - Home Meds: 15:55 Invega Sustenna intramuscular [Active]; Risperdal Oral [Active]; testosterone cypionate jl7 intramuscular [Active]; - PMHx: 15:53 Anxiety; Bipolar disorder; epilepsy; Transitioning from female to male; jl7 - Immunization history:: Adult Immunizations up to date. - Social history:: Smoking status: Patient denies any tobacco usage or history of. ROS: 16:49 Constitutional: Negative for fever, chills, and weight loss, Eyes: Negative for injury, snw pain, redness, and discharge, ENT: Negative for injury, pain, and discharge, Neck: Negative for injury, pain, and swelling, Cardiovascular: Negative for chest pain, palpitations, and edema, Respiratory: Negative for shortness of breath, cough, wheezing, and pleuritic chest pain, Abdomen/GI: Negative for abdominal pain, nausea, vomiting, diarrhea, and constipation, Back: Negative for injury and pain, : Negative for injury, bleeding, discharge, and swelling, MS/Extremity: Negative for injury and deformity, Neuro: Negative for headache, weakness, numbness, tingling, and seizure, Psych: Negative for depression, anxiety, suicide ideation, homicidal ideation, and hallucinations, 16:49 Skin: Positive for rash, tx for UTI 48 hours ago, no fever today, + red, raised, pruritic rash to perineum, Exam: 15:59 Constitutional: This is a well developed, well nourished patient who is awake, alert, snw and in no acute distress. Head/Face: Normocephalic, atraumatic. Eyes: Pupils equal round and reactive to light, extra-ocular motions intact. Lids and lashes normal. Conjunctiva and sclera are non-icteric and not injected. Cornea within normal limits. Periorbital areas with no swelling, redness, or edema. Neck: Trachea midline, no thyromegaly or masses palpated, and no cervical lymphadenopathy. Supple, full range of motion without nuchal rigidity, or vertebral point tenderness. No Meningismus. Chest/axilla: Normal chest wall appearance and motion. Nontender with no deformity. No lesions are appreciated. Cardiovascular: Regular rate and rhythm with a normal S1 and S2. No gallops, murmurs, or rubs. Normal PMI, no JVD. No pulse deficits. Respiratory: Lungs have equal breath sounds bilaterally, clear to auscultation and percussion. No rales, rhonchi or wheezes noted. No increased work of breathing, no retractions or nasal flaring. Abdomen/GI: Soft, non-tender, with normal bowel sounds. No distension or tympany. No guarding or rebound. No evidence of tenderness throughout. Back: No spinal tenderness. No costovertebral tenderness. Full range of motion. MS/ Extremity: Pulses equal, no cyanosis. Neurovascular intact. Full, normal range of motion. Neuro: Awake and alert, GCS 15, oriented to person, place, time, and situation. Cranial nerves II-XII grossly intact. Motor strength 5/5 in all extremities. Sensory grossly intact. Cerebellar exam normal. Normal gait. Psych: Awake, alert, with orientation to person, place and time. Behavior, mood, and affect are within normal limits. 15:59 Skin: Appearance: normal except for affected area, grisel, Vital Signs: 15:51 BP 116 / 71; Pulse 87; Resp 16; Temp 98.5; Pulse Ox 98% on R/A; Weight 90.72 kg; Height jl7 5 ft. 8 in. ; Pain 10; 15:51 Body Mass Index 30.41 (90.72 kg, 172.72 cm) [facility] 15:51 Pain Scale: Adult jl7 MDM: 15:58 Patient medically screened. snw 17:21 Differential diagnosis: grisel, uti. Data reviewed: vital signs, nurses notes. I snw considered the following discharge prescriptions or medication management in the emergency department Medications were administered in the Emergency Department. See MAR. Counseling: I had a detailed discussion with the patient and/or guardian regarding the historical points, exam findings, and any diagnostic results supporting the discharge/admit diagnosis, the need for outpatient follow up, for definitive care, to return to the emergency department if symptoms worsen or persist or if there are any questions or concerns that arise at home. Special discussion: Based on the history and exam findings, there is no indication for further emergent testing or inpatient evaluation. I discussed with the patient/guardian the need to see the primary care provider for further evaluation of the symptoms. Administered Medications: 17:34 Drug: Fluconazole PO 200 mg PO once Route: PO; cp4 Disposition Summary: 01/22/23 17:11 Discharge Ordered Notes: Continue antibiotics for urinary infection Location: Home snw Condition: Stable snw Diagnosis - Candidiasis, unspecified snw Followup: snw - With: Emergency Department - When: As needed - Reason: Worsening of condition Followup: snw - With: Private Physician - When: As needed - Reason: Worsening of condition Discharge Instructions: - Discharge Summary Sheet snw - Skin Yeast Infection snw Forms: - Work release form snw - Medication Reconciliation Form snw - Thank You Letter snw - Antibiotic Education snw - Prescription Opioid Use snw - Patient Portal Instructions snw - Leadership Thank You Letter snw Prescriptions: - Fluconazole 200 mg Oral tablet - take 1 tablet ORAL route once wkly; 2 tablet; Refills: 0, Product Selection snw Permitted Addendum: 01/25/2023 07:00 Co-signature as Attending Physician, Dylon Turner MD I reviewed the patient's care r n provided by the Advanced Practice Provider and agree with the diagnosis and treatment plan. Signatures: Dispatcher [facility] EDBlaire Jiménez, [place]-C OUTBOUND SALES SPECIALIST-Csnw Dylon Turner MD MD rn Leal, Jahala, RN RN jl7 Potter, Jennie cp4
--- NOTE | 2023-01-22 17:11 | ER ---
Nurse's Notes [facility] Name: Jocy Claros Age: 22 yrs Sex: Female : 2000 Arrival Date: 01/22/2023 Time: 15:38 Bed IW2 Private MD: Diagnosis: Candidiasis, unspecified Presentation: 01/22 15:51 Chief complaint: Burning rash on groin and nausea x 2 days, vomit x 1 today. On Keflex jl7 day 4 for UTI. Coronavirus screen: At this time, the client does not indicate any symptoms associated with coronavirus-19. Ebola Screen: No symptoms or risks identified at this time. Initial Sepsis Screen: Does the patient meet any 2 criteria? No. Patient's initial sepsis screen is negative. Does the patient have a suspected source of infection? No. Patient's initial sepsis screen is negative. Risk Assessment: Do you want to hurt yourself or someone else? Patient reports no desire to harm self or others. Onset of symptoms was January 21, 2023. 15:51 Method Of Arrival: Ambulatory jl7 15:51 Acuity: FILEMON 4 jl7 Historical: - Allergies: 15:53 No Known Allergies; jl7 - Home Meds: 15:55 Invega Sustenna intramuscular [Active]; Risperdal Oral [Active]; testosterone cypionate jl7 intramuscular [Active]; - PMHx: 15:53 Anxiety; Bipolar disorder; epilepsy; Transitioning from female to male; jl7 - Immunization history:: Adult Immunizations up to date. - Social history:: Smoking status: Patient denies any tobacco usage or history of. Vital Signs: 15:51 BP 116 / 71; Pulse 87; Resp 16; Temp 98.5; Pulse Ox 98% on R/A; Weight 90.72 kg; Height jl7 5 ft. 8 in. ; Pain 10/10; 15:51 Body Mass Index 30.41 (90.72 kg, 172.72 cm) jl7 15:51 Pain Scale: Adult jl7 ED Course: 15:43 Patient arrived in ED. im 15:49 Blaire Jones [facility]NP-C [facility] snw 15:49 Dylon Turner MD is Attending Physician. snw 15:53 Triage completed. jl7 15:53 Arm band placed on. jl7 Administered Medications: 17:34 Drug: Fluconazole PO 200 mg PO once Route: PO; cp4 Outcome: 17:11 Discharge ordered by MD. carballo 17:34 Patient left the ED. cp4 Signatures: Blaire Jones FNP-C FNP-Corona Locke RN RN jl7 Gabrielle Geiger Christina cp4 Corrections: (The following items were deleted from the chart) 15:53 15:50 Chief complaint: mireya gomes
[2023-01-22] MEDS ORDERED: FLUCONAZOLE 100 MG TAB ONE (17:23)
[2023-01-22 17:41] VITALS: BP 116/71; TEMP 98.5; O2SAT 98
== END 2023-01-22 17:34 | disposition home or self-care (01) ==
LOC: ER 15:38
DX: B37.9 Candidiasis, unspecified (principal); F31.9 Bipolar disorder, unspecified
CPT/HCPCS: 99282

== ENCOUNTER 2023-01-23 22:30 | Emergency (ER) | payer OTHER, SELFPAY ==
--- OUTSIDE RECORDS SUMMARY | 2023-01-23 22:33 | XMS REPORT | Continuity of Care Document ---
:2000 Author Organization [facility] t Address [address] [facility] [address] [place] [address] Care Team Providers Name Role Phone ILANA HAWKINS Primary Care Physician Unavailable ILANA HAWKINS Attending Clinician Unavailable Ilana Hawkins MD Attending Clinician TONI ALMARAZ Attending Clinician Unavailable TISH LONG Attending Clinician Unavailable KNOW, DOES_NOT Admitting Clinician Unavailable Payers Payer Name Policy Type Policy Number Effective Date Expiration Date Reanna alvarez [facility] [id number] 2017 00:00:00 [facility] - [id number] [place] (MEDICAID REPLACEMENT - HMO) Problems Condition Condition Condition Status Onset Resolution Last Treating Co mments Source Name Details Category Date Date Treatment Clinician Date 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 5-25 [facility]y [place] hormone [place] [facility] [address] [place] [address] 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 00:00: [address] Eating Eating Disease Active Univers disorder disorder 5-25 ity of 00:00: [address] LOC (loss LOC (loss Disease Recurre [...] Known DA Active U [facility]ie 12-20 [facility] 00:[facility]: d [facility] NO KNOWN Drug Active Univers ALLERGIE Class ity of S [facility] Social History Social Habit Start Date Stop Date Quantity Comments Source Sexual orientation [facility] Hospital History [facility] Alcohol Std Drinks [facility] History [facility] Alcohol Binge Medical [facility] Gender identity [facility] History of tobacco Cigarette Smoker University of use [facility] Exposure to 2022-08-06 2022-08-16 Not sure University of SARS-CoV-2 (event) 00:00:00 15:09:00 [facility] Cigarette 2022-08-16 2022-08-16 University of pack-years 00:00:00 00:00:00 [facility] Tobacco use and 2022-08-16 2022-08-16 Smokeless Universit y of exposure 00:00:00 00:00:00 tobacco non-user [facility] Alcohol Comment 2019-05-20 2019-05-20 couple of times Meth odist 00:00:00 00:00:00 a month Hospital Cigarettes smoked 2019-05-20 2019-05-[address] current (pack per 00:00:00 00:00:00 Hospita l day) - Reported History of Social 2019-05-20 2019-05-[address] function 00:00:00 00:00:00 Hospital Alcohol intake 2019-02-24 2019-02-[address] [facility] [facility] 00:00:00 00:00:00 non-drinker of Medical Ce nter alcohol (finding) History SDDC 2019-02-24 2019-02-24 1 [facility] Alcohol Frequency 00:00:00 00:00:00 [facility] Sex Assigned At [birth year] [facility] 00:00:00 00:00:00 Hospital Smoking Status Start Date Stop Date Source Ex-smoker 2022-08-16 00:00:00 2022-08-16 00:00:00 [facility] Smokes tobacco daily 2019-05-20 00:00:00 [facility] Light tobacco smoker 2019-02-24 00:00:00 [facility] Medications Ordered Filled Start Stop Current Ordering Indication Dosage Frequency Signature Comments Components Source Medication Medication Date Date Medication? Clinician (SIG) Name Name omeprazole Yes [id number] 40mg Take 1 Univers 40 mg 5-25 capsule by ity of capsule 00:00: mouth in [place] 00 the morning. Branch omeprazole Yes [id number] 40mg Take 1 Univers 40 mg 5-25 capsule by ity of capsule 00:00: mouth in [place] the . Branch DECARA Yes [id number] Take 1 Univers 1,250 mcg 5-16 capsule by ity of (50,000 00:00: mouth [place] unit) 00 weekly. Medical capsule Branch DECARA Yes [id number] Take 1 Univers 1,250 mcg 5-16 capsule by ity of (50,000 00:00: mouth [place] unit) 00 weekly. Medical capsule Branch traZODone Yes 1 (EACH) Univ ers 50 mg 5-15 BEDTIME ity of tablet 00:00: ( [place] 00 NEEDED) Medical NEEDED FOR Branch SLEEP ARIPiprazol Yes 5mg Take 1 Univ ers e 5 mg 5-15 tablet by ity of tablet 00:00: mouth at [place] 00 bedtime. Medical Branch traZODone 0 Yes 1 (EACH) Univ ers 50 mg 5-15 BEDTIME ity of tablet 00:00: ( [place] 00 NEEDED) Medical NEEDED FOR Branch SLEEP ARIPiprazol Yes 5mg Take 1 Univ ers e 5 mg 5-15 tablet by ity of tablet 00:00: mouth at [place] [address] bedtime. Medical Branch risperiDONE 2022- No 2 [...] l times a day with meals. levETIRAcet 2019-0 Yes 500mg Q.5D Take 500 [...] Source Systolic blood 2022-08-16 20:14:00 118 mm[facility]Hg[facility] Di[facility] blood 2022-08-16 20:14:00 70 mm[Hg] [facility] Heart rate 2022-08-16 20:14:00 76 /min [facility] Body temperature 2022-08-16 20:14:00 36.67 [facility]ista [facility] Respiratory rate 2022-08-16 20:14:00 18 /min [facility] Body height 2022-08-16 20:14:00 172.7 cm [facility] Body weight 2022-08-16 20:14:00 86.773 kg [facility] BMI 2022-08-16 20:14:00 29.09 kg/m2 [facility] Oxygen saturation in 2022-08-16 20:14:00 99 /min [facility] Arterial blood by [facility] Pulse oximetry Branch Procedures This patient has no known procedures. Plan of Care Planned Activity Planned Date Details Comments Source Future Scheduled 2021-11-23 INFLUENZA VACCINE (#1) [facility] 00:00[facility]00 [code = INFLUENZA Medical Ce nter VACCINE (#1)] Future Scheduled 2021-03-[address] [facility] Test 00:00:00 (12+) [code = [facility] DEPRESSION SCREENING (12+)] Future Scheduled [address] [facility] Test 00:00:00 (procedure) [code = [facility] [id number]] Future Scheduled 2020-01-29 DTAP/TDAP/TD VACCINES CH I [...] Facility Department ID 2019-04-05 Inpatient HCAKW KARINA [id number] [facility] 15:40:[address] [place] [address] 2022-10-11 2022-10-11 Outpatient R [facility] [id number] Univers 10:20:00 10:20:00 , ILANA collins [facility] 2022-08-16 2022-08-16 Office [facility] [id number] Univers 15:40:00 15:53:34 Visit , Ilana [facility] [id number] itYary RAMÍREZ [id number] Malcolm as NANO?BLEA [id number] [address] MEDICAL OFFICE BUILDING 2022-08-16 2022-08-16 Outpatient R [facility] [id number] [facility] 15:40:00 15:53:34 , ILANA y[place] y [facility] 2021-06-05 2021-06-05 Outpatient PRIV PRIV [id number] [id number] [facility] 12:38:00 12:38:00 [id number] Medica l 2021-06-03 2021-06-03 Outpatient PRIV PRIV [id number] [id number] [facility] 06:48:00 06:48:00 [id number] Medica l 2021-05-27 2021-05-27 Outpatient PRIV PRIV [id number] [id number] [facility] 07:06:00 07:06:00 [id number] Medica l 2021-05-27 2021-05-27 Outpatient PRIV PRIV [id number] 4-2 [facility] 07:06:00 07:06:00 [id number] Medica l 2019-05-20 2019-05-20 Emergency [facility] [id number] [address] [place] 00:00:00 00:00:00 [place] [address] Results Test Description Test Time Test Comments Results Result [facility] e Comments - XR HAND 3 + V RT 2019-04-05 [place]: St: 18:07:00 REG Name: ALLI GUIDO [facility] : 2000 Age/S: 19/F [address] Unit #: [id number] Loc: [place] [address] Phys: Alfredo Jasso MD Acct: [id number] Dis Date: Status: REG ER PHONE #: [phone] Exam Date: 04/05/2019 174 FAX #: [phone] Reason: punce wall EXAMS: CPT CODE: [id number] XR HAND 3 + V RT [id number] EXAM: Right wrist 3 views Location code: [...] the hand. PAGE 1 Signed Report (CONTINUED) [place]: St: REG Name: [facility] [place] : 2000 Age/S: 19/F [address] Unit #: [id number] Loc: [place] [address] Phys: Alfredo Jasso MD Acct: [id number] Dis Date: Status: REG ER PHONE #: [phone] Exam Date: 04/05/20191739 FAX #: [phone] Reason: puncehd wall EXAMS: CPT CODE: [id number] XR HAND 3 + V RT [id number] (Continued) IMPRESSION: Right hand 1. No acute osseous abnormality. 2. Soft tissue swelling along the dorsum of the hand. at 1807 Reported and signed by: Matthieu Salmeron MD CC: Technologist: Corina Lin PAGE 2 Signed Report [place]: [facility]: REG Name: ALLI GUIDO [facility] : 2000 Age/S: 19/F [address] Unit #: [id number] Loc: [place] [address] Phys: Alfredo Jasso MD Acct: [id number] Dis Date: Status: REG ER PHONE #: [phone] Exam Date: 04/05/20191739 FAX #: [phone] Reason: puncehd wall EXAMS: CPT CODE: [id number] XR HAND 3 + V RT 75835 (Continued) Trnscrd Date/Time/By: 04/05/2019 (1807) : By: [email or web address] PAGE 3 Signed Report - XR WRIST 3 + V 2019-04-05 [place]: St: RT 18:07:00 REG Name: [place] : 2000 Age/S: 19/F [address] Unit #: [id number] Loc: [place] [address] Phys: Alfredo Jasso MD Acct: [id number] Dis Date: Status: REG ER PHONE #: [phone] Exam Date: 04/05/2019 1450 FAX #: [phone] Reason: pain s/p punchthroug wall EXAMS: CPT CODE: [id number] XR WRIST 3 + V RT [id number] EXAM: Right wrist 3 views Location code: [...] the hand. PAGE 1 Signed Report (CONTINUED) [place]: [facility]: REG Name: [place]I [place] : 2000 Age/S: 19/F [address] Unit #: [id number] Loc: [place] [address] Phys: Alfredo Jasso MD Acct: [id number] Dis Date: Status: REG ER PHONE #: [phone] Exam Date: 04/05/2019 174 FAX #: [phone] Reason: pain s/p punchthroug wall EXAMS: CPT CODE: [id number] XR WRIST 3 + V RT [id number] (Continued) IMPRESSION: Right hand 1. No acute osseous abnormality. 2. Soft tissue swelling along the dorsum of the hand. at 1807 Reported and signed by: Matthieu Salmeron MD CC: Technologist: Yisel Lin; CEASAR CONNELLY PAGE 2 Signed Report [place]: St: REG Name: LATAALLI R [facility] : 2000 Age/S: 19/F [address] Unit #: [id number] Loc: [place] [address] Phys: Alfredo Jasso MD Acct: [id number] Dis Date: Status: [facility] ER PHONE #: [phone] Exam Date: 04/05/20191739 FAX #: [phone] Reason: pain s/p punchthroug wall EXAMS: CPT CODE: [id number] XR WRIST 3 + V RT [id number] (Continued) Trnscrd Date/Time/By: 04/05/2019 (1806) : By: [...] after 48 hours toconf irm . URINALYSIS [id number] 16:21:00 Test Item Value Reference Range Interpretation [...] /HPF 0-5 (RARE) = SQU) BASIC METABOLIC [id number] 16:20:00 Test Item Value Reference Range Interpretation [...] 8.9 mg/dL 8.4-10.2 N CA) CBC W/AUTO [id number] 16:11:00 Test Item Value Reference Range Interpretation [...] 0.02 x10 3/uL 0.0-0.1 N MR, BRAIN, [id number] 12:12:00Anesthesia:->NoneDeos the patient have an implanted electronic [...] MDReport Verified Date/Time: 02/25/2019 12:12:10 Reading Location: [address] Consult Reading Room RAPID DRUG SCREEN, [id number] 15:26:00 Test Item Value Reference Range Interpretation [...] situations. Chain of custody not maintained. Some zrxc-tsq-tiqsinh medications, as well as adulterants, may cause [...] m CALCULATE ESTIM ATED GFR. URINALYSIS W/ [id number] 14:29:00 Test Item Value Reference Range Interpretation [...] 2 /LPF 514) SOURCE(BEAKER) (test code = 8565) CBC W/PLT COUNT & AUTO [id number] 14:22:00 Test Item Value Reference Range Interpretation [...] (test code = 2801) CT, BRAIN, WITHOUT [id number] 14:15:00Reason for exam:->seizure activityReason for exam:->h/o pseudoseizuresWhat [...] Gallegos Verified Date/Time: 02/24/2019 14:15:38 Reading Location: [address] Neuro Reading Room Elec tronically signed by: DAVON GALLEGOS MD on 02/24/2019 02:15 PM
--- NOTE | 2023-01-24 00:12 | ER ---
Nurse's Notes [facility] Name: Jocy Claros Age: 22 yrs Sex: Female : 2000 Arrival Date: 01/23/2023 Time: 22:30 Bed 12 Private MD: Diagnosis: Herpesviral vulvovaginitis Presentation: 01/23 22:43 Chief complaint: Patient states: HAS HAD A RASH FOR A FEW DAYS .WAS DX WITH A YEAST j7 INFECTION YESTERDAY. TOOK FIRST DOSE YESTERDAY AND NOW HER LABIA LIPS FEEL HARD TODAY. Coronavirus screen: At this time, the client does not indicate any symptoms associated with coronavirus-19. Ebola Screen: No symptoms or risks identified at this time. Initial Sepsis Screen: Does the patient meet any 2 criteria? RR > 20 per min. No. Patient's initial sepsis screen is negative. Does the patient have a suspected source of infection? No. Patient's initial sepsis screen is negative. Risk Assessment: Do you want to hurt yourself or someone else? Patient reports no desire to harm self or others. Onset of symptoms was January 23, 2023. 22:43 Method Of Arrival: Ambulatory [facility] 22:43 Acuity: FILEMON 3 jj7 Triage Assessment: 22:50 General: Appears in no apparent distress. comfortable, Behavior is calm, cooperative, jj7 appropriate for age. Pain: Complains of pain in LABIA. 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 - Social history:: Smoking status: Reported history of juuling and/or vaping. Patient uses alcohol, but reports only rare drinking. street drugs, marijuana. Screenin/02 00:14 [facility] ED Fall Risk Assessment (Adult) History of falling in the last 3 months, kl including since admission No falls in past 3 months (0 pts) Confusion or Disorientation No (0 pts) Intoxicated or Sedated No (0 pts) Impaired Gait No (0 pts) Mobility Assist Device Used No (0 pt) Altered Elimination No (0 pt) Score/Fall Risk Level 0 - 2 = Low Risk Oriented to surroundings, Maintained a safe environment. Abuse screen: Denies threats or abuse. Nutritional screening: No deficits noted. Tuberculosis screening: No symptoms or risk factors identified. Assessment: 00:14 Reassessment: Patient appears in no apparent distress at this time. Vital Signs: 01/23 22:43 BP 124 / 80; Pulse 83; Resp 17; Temp 98.8; Pulse Ox 99% ; Weight 90.72 kg; Height 5 ft. jj7 8 in. ; Pain 6/10; 22:43 Body Mass Index 30.41 (90.72 kg, 172.72 cm) 7 22:43 Pain Scale: Adult [facility] ED Course: 22:34 Patient arrived in ED. ag3 22:42 Becky Carr FNP-C is [facility]. kb 22:42 Noel Cobos MD is Attending Physician. kb 22:50 Triage completed. 7 22:50 Arm band placed on right wrist. [facility] 01/24 00:14 No provider procedures requiring assistance completed. Patient did not have IV access kl during this emergency room visit. 01:29 Assist provider with pelvic exam: Performed by Becky BHAGAT Patient tolerated kl well. 01:30 No apparent distress. kl 01:30 Provided Education on: herpes. kl Administered Medications: No medications were administered Medication: 01:30 VIS not applicable for this client. kl Outcome: 00:12 Discharge ordered by . kb 00:15 Patient left the ED. kl 01:22 Discharge ordered by . kb 01:28 Patient left the ED. ls5 01:29 Discharged to home ambulatory, kl 01:29 Condition: stable 01:29 Discharge instructions given to patient, Instructed on discharge instructions, follow up and referral plans. medication usage, Demonstrated understanding of instructions, follow-up care, medications, Prescriptions given X 1, Signatures: Becky Carr FNP-C FNP-Za Gary RN Ely Lai ag3 Miriam Claros RN RN jj7 Suarez, Lorenzo ls5
--- NOTE | 2023-01-24 00:13 | EDPHYS ---
Physician Documentation [facility] Name: Jocy Claros Age: 22 yrs Sex: Female : 2000 Arrival Date: 01/23/2023 Time: 22:30 Bed 12 Private MD: LULU Physician Noel Cobos HPI: 01/24 00:16 This 22 yrs old Black Female presents to ER via Ambulatory with complaints of Rash. kb 00:16 Patient is a 22-year-old female who presents for rash to vaginal area and swelling to kb labia. States rash started yesterday and swelling started today. Denies fever.. 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 - Social history:: Smoking status: Reported history of juuling and/or vaping. Patient uses alcohol, but reports only rare drinking. street drugs, marijuana. ROS: 01/24 00:14 Constitutional: Negative for fever, chills, and weight loss, kb : Positive for swelling to labia, rash, All other systems are negative, Exam: 00:14 Constitutional: This is a well developed, well nourished patient who is awake, alert, kb and in no acute distress. Head/Face: Normocephalic, atraumatic. ENT: Moist Mucous membranes Respiratory: Respirations even and unlabored. No increased work of breathing. Talking in full sentences MS/ Extremity: Pulses equal, no cyanosis. Neurovascular intact. Full, normal range of motion. Neuro: Awake and alert, GCS 15, oriented to person, place, time, and situation. Moves all extremities. Normal gait. 01:25 : Pelvic Exam: External exam: herpes lesions noted, reveals ulcerations on external kb genitalia, Vital Signs: 01/23 22:43 BP 124 / 80; Pulse 83; Resp 17; Temp 98.8; Pulse Ox 99% ; Weight 90.72 kg; Height 5 ft. jj7 8 in. ; Pain 6/10; 22:43 Body Mass Index 30.41 (90.72 kg, 172.72 cm) jj7 22:43 Pain Scale: Adult jj7 MDM: 22:42 Patient medically screened. kb 01/24 00:14 Differential diagnosis: candidiasis, allergic reaction, herpes. Data reviewed: vital kb signs, nurses notes. ED course: Initial evaluation completed in triage. Pt educated that I would perform pelvic exam when placed in a room. Pt elected to leave [facility] prior to room availability and pelvic exam. 00:55 ED course: Pt returned to [facility] and was placed in room. Changing into gown for exam. kb 01:25 Counseling: I had a detailed discussion with the patient and/or guardian regarding the kb historical points, exam findings, and any diagnostic results supporting the discharge/admit diagnosis, the need for outpatient follow up, an OB/Gyne specialist, to return to the emergency department if symptoms worsen or persist or if there are any questions or concerns that arise at home. Administered Medications: No medications were administered Disposition Summary: 01/24/23 01:22 Discharge Ordered Notes: Location: Home(01/24/23 01:22) kb Condition: Stable(01/24/23 01:22) kb Diagnosis - Herpesviral vulvovaginitis kb Followup: kb - With: Emergency Department - When: As needed - Reason: Worsening of condition Followup: kb - With: Private Physician - When: 2 - 3 days - Reason: Recheck today's complaints, Continuance of care, Re-evaluation by your physician Discharge Instructions: - Discharge Summary Sheet kb - Genital Herpes kb Forms: - Medication Reconciliation Form kb - Thank You Letter kb - Antibiotic Education kb - Prescription Opioid Use kb - Patient Portal Instructions kb - Leadership Thank You Letter kb Prescriptions: - Valtrex 1 gram Oral tablet - take 1 tablet ORAL route every 12 hours for 10 days; 20 tablet; Refills: 0, kb Product Selection Permitted Signatures: Becky Carr FNP-C FNP-Miriam León RN RN jj7 Corrections: (The following items were deleted from the chart) 00:55 00:12 Home kb kb 00:55 00:12 Stable kb kb 00:55 00:12 Rash and other nonspecific skin eruption kb kb
[2023-01-24 01:34] VITALS: BP 124/80; TEMP 98.8; O2SAT 99
== END 2023-01-24 01:28 | disposition home or self-care (01) ==
LOC: ER 22:30
DX: A60.04 Herpesviral vulvovaginitis (principal)
CPT/HCPCS: 99283

== ENCOUNTER 2023-09-12 10:23 | Emergency (ER) | payer OTHER ==
[2023-09-12 12:45] LABS: Specific Gravity > 1.030 (1.005-1.030)
[2023-09-12 12:49] LABS: Specific Gravity > 1.030 (1.005-1.030); Sqamous Epithelial <5 /HPF (None Seen); Transitional Epithelial <5 /HPF (None Seen); Urine Bacteria <20 /HPF (<20); Urine Bilirubin NEGATIVE (Negative); Urine Blood 1+ (Negative); Urine Clarity Extremely Turbid (Clear); Urine Color Yellow (Yellow); Urine Culture Reflex Order REFLEXED; Urine Glucose NEGATIVE (Negative); Urine Ketones 3+ (Negative); Urine Micro Reflex YN NO BILL MICROSCOPIC; Urine Mucus 4+ /HPF (None Seen); Urine Nitrite NEGATIVE (Negative); Urine Protein 1+ (Negative); Urine RBC 21-50 /HPF (None Seen); Urine Urobilinogen 2+ (Normal); Urine WBC >50 /HPF (<5)
--- NOTE | 2023-09-12 13:13 | ER ---
Nurse's Notes [facility] Name: Jocy Claros Age: 23 yrs Sex: Female : 2000 Arrival Date: 09/12/2023 Time: 10:23 Bed 11 Private MD: Diagnosis: UTI, possible STI Presentation: 09/11 10:38 Chief complaint: Patient states: Pelvic pain for 4 days, getting worse. No vaginal nj1 bleeding. Nausea and vomiting. Denies diarrhea. Coronavirus screen: Vaccine status: Patient reports being unvaccinated. Ebola Screen: Patient denies travel to an Ebola-affected area in the 21 days before illness onset. Initial Sepsis Screen: Does the patient meet any 2 criteria? No. Patient's initial sepsis screen is negative. Does the patient have a suspected source of infection? No. Patient's initial sepsis screen is negative. Risk Assessment: Do you want to hurt yourself or someone else? Patient reports no desire to harm self or others. Onset of symptoms was September 08, 2023. 10:38 Method Of Arrival: Ambulatory [facility] 10:38 Acuity: FILEMON 3 [facility] Triage Assessment: 10:42 General: Appears in no apparent distress. uncomfortable, Behavior is calm, cooperative, nj1 appropriate for age. Pain: Complains of pain in pelvis Pain currently is 8 out of 10 on a pain scale. Neuro: Level of Consciousness is awake, alert, obeys commands, Oriented to person, place, time, situation. Cardiovascular: Patient's skin is warm and dry. Respiratory: Airway is patent Respiratory effort is even, unlabored. GI: Reports nausea. Historical: - Allergies: 10:40 No Known Allergies; nj1 - Home Meds: 10:40 testosterone cypionate intramuscular [Active]; nj1 - PMHx: 10:40 Anxiety; Bipolar disorder; epilepsy; Transitioning from female to male; nj1 - PSHx: 10:40 None; nj1 - Immunization history:: Client reports receiving the 2nd dose of the Covid vaccine. - Infectious Disease History:: Denies. - Social history:: Smoking status: Reported history of juuling and/or vaping. Screenin:02 [facility] ED Fall Risk Assessment (Adult) History of falling in the last 3 months, cm10 including since admission No falls in past 3 months (0 pts) Confusion or Disorientation No (0 pts) Intoxicated or Sedated No (0 pts) Impaired Gait No (0 pts) Mobility Assist Device Used No (0 pt) Altered Elimination No (0 pt) Score/Fall Risk Level 0 - 2 = Low Risk Oriented to surroundings, Maintained a safe environment, Hourly rounding (assess needs \T\ fall precautionary measures) done. Abuse screen: Denies threats or abuse. Denies injuries from another. Nutritional screening: No deficits noted. Tuberculosis screening: No symptoms or risk factors identified. Assessment: 12:01 General: Appears in no apparent distress. comfortable, Behavior is calm, cooperative. cm10 Pain: Complains of pain in pelvis Pain does not radiate. Quality of pain is described as crampy. Neuro: No deficits noted. Level of Consciousness is awake, alert, obeys commands, Oriented to person, place, time, situation, Appropriate for age. Respiratory: No deficits noted. Airway is patent Respiratory effort is even, unlabored, Respiratory pattern is regular, symmetrical. GI: No deficits noted. Reports lower abdominal pain, cramping, nausea, vomiting. : Reports discharge, yellow. Musculoskeletal: No deficits noted. Range of motion: intact in all extremities. 13:27 General: Pending D/C due to being on shot time.. cm10 Vital Signs: 10:38 BP 143 / 87; Pulse 71; Resp 16; Temp 99.1; Pulse Ox 100% ; Weight 93.89 kg; Height 5 nj1 ft. 8 in. ; 10:38 Body Mass Index 31.47 (93.89 kg, 172.72 cm) nj1 ED Course: 10:25 Patient arrived in ED. mr 10:26 Mino Webster MD is Attending Physician. sp3 10:40 Triage completed. nj1 10:42 Arm band placed on right wrist. nj1 11:41 Vanessa Andres, NICOLE is Primary Nurse. cm10 12:03 Patient has correct armband on for positive identification. Bed in low position. Call cm10 light in reach. Side rails up X 1. Provided Education on: ER process and procedures.. 12:35 GC (Reza/Chl) Probe URINE Sent. cm10 12:35 Test, Urine Sent. cm10 12:35 UAM Sent. cm10 14:01 No provider procedures requiring assistance completed. Patient did not have IV access cm10 during this emergency room visit. Administered Medications: 13:37 Drug: Rocephin (cefTRIAXone) IM 250 mg IM once Route: IM; Site: left gluteus; nj1 14:01 Follow up: Response: No adverse reaction cm10 13:37 Drug: AZITHromycin PO 1 grams PO once Route: PO; nj1 14:01 Follow up: Response: No adverse reaction cm10 Medication: 12:02 VIS not applicable for this client. cm10 Outcome: 13:13 Discharge ordered by . kenji 14:01 Discharged to home ambulatory, cm10 14:01 Condition: good 14:01 Discharge instructions given to patient, Instructed on discharge instructions, follow up and referral plans. medication usage, Demonstrated understanding of instructions, follow-up care, medications, Prescriptions given X 1, 14:02 Patient left the ED. cm10 Signatures: Desiree Beyer Reg Reg mr Patel, Setul, MD MD sp3 Anna Silva RN RN nj1 Vanessa Andres RN RN cm10
--- NOTE | 2023-09-12 13:13 | EDPHYS ---
Physician Documentation [facility] Name: Jocy Claros Age: 23 yrs Sex: Female : 2000 Arrival Date: 09/12/2023 Time: 10:23 Bed 11 Private MD: ED Physician Mino Webster HPI: 09/11 13:08 This 23 yrs old Black Female presents to ER via Ambulatory with complaints of Abdominal sp3 Cramping. 13:08 23-year-old female with history of bipolar disease, epilepsy, anxiety, who is also sp3 transitioning from female to male, presents to the ED with chief complaint of pelvic pain and dysuria and urinary frequency. She is also concerned about possible STI as she is having vaginal discharge clear in nature. She denies any headache, fever, URI symptoms, chest pain, shortness of breath, upper abdominal pain, back pain, rash, bleeding or any other signs or symptoms on ROS at this time.. Historical: - Allergies: 10:40 No Known Allergies; nj1 - Home Meds: 10:40 testosterone cypionate intramuscular [Active]; nj1 - PMHx: 10:40 Anxiety; Bipolar disorder; epilepsy; Transitioning from female to male; nj1 - PSHx: 10:40 None; nj1 - Immunization history:: Client reports receiving the 2nd dose of the Covid vaccine. - Infectious Disease History:: Denies. - Social history:: Smoking status: Reported history of juuling and/or vaping. ROS: 13:11 Constitutional: Negative for fever, chills, and weight loss, Eyes: Negative for injury, sp3 pain, redness, and discharge, ENT: Negative for injury, pain, and discharge, Neck: Negative for injury, pain, and swelling, Cardiovascular: Negative for chest pain, palpitations, and edema, Respiratory: Negative for shortness of breath, cough, wheezing, and pleuritic chest pain, Back: Negative for injury and pain, MS/Extremity: Negative for injury and deformity, Skin: Negative for injury, rash, and discoloration, Neuro: Negative for headache, weakness, numbness, tingling, and seizure, Psych: Negative for depression, anxiety, suicide ideation, homicidal ideation, and hallucinations, Allergy/Immunology: Negative for hives, rash, and allergies, Endocrine: Negative for neck swelling, polydipsia, polyuria, polyphagia, and marked weight changes, Hematologic/Lymphatic: Negative for swollen nodes, abnormal bleeding, and unusual bruising, 13:11 All other systems are negative, Exam: 13:11 Constitutional: This is a well developed, well nourished patient who is awake, alert, sp3 and in no acute distress. Head/Face: Normocephalic, atraumatic. Eyes: Pupils equal round and reactive to light, extra-ocular motions intact. Lids and lashes normal. Conjunctiva and sclera are non-icteric and not injected. Cornea within normal limits. Periorbital areas with no swelling, redness, or edema. Neck: Trachea midline, no thyromegaly or masses palpated, and no cervical lymphadenopathy. Supple, full range of motion without nuchal rigidity, or vertebral point tenderness. No Meningismus. Chest/axilla: Normal chest wall appearance and motion. Nontender with no deformity. No lesions are appreciated. Cardiovascular: Regular rate and rhythm with a normal S1 and S2. No gallops, murmurs, or rubs. Normal PMI, no JVD. No pulse deficits. Respiratory: Lungs have equal breath sounds bilaterally, clear to auscultation and percussion. No rales, rhonchi or wheezes noted. No increased work of breathing, no retractions or nasal flaring. Abdomen/GI: Soft, non-tender, with normal bowel sounds. No distension or tympany. No guarding or rebound. No evidence of tenderness throughout. Back: No spinal tenderness. No costovertebral tenderness. Full range of motion. Neuro: Awake and alert, GCS 15, oriented to person, place, time, and situation. Cranial nerves II-XII grossly intact. Motor strength 5/5 in all extremities. Sensory grossly intact. Cerebellar exam normal. Normal gait. Psych: Awake, alert, with orientation to person, place and time. Behavior, mood, and affect are within normal limits. 13:11 Abdomen/GI: Mild abdominal pain over bladder., Vital Signs: 10:38 BP 143 / 87; Pulse 71; Resp 16; Temp 99.1; Pulse Ox 100% ; Weight 93.89 kg; Height 5 nj1 ft. 8 in. ; 10:38 Body Mass Index 31.47 (93.89 kg, 172.72 cm) nj1 MDM: 10:45 Patient medically screened. sp3 13:12 Data reviewed: vital signs, nurses notes, lab test result(s). ED course: hCG is sp3 negative. UA is positive for UTI. We will treat with Rocephin IM and Zithromax p.o. and discharge patient home on p.o. Bactrim. Follow-up with PCP.. 09/11 10:46 Order name: UAM; Complete Time: 12:52 sp3 09/11 10:46 Order name: Test, Urine; Complete Time: 12:52 sp3 09/11 12:06 Order name: Add On-Lab sp3 09/11 12:06 Order name: GC (Reza/Chl) Probe URINE sp3 09/11 12:51 Order name: Urine Culture EDMS Administered Medications: 13:37 Drug: Rocephin (cefTRIAXone) IM 250 mg IM once Route: IM; Site: left gluteus; [facility] 14:01 Follow up: Response: No adverse reaction cm10 13:37 Drug: AZITHromycin PO 1 grams PO once Route: PO; [facility] 14:01 Follow up: Response: No adverse reaction cm10 Disposition Summary: 09/12/23 13:13 Discharge Ordered Notes: Location: Home sp3 Condition: Stable sp3 Diagnosis - UTI, possible STI sp3 Followup: sp3 - With: Private Physician - When: Upon discharge from the Emergency Department - Reason: Continuance of care Discharge Instructions: - Discharge Summary Sheet sp3 - Urinary Tract Infection, Adult sp3 - Preventing Sexually Transmitted Infections, Adult sp3 Forms: - Work release form aa5 - Medication Reconciliation Form sp3 - Antibiotic Education sp3 - Prescription Opioid Use sp3 - Patient Portal Instructions sp3 - Leadership Thank You Letter sp3 Prescriptions: - Bactrim DS 800-160 mg Oral Tablet - take 1 tablet ORAL route every 12 hours for 7 days; 14 tablet; Refills: 0, sp3 Product Selection Permitted Signatures: Dispatcher [employer] EDMino Jerry MD MD sp3 Anna Silva RN RN nj1 Vanessa Andres RN cm10 Corrections: (The following items were deleted from the chart) 10:47 10:47 Urinalysis W/Microscopic+U.LAB.BRZ ordered. EDMS EDMS 10:47 10:47 Test, Urine+UC.LAB.BRZ ordered. EDMS EDMS
[2023-09-12] MEDS ORDERED: CEFTRIAXONE 250 MG/VIAL ONE (13:17)
[2023-09-12] MEDS ORDERED: AZITHROMYCIN 250 MG TAB ONE (13:17)
[2023-09-12] MEDS ORDERED: LIDOCAINE 1% MPF 2 ML AMPULE ONE (13:18)
[2023-09-12 14:34] VITALS: BP 143/87; TEMP 99.1; O2SAT 100
== END 2023-09-12 14:02 | disposition home or self-care (01) ==
LOC: ER 10:23
DX: N39.0 Urinary tract infection, site not specified (principal)
CPT/HCPCS: 87088; 81001; 87086; 81025; 87590; 87490; 96372; 99284; J0696